=== PATIENT | female | born 1940 | race Two or more races ===

== ENCOUNTER 2017-12-21 12:18 | Inpatient (IN) | payer OTHER, MEDICAID ==
[2017-12-21] MEDS ORDERED: NS 1,000 ML IV ONE (12:25)
[2017-12-21 12:54] LABS: PLATELET COUNT 220 10^3/uL (150-400)
--- NOTE | 2017-12-21 13:49 | CPEKG ---
Heart Rate: 71 RR Interval: 845 P-R Interval: 188 QRSD Interval: 90 QT Interval: 416 QTC Interval: 453 P Mcfarland: 81 QRS Mcfarland: -30 T Wave Mcfarland: 75 EKG Severity - OTHERWISE NORMAL ECG - EKG Impression: SINUS RHYTHM EKG Impression: LEFT AXIS DEVIATION Electronically Signed By: Kirk Rosenberg 21-Dec-2017 14:45:57
--- NOTE | 2017-12-21 13:52 | EDPHY ---
H & P Time Seen by Provider: 12/21/17 12:51 HPI/ROS: CHIEF COMPLAINT: Weakness HISTORY OF PRESENT ILLNESS: The patient is brought in by paramedics with a reported history of weakness. The patient understands very little in question is unable to provide much history. I contacted her son-in-law who reports that his mother has been unable to get up several times today. She reportedly has had 3 falls at home. She did strike her head on one occasion. There has been no history of fever, vomiting, recent illness or medication changes. REVIEW OF SYSTEMS: A comprehensive 10 point review of systems is otherwise negative aside from elements mentioned in the history of present illness. Source: Patient Exam Limitations: No limitations - Physical Exam Exam: General Appearance: Elderly female, tremulous, no acute distress Eyes: Pupils equal and round no pallor or injection ENT, Mouth: Mucous membranes moist Respiratory: There are no retractions, lungs are clear to auscultation Cardiovascular: Regular rate and rhythm Gastrointestinal: Abdomen is soft and nontender, no masses, bowel sounds normal Neurological: Withdrawals to pain all 4 extremities, unable to participate in cranial nerve exam Skin: Warm and dry, no rashes Musculoskeletal: Neck is supple nontender Extremities: symmetrical, full range of motion Constitutional: Initial Vital Signs Temperature (C) 36.4 C 12/21/17 12:14 Heart Rate 62 12/21/17 12:14 Respiratory Rate 16 12/21/17 12:14 Blood Pressure 148/92 H 12/21/17 12:14 O2 Sat (%) 97 12/21/17 12:14 O2 Delivery Mode Room Air Allergies/Adverse Reactions: Sulfa (Sulfonamide Antibiotics) Allergy (Unknown, Verified 10/11/11 15:54) Unknown Home Medications: Medication Instructions Recorded Acetaminophen [Tylenol Tablet] 500 mg PO TID PRN 05/21/13 Cholecalciferol Vit D3 [Vitamin D3 5,000 units PO DAILY 05/21/13 2000 units (OTC)] Citalopram [celeXA 20 MG (RX)] 10 mg PO DAILY 05/21/13 Gabapentin [Neurontin 300 MG (RX)] 300 mg PO HS 05/21/13 Irbesartan [Avapro 150 mg (RX)] 150 mg PO DAILY 05/21/13 Meclizine HCl [Meclizine HCl 25 mg 12.5 mg PO DAILY 05/21/13 (RX,OTC)] Vitamin B Complex [Vitamin B 1 each PO HS 05/21/13 Complex (OTC)] amLODIPine BESYLATE [Norvasc 5 mg 5 mg PO DAILY 05/21/13 (RX)] oxyCODONE/APAP 5/325 [Percocet 1 tab PO DAILY 05/21/13 5/325 (RX)] Medical Decision Making - Diagnostics EKG Interpretation: EKG: Complete interpretation has been separately recorded in the [facility] archive. Summary impression: Sinus rhythm, no ischemic changes Imaging Results: Imaging Impressions Head CT 12/21/17 12:23 Impression: No evidence for acute intracranial abnormality. Moderate periventricular and deep hemispheric white matter change that can be seen with small vessel ischemic disease. Results called and discussed with Kirk Rosenberg MD on December 21, 2017 at 1302 hours. Head CTA 12/21/17 12:31 Impression: 1. No evidence for significant stenosis or dissection in either carotid artery or vertebral artery. 2. Evidence of prior cervical spine surgery and degenerative disk and degenerative joint disease. Measurement of carotid stenosis is based on the residual internal carotid diameter with [place] Symptomatic Carotid Endarterectomy Trial (NASCET) based stenosis levels. CT Angiogram of the Brain Clinical Indications: Possible CVA. Altered mental status. Technique: CT angiogram of the brain was performed with the uneventful intravenous administration of 85 mL Isovue-370 contrast. Multiplanar reconstructions including 3D reconstructions performed and evaluated on [employer] workstation in order to better evaluate the [place] vessels. Images were manipulated by the radiologist at the computer workstation. Dose reduction techniques were utilized. Findings: Major vessels of the [place] are adequately displayed, demonstrating no evidence of aneurysm, vascular malformation, flow-limiting stenosis, or occlusion. Bilateral cavernous internal carotid arteries and vertebrobasilar system demonstrates no evidence of flow limiting stenosis, aneurysm, occlusion, or dissection. Superior sagittal sinus, transverse sinuses , and major veins demonstrate no evidence of intraluminal thrombi. Impression: Negative CT angiogram of the brain. Results called and discussed with Kirk Rosenberg MD on December 21, 2017 at 1300 hours. Neck CTA 12/21/17 12:31 Impression: 1. No evidence for significant stenosis or dissection in either carotid artery or vertebral artery. 2. Evidence of prior cervical spine surgery and degenerative disk and degenerative joint disease. Measurement of carotid stenosis is based on the residual internal carotid diameter with [place] Symptomatic Carotid Endarterectomy Trial (NASCET) based stenosis levels. CT Angiogram of the Brain Clinical Indications: Possible CVA. Altered mental status. Technique: CT angiogram of the brain was performed with the uneventful intravenous administration of 85 mL Isovue-370 contrast. Multiplanar reconstructions including 3D reconstructions performed and evaluated on [employer] workstation in order to better evaluate the [place] vessels. Images were manipulated by the radiologist at the computer workstation. Dose reduction techniques were utilized. Findings: Major vessels of the [place] are adequately displayed, demonstrating no evidence of aneurysm, vascular malformation, flow-limiting stenosis, or occlusion. Bilateral cavernous internal carotid arteries and vertebrobasilar system demonstrates no evidence of flow limiting stenosis, aneurysm, occlusion, or dissection. Superior sagittal sinus, transverse sinuses , and major veins demonstrate no evidence of intraluminal thrombi. Impression: Negative CT angiogram of the brain. Results called and discussed with Kirk Rosenberg MD on December 21, 2017 at 1300 hours. ED Course/Re-evaluation: The patient presents to the ED with weakness and inability to stand. The patient is difficult to examine. She reportedly fell multiple times. She was taken for a stat CT scan of her head which demonstrates no evidence of intracranial hemorrhage or skull fracture. CT angiogram of the head neck demonstrate no evidence of stenosis or dissection. The patient had an IV established he received a L of normal saline. I contacted the patient's son-in-law who reports her daughter is in route to the hospital. Additional workup included a CBC which is normal in serum chemistries which are unremarkable. I re-evaluated the patient at 2:00 p.m. and she is more oriented. She complains of global weakness. She denies any chest pain, neck pain, numbness or weakness. Collateral information is obtained from the patient's daughter. She had been well yesterday. I am able to reexamined the patient clinically and she has no focal deficits noted on exam. She continues to have weakness with attempted ambulation without evidence of significant hypotension. At this point time I do feel the patient should be admitted to the hospital she is certainly a fall risk. High suspect the presentation today is multifactorial secondary to her age, chronic pain condition and diarrhea. Consultation was made with the hospitalist service. She will be admitted by Dr. Hill for observation. Differential Diagnosis: Differential diagnosis considered includes intracranial hemorrhage, ischemic stroke, carotid artery dissection, dehydration, metabolic abnormality, urinary tract infection - Data Points Laboratory Results: Laboratory Results 12/21/17 12:35 12/21/17 12:35 12/21/17 12/21/17 12/21/17 13:19 12:35 12:35 WBC RBC Hgb POC Hgb Hct POC Hct MCV MCH MCHC RDW Plt Count MPV Neut % (Auto) Lymph % (Auto) [place] % (Auto) Eos % (Auto) Baso % (Auto) Nucleat RBC Rel Count Absolute Neuts (auto) Absolute Lymphs (auto) Absolute Monos (auto) Absolute Eos (auto) Absolute Basos (auto) Absolute Nucleated RBC Immature Gran % Immature Gran # POC Sodium Sodium 136 mEq/L mEq/L (135-145) POC Potassium Potassium 4.4 mEq/L mEq/L (3.3-5.0) POC Chloride Chloride 103 mEq/L mEq/L (97-110) Carbon Dioxide 20 mEq/l L mEq/l (22-31) Anion Gap 13 mEq/L mEq/L (8-16) POC BUN BUN 15 mg/dL mg/dL (7-23) Creatinine 0.7 mg/dL mg/dL (0.6-1.0) POC Creatinine Estimated GFR > 60 Glucose 95 mg/dL mg/dL (70-100) POC Glucose Calcium 9.5 mg/dL mg/dL (8.5-10.4) Total Bilirubin 0.6 mg/dL mg/dL (0.1-1.4) Conjugated Bilirubin 0.5 mg/dL mg/dL (0.0-0.5) Unconjugated Bilirubin 0.1 mg/dL mg/dL (0.0-1.1) AST 33 IU/L IU/L (14-46) ALT 31 IU/L IU/L (9-52) Alkaline Phosphatase 126 IU/L IU/L (38-126) Troponin I < 0.012 ng/mL ng/mL (0.000-0.034) Total Protein 7.0 g/dL g/dL (6.3-8.2) Albumin 3.9 g/dL g/dL (3.5-5.0) Lipase 45 IU/L IU/L (23-300) Urine Color PALE YELLOW Urine Appearance CLEAR Urine pH 7.0 (5.0-7.5) Ur Specific [place] 1.005 (1.002-1.030) Urine Protein NEGATIVE (NEGATIVE) Urine Ketones NEGATIVE (NEGATIVE) Urine Blood NEGATIVE (NEGATIVE) Urine Nitrate NEGATIVE (NEGATIVE) Urine Bilirubin NEGATIVE (NEGATIVE) Urine Urobilinogen NEGATIVE EU EU (0.2-1.0) Ur Leukocyte Esterase NEGATIVE (NEGATIVE) Urine RBC NONE SEEN /hpf /hpf (0-3) Urine WBC 1-3 /hpf /hpf (0-3) Ur Epithelial Cells NONE SEEN /lpf /lpf (NONE-1+) Urine Bacteria TRACE /hpf H /hpf (NONE SEEN) Urine Glucose NEGATIVE (NEGATIVE) 12/21/17 12/21/17 12:35 12:30 WBC 7.81 10^3/uL 10^3/uL (3.80-9.50) RBC 4.17 10^6/uL L 10^6/uL (4.18-5.33) Hgb 11.6 g/dL L g/dL (12.6-16.3) POC Hgb 13.6 gm/dL gm/dL (12.6-16.3) Hct 35.4 % L % (38.0-47.0) POC Hct 40 % % (38-47) MCV 84.9 fL fL (81.5-99.8) MCH 27.8 pg L pg (27.9-34.1) MCHC 32.8 g/dL g/dL (32.4-36.7) RDW 15.8 % H % (11.5-15.2) Plt Count 220 10^3/uL 10^3/uL (150-400) MPV 9.5 fL fL (8.7-11.7) Neut % (Auto) 67.3 % % (39.3-74.2) Lymph % (Auto) 21.4 % % (15.0-45.0) [place] % (Auto) 9.7 % % (4.5-13.0) Eos % (Auto) 1.0 % % (0.6-7.6) Baso % (Auto) 0.3 % % (0.3-1.7) Nucleat RBC Rel Count 0.0 % % (0.0-0.2) Absolute Neuts (auto) 5.26 10^3/uL 10^3/uL (1.70-6.50) Absolute Lymphs (auto) 1.67 10^3/uL 10^3/uL (1.00-3.00) Absolute Monos (auto) 0.76 10^3/uL 10^3/uL (0.30-0.80) Absolute Eos (auto) 0.08 10^3/uL 10^3/uL (0.03-0.40) Absolute Basos (auto) 0.02 10^3/uL 10^3/uL (0.02-0.10) Absolute Nucleated RBC 0.00 10^3/uL 10^3/uL (0-0.01) Immature Gran % 0.3 % % (0.0-1.1) Immature Gran # 0.02 10^3/uL 10^3/uL (0.00-0.10) POC Sodium 136 mEq/L mEq/L (135-145) Sodium POC Potassium 4.2 mEq/L mEq/L (3.3-5.0) Potassium POC Chloride 102 mEq/L mEq/L (97-110) Chloride Carbon Dioxide Anion Gap POC BUN 17 mg/dL mg/dL (7-23) BUN Creatinine POC Creatinine 0.8 mg/dL mg/dL (0.6-1.0) Estimated GFR Glucose POC Glucose 96 mg/dL mg/dL (70-100) Calcium Total Bilirubin Conjugated Bilirubin Unconjugated Bilirubin AST ALT Alkaline Phosphatase Troponin I Total Protein Albumin Lipase Urine Color Urine Appearance Urine pH Ur Specific [place] Urine Protein Urine Ketones Urine Blood Urine Nitrate Urine Bilirubin Urine Urobilinogen Ur Leukocyte Esterase Urine RBC Urine WBC Ur Epithelial Cells Urine Bacteria Urine Glucose Medications Given: Discontinued Medications Sodium Chloride (Ns) 1,000 mls @ 0 mls/hr IV EDNOW ONE; Wide Open PRN Reason: Protocol Stop: 12/21/17 12:26 Last Admin: 12/21/17 12:53 Dose: 1,000 mls Point of Care Test Results: 12/21/17 12:30 POC Sodium 136 POC Potassium 4.2 POC Chloride 102 POC BUN 17 POC Creatinine 0.8 POC Glucose 96 Departure - Departure Disposition: [facility] Clinical Impression: Diarrhea, Pre-syncope Condition: Good Referrals: Patient,NotPresent [Primary Care Provider] - As per Instructions
[2017-12-21] MEDS ORDERED: ONDANSETRON 4 MG/2 ML VIAL IVP PRN (14:13)
[2017-12-21] MEDS ORDERED: ONDANSETRON DISINTEGRATING 4 MG TAB PO PRN (14:13)
[2017-12-21] MEDS: NS 1,000 ML IV SCH (15:33)
[2017-12-21] MEDS: ACETAMINOPHEN 325 MG TAB PO PRN ×2 (15:33→19:42)
--- NOTE | 2017-12-21 15:34 | ASMTCMCOM ---
CM Note CM Note Notes: Pt presented to the ED via EMS for AMS and a Stroke Alert was called. After pt's daughter, Giovanny ([phone]) arrived to the ED, pt's AMS had somewhat improved but pt was still very weak and requiring pretty much 2-person/max assist. At one point, Giovanny states that this presentation is the pt's baseline but then she also said that pt can normally get to the bathroom without assistance. Pt had several falls this morning. Pt recently had [facility] from 08/20-09/09/17 (ordered by her PCP Dr Morris) for PT. Pt admitted for AMS, diarrhea and pre-syncope. Pt lives w/her and Giovanny and her , Franny Chavez ([phone], ) in a house in [place]. Giovanny and Franny are the pt and her 's full-time caregivers and they don't report having any additional assistance. Anticipate PT/OT/[employer] eval and consideration for SNF vs Home w/HC and/or family. Depending on pt's presentation at discharge, if pt and family want pt to return home, discuss options for non-skilled and skilled HC assistance. Exact DC needs unknown, CM to follow. Date Signed: 12/21/2017 03:33 PM Electronically Signed By:Paola Gamez RN
--- NOTE | 2017-12-21 16:02 | ASMTCASEMG ---
Living Arrangements What is your living Answers: With Other Relative(s) arrangement? Who do you live with? Type Of Residence What kind of residence do Answers: House you live in? Type of Residence Facility Name Notes: Private home w/ 88-yr-old and her daughter and son-in-law Services Used Prior to Admission Home Services Used Prior Answers: Homemaking to Admission Other Services Used Prior to Admission Notes: pt's daughter says they have someone come by 2x/week to help with cleaning the house. Home/Community Service Agency Name(s) Notes: [facility] Case Management Evaluation Functional: ADL / IADL Answers: Cognitive Deficiency Performance Deficits Due to: Deconditioning Mobility Issues Date Signed: 12/21/2017 04:01 PM Electronically Signed By:Paola Gamez RN
--- NOTE | 2017-12-21 16:42 | GHP ---
[f rep st] HISTORY AND PHYSICAL DATE OF ADMISSION: 12/21/2017 CHIEF COMPLAINT: Weakness, falls. HISTORY OF PRESENT ILLNESS: This is a 77-year-old female who has a history of low back pain on chron ic tramadol, which she has been known to affect her gait as well as hypertension and some other medic al problems. She does not speak any [place]iqu[place], and history is obtained from chart and from talking to the patient's son-in-law. This morning, according to her son, she fell multiple times. She also has had diarrhea for a day. She does admit to chills and some vague abdominal pain. No dysuria. Furth er history is limited by language barrier. REVIEW OF SYSTEMS: Limited review of systems obtained secondary to patient's language barrier. PAST MEDICAL HISTORY: 1. Chronic back pain. 2. Depression. 3. Hypertension. 4. History of aortic regurgitation on echo in 2010. MEDICATIONS: Reviewed. SOCIAL HISTORY: No smoking. Lives with her family. FAMILY HISTORY: Both parents are . PHYSICAL EXAM: VITAL SIGNS: Afebrile. Blood pressure is 158/85, heart rate 79, oxygen saturation 9 8% on room air. GENERAL: Patient is well developed and is shivering a little bit and does admit to being cold. HEENT: Nonicteric sclerae. Dry mucous membranes. NECK: Supple. No thyromegaly. LOPEZ GS effort. Clear to auscultation bilaterally. CARDIOVASCULAR: Regular rate and rhythm. 2/6 systol ic murmur. ABDOMEN: Positive bowel sounds. Soft, nontender, nondistended. No hepatosplenomegaly. EXTREMITIES: No clubbing, cyanosis, or edema. SKIN: Without rash, dry, intact. NEUROLOGIC: Aler t, moving all 4 extremities equally. PSYCH: Normal affect. LABS: CBC is essentially normal, though has a mild anemia. Chemistries normal. LFTs are normal. U A is negative. Head CT did not show any acute abnormalities. EKG personally reviewed and interprete d. This is a normal sinus rhythm. No ischemic changes. ASSESSMENT: This is a 77-year-old female presenting with weakness and falls. PLAN: 1. Weakness and falls could be due to underlying infection, possibly a gastroenteritis. This is pro bably in combination with her chronic pain medicine use which is probably lowering her resiliency. W e will get a GI panel. We will give her a little bit of IV fluid. We will have PT and OT see the mariann danielle as well. 2. Hypertension. We will continue her medications. 3. Back pain. Will try to hold tramadol if possible. /[id number]/MODL
[2017-12-21] MEDS ORDERED: IOPAMIDOL (ISOVUE 370) 100 ML BTL IV ONE (19:13)
[2017-12-22] MEDS ORDERED: traMADol 50 MG TAB PO PRN (07:44)
[2017-12-22] MEDS: IRBESARTAN 150 MG TAB PO SCH (08:38)
[2017-12-22] MEDS ORDERED: amLODIPine BESYLATE 5 MG TAB PO SCH (09:00)
[2017-12-22] MEDS: hydrALAZINE 10 MG TAB PO PRN (13:06)
--- NOTE | 2017-12-22 13:22 | HOSPPROG ---
Hospitalist Progress Note Assessment/Plan: Melany is a 77 y/o non speaking female who presented to the ER with weakness and falls. Today is my first encounter with the patient, chart reviewed. *gait instability with multiple falls -when I evaluated her, she was extremely weak, had diff standing with the RN and tech w use of the walker -CT of the head is negative -other imaging is negative -urinalysis shows no infectious etiology, GI pathogen negative -OT is recommending home care x 24 hours or SNF *chronic back pain on chronic continuous pain meds -on tramadol and oxy -will do a trial of scheduled Tylenol *HTN -bp is quite elevated -resumed home med -added prn med *DVT prophylaxis: LMWH to be initiated *Plan :Melany is much too weak to return home today, concerned she needs more care and more support in her home setting, Reviewed her care with CM who will talk with her children. She will require another midnight stay to evaluate ongoing needs. Subjective: Melany says 'no' when I asked her if she is in pain. Objective: Vital Signs Temp Pulse Resp BP Pulse Ox 37.2 C 66 16 207/109 H 95 12/22/17 08:00 12/22/17 11:40 12/22/17 11:40 12/22/17 13:06 12/22/17 11:40 Microbiology 12/21/17 16:02 Gastrointestinal Tract Panel (PCR) - Final Stool No Organism Detected 12/21/17 12/22/17 12/23/17 05:59 05:59 05:59 Intake Total 100 Output Total 2 Balance 98 - Physical Exam Constitutional: chronically ill appearing Eyes: PERRL Ears, Nose, Mouth, Throat: hearing normal Cardiovascular: regular rate and rhythym Respiratory: no respiratory distress Genitourinary: other (incontinent of urine) Skin: warm Musculoskeletal: generalized weakness Neurologic: other (alert) Psychiatric: interacting appropriately ICD10 Worksheet Patient Problems: Problems Problem Status Onset Diarrhea Acute Pre-syncope Acute Primary osteoarthritis of left knee Acute Primary osteoarthritis of one knee Acute
[2017-12-22] MEDS: NS 1,000 ML IV SCH (14:33)
--- NOTE | 2017-12-22 15:05 | ASMTCMCOM ---
CM Note CM Note Notes: Spoke with WILFRIDO Sung who is concerned about patient's deconditioning and her living circumstances. Patient's son in law reported patient had multiple falls prior to being admitted to the hospital on this admission. Still awaiting PT/OT eval recommendations. Possibly SNF rehab to get patient stronger before going home. Will talk to patient and her family at next opportunity. CM will follow. Date Signed: 12/22/2017 03:05 PM Electronically Signed By:Sarah Daly LCSW
--- NOTE | 2017-12-22 20:07 | PDMN ---
Medical Necessity Medical necessity: change to IP; los>2mn for gait instability and multiple falls , extreme weakness, difficulty standing with 2 person assist and walker, and elevated BP; requires continued PT/OT/ST, and safe dispo at discharge; comorbid chronic back pain on continuous pain meds; per order and progress note 12/22/17
[2017-12-23] MEDS: IRBESARTAN 150 MG TAB PO SCH (08:49)
[2017-12-23] MEDS: ENOXAPARIN 40 MG/0.4 ML SYR SC SCH (08:50)
--- NOTE | 2017-12-23 11:35 | HOSPPROG ---
Hospitalist Progress Note Assessment/Plan: Melany is a 77 y/o non speaking female who presented to the ER with weakness and falls. *gait instability with multiple falls -patient shared she needs help at home but her family is 'old' too and have trouble -CT of the head is negative -other imaging is negative -urinalysis shows no infectious etiology, GI pathogen negative -OT is recommending home care x 24 hours or SNF *FTT -not wanting to eat or drink -trial of protein shakes *+ murmur -get an echo to evaluate her ef and valves *chronic back pain on chronic continuous pain meds -on tramadol and oxy -will do a trial of scheduled Tylenol -she denies pain when I evaluated her *HTN -bp is elevated -resumed home med, and increased the dose -prn med *DVT prophylaxis: LMWH *Plan : get an echo to r/o any cardiac involvement in causing her weakness, add protein shakes, will ask a pediatric psychologist to see Subjective: Melany has no c/o pain, doesn't want to eat the food. Says she's not hungry or thirsty. Objective: Vital Signs Temp Pulse Resp BP Pulse Ox 36.8 C 64 18 160/80 H 98 12/23/17 11:06 12/23/17 11:06 12/23/17 11:06 12/23/17 11:06 12/23/17 11:06 12/22/17 12/23/17 12/24/17 05:59 05:59 05:59 Intake Total 100 1383 Output Total 2 Balance 98 1383 - Physical Exam Constitutional: no apparent distress, not in pain, chronically ill appearing Eyes: PERRL Ears, Nose, Mouth, Throat: hearing normal Cardiovascular: regular rate and rhythym, systolic murmur Respiratory: no respiratory distress Gastrointestinal: normoactive bowel sounds Skin: warm Musculoskeletal: generalized weakness Neurologic: AAOx3 Psychiatric: interacting appropriately ICD10 Worksheet Patient Problems: Problems Problem Status Onset Diarrhea Acute Pre-syncope Acute Primary osteoarthritis of left knee Acute Primary osteoarthritis of one knee Acute
--- NOTE | 2017-12-23 15:13 | ASMTCMCOM ---
CM Note CM Note Notes: Met with patient, patient's daughter, Giovanny, and son-in-law, Franny, Physical therapist, [place] and myself, case hardener.We reviewed what symptoms had led to patient being brought to the hospital including several falls. Patient has total neglect of the right side. She has been chewing food on the left side of her mouth for long periods of time and then spitting it out. We discusses patient's need for a soft foods diet which will be discussed with the speech therapist at 2:45 this afternoon. Patient is weak and debilitated from her baseline. Patient and her family agree to SNF rehab as d/c plan to get her back to baseline before returning home. We do not have a clear diagnosis at this time and patient will be going for an MRI, so plan may need to change depending on patient's progress. Referrals have been sent to several SNF rehab programs that are close to patient's family home. We will stay in touch with family members who will make the final decision based on which facilities have beds. Franny provided the MDPOA papers which were placed in the front of patient's chart. The family is very supportive and available to participate in patient's care. CM will follow. Date Signed: 12/23/2017 03:13 PM Electronically Signed By:Sarah Daly LCSW
--- NOTE | 2017-12-23 15:58 | ECHO ---
[email or web address] [address] [address] Main: [phone] Fax: Transthoracic Echocardiogram Name: WERO RODRIGUEZ MR#: [id number] Study Date: 12/23/2017 Study Time: 02:42 PM Date of : 1940 Age: 77 year(s) Height: 152.4 cm (60 in.) Weight: 49.9 kg (110 lb.) BSA: 1.45 m2 Gender: Female Examination: Echo Indication: Murmur, Weakness Image Quality: Contrast: Requested by: Angelica Willson BP: 180 mmHg/89 mmHg Heart Rate: Rhythm: Normal sinus rhythm Indication: Murmur, Weakness Procedure Staff Bridge Design Engineer: Irvin Chiang RDCS Reading Physician: Emmanuel Canela MD Requesting Provider: Conclusions: No pericardial effusion. Ejection fraction 74% without regional wall motion abnormalities. Mitral annular calcification with mild mitral regurgitation. Mild to moderate aortic regurgitation with aortic valve calcification and normal left ventricular end-diastolic dimension. Measurements: Chambers Valvular Assessment AV/MV Valvular Assessment TV/PV Normal Normal Normal Name Value Range Name Value Range Name Value Range Ao Sakshi (MM): 2.9 cm (2.2 cm-3.7 AV Vmax: 2.16 m/s (1 m/s-1.7 PV Vmax: 1.14 m/s (0.6 m/s-0.9 cm) m/s) m/s) IVSd (2D): 0.7 cm (0.6 cm-1.1 AV maxP mmHg ( - ) PV PGmax: 5 mmHg ( - ) cm) AV meanP mmHg ( - ) LVDd (2D): 3.8 cm (3.9 cm-5.3 GREGG (VTI): 2.1 cm ( - ) cm) AR (PHT): 763 ms ( - ) LVDs (2D): 2.2 cm (2.1 cm-4 MV E Vmax: 0.57 m/s ( - ) cm) MV A Vmax: 1.18 m/s ( - ) LVPWd (2D): 0.9 cm ( - ) MV E/A: 0.48 ( - ) LVOTd 1.9 cm 1.9 cm mm MV meanP mmHg ( - ) LVEF (2D): 74 (>=54 %) MVA (Vmax): 2.5 m/s ( - ) Continued Measurements: Chambers Valvular Assessment AV/MV Name Value Name Value LADs Lon.1 cm MV Annulus: 2.9 cm LA Area: 12.9 cm2 MV E' Septal: 0.04 m/s LA Volume: 35 ml MV E/E' Septal: 13.70 LA Volume Index: 24.1 ml/m2 MV VTI: 37.80 cm AR Vmax: 4.12 cm/s Patient: WERO RODRIGUEZ Study Date: 12/23/2017 Page 1 of 2 02:42 PM AR ERO: 0.350 cm2 AR PISA radius: 0.5 cm AR Reg. Volume: 91.0 ml AR Reg. Fraction: 95 % AR VTI: 261.0 cm Findings: Left Ventricle: Normal size left ventricle. No LV hypertrophy. Normal global systolic LV function. EF is 74 %. No regional wall motion abnormality. Normal diastolic LV function. Right Ventricle: Normal size right ventricle. Normal RV function. Left Atrium: The left atrium is normal in size. Right Atrium: The right atrium is normal in size. Mitral Valve: Mild mitral valve leaflet calcification is present. Mild mitral valve regurgitation is present. Aortic Valve: Mild aortic cusp calcification is noted. Mild to moderate aortic valve regurgitation. Tricuspid Valve: The tricuspid valve appears normal. Pulmonic Valve: The pulmonic valve is normal in appearance and function. Aorta: The aorta is normal. Pericardium: No pericardial effusion. (No Signature Object) Patient: WERO RODRIGUEZ Study Date: 12/23/2017 Page 2 of 2 02:42 PM [id number]
[2017-12-23] MEDS: hydrALAZINE 10 MG TAB PO PRN (16:05)
[2017-12-23] MEDS: ASPIRIN 81 MG CHEWABLE TAB PO SCH (19:18)
--- NOTE | 2017-12-23 22:00 | HOSPPROG ---
Hospitalist Progress Note Assessment/Plan: x-cover note Notified by Radiology of acute cva Case discussed with Dr. Zambrano No indication for tpa given time course Findings discussed with patient plan stroke protocol order set completed tele monitoring aspirin PT/OT Neuro to see in AM Objective: Vital Signs Temp Pulse Resp BP Pulse Ox 37.1 C 83 17 162/78 H 97 12/23/17 19:51 12/23/17 19:51 12/23/17 19:51 12/23/17 19:51 12/23/17 19:51 12/22/17 12/23/17 12/24/17 05:59 05:59 05:59 Intake Total 100 1383 300 Output Total 2 Balance 98 1383 300 ICD10 Worksheet Patient Problems: Problems Problem Status Onset Primary osteoarthritis of one knee Acute Primary osteoarthritis of left knee Acute Diarrhea Acute Pre-syncope Acute
[2017-12-24] MEDS: ASPIRIN 81 MG CHEWABLE TAB PO SCH (09:10)
[2017-12-24] MEDS: ENOXAPARIN 40 MG/0.4 ML SYR SC SCH (09:10)
--- NOTE | 2017-12-24 09:56 | NEUROPROG ---
Assessment: [id number] - Neurology Consult: - CC: Dr. Chris Soto consulted neurology for stroke. Results placed in EMR or his review. - HPI: Pt admitted to [facility] on 12/21/17 for recurrent falls, listing to the left and weakness. On 12/21/17 she had a CTA head/neck which was unremarkable for vessel abnormality. On 12/23/17 a brain MRI w/o con showed an left occipital stroke in the G[employer]ERNMENT EMPLOYEE distribution. A TTE showed no cardiac thrombus. LDL on 12/24/17 was 88. Telemetry had no shone an afib. On admission patient was on aspirin 81 mg qd but not on a statin. I initially saw the patient on 12/24/17. Her neurologic exam was difficult as she was a non-spanish speaker so communication was provided by a rn supplemental over the phone. It appeared she was not oriented to date, age, or location and also had ataxia of left arm as well as problems counting fingers to the left. I recommended changing aspirin 81 mg qd to plavix 75 mg qd (stroke occurred on aspirin) and beginning a statin (LDL was 88 but goal < 70). I also recommended a conveyor monitor skilled nursing for evaluation for paroxysmal afib. Pt was being assessed by PT/OT/Speech for any rehab needs. - PMHx: chronic back pain, depression, HTN, AR - SHx: no tobacco FHx: parents - ROS: Pt denied acute fever, total vision loss, active severe chest pain, respiratory failure, total body severe rash, total bowel/bladder incontinence, psychosis, active seizures, or active bleeding - O: VS reviewed General: Alert Eyes: Fundoscopic exam not able to visualize optic disks CV: Heart RRR, no murmur, no carotid bruit Lungs: Clear to auscultation bilaterally, no rhonchi or rales Neuro: - Mental: mental status was very difficult to assess via phone rn supplemental . Oriented x person but not age, place, or date . concentration appears normal . speech fluency/comprehension normal . memory appears normal . fund of knowledge appear intact - Cranial Nerves: . II: PERRL, VF appeared possibly reduced on left . III/IV/: EOMI, no nystagmus, normal smooth pursuits, no Ptosis . V: facial sensation intact to LT . VII: face symmetric to eye closure and smile . VIII: hearing intact to conversation . IX/X: uvula raises symmetrically . XI: SCM 5/5 B/L strength . XII: tongue protrudes midline w/nl strength - Motor: . Tone: normal tone in all 4 extremity . Strength: no pronator drift, strength 5/5 throughout (B/L delt, bic, tri, hand converter skimmer, hf/he, df/pf) - Reflexes: B/L bic 2/4 - Sensory: all 4 extremity intact to light touch - Coord: left hand discoordination - Gait: deferred - NIH SS 4 (did not know age or date, left hand discoordination, problems counting fingers on left) - Labs: 12/24/17- LDL 88 - Rads: 12/21/17- CTA head/neck: unremarkable for significant vessel abnormality 12/23/17- TTE: no cardiac thrombus reported 12/23/17- Brain MRI w/o con: acute large left occipital lobe infarct in G[employer]ERNMENT EMPLOYEE distribution, mild atrophy, mod CMVD (I personally visualized the images on 12/24) - Assessment: 1. Left GOVERNMENT EMPLOYEE distribution stroke on 12/21/17: Neurologic exam on 12/24/17 showed NIH SS 4 (did not know age or date, left hand discoordination, problems counting fingers on left) but was very difficult due to a language barrier and use of a phone supervisor pipeline. She appears to have stroke from a large emboli to the left GOVERNMENT EMPLOYEE. CTA head/neck, TTE, telemetry have been unrevealing for cause. I will recommend changing aspirin to plavix 75 mg qd (stroke occurred on aspirin ), beginning a statin with LDL goal < 70 (88 on 12/24/17), and having cardiology place a halfway conveyor monitor for paroxysmal afib detection. - Plan: - Recommend cardiology place halfway conveyor monitor to assess for paroxysmal afib - Work closely with outpatient PCM to ensure terminal operations supervisor blood pressure < 140/90, H1AC < 7.0, and LDL < 70 - Recommend statin for LDL goal < 70 (currently 88) - PT/OT/Speech consults to determine rehab need - Change aspirin 81 mg qd to Plavix 75 mg qd for stroke prevention (stroke on occurred on aspirin) - I will check in on her later today to see if her son is at bedside so I can discuss her stroke with him, if he is not at bedside I will try to give him a call - F/U in neurology clinic 1-4 weeks after discharge - No further neurologic w/u needed at this time, neurology will sign off Objective: Vital Signs Temp Pulse Resp BP Pulse Ox 36.9 C 61 16 156/82 H 96 12/24/17 08:32 12/24/17 08:32 12/24/17 08:32 12/24/17 08:32 12/24/17 08:32 12/23/17 12/24/17 12/25/17 05:59 05:59 05:59 Output Total 500 Balance -500 Allergies/Adverse Reactions: Sulfa (Sulfonamide Antibiotics) Allergy (Unknown, Verified 10/11/11 15:54) Unknown
--- NOTE | 2017-12-24 11:45 | HOSPPROG ---
Hospitalist Progress Note Assessment/Plan: Melany is a 77 y/o non speaking female who presented to the ER with weakness and falls. 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 -appreciate Dr Zambrano -Plavix, statin, permissive hypertension in the setting of a stroke -spoke with Cardiology about placement of monitoring coordinator -echo shows no thrombus -previous CT imaging did not show evidence of a large vessel stroke -therapies to see her -JEFRY in the morning -appreciate Radha Bunch seeing Melany *gait instability with multiple falls -patient shared she needs help at home but her family is 'old' too and have trouble *FTT -eating well today -trial of protein shakes *chronic back pain on chronic continuous pain meds -on tramadol and oxy -will do a trial of scheduled Tylenol -she denies pain when I evaluated her *HTN, allow for permissive -in the setting *DVT prophylaxis: LMWH *Plan : JEFRY in the morning Subjective: Melany is feeling well, happy, talkative today. Objective: Vital Signs Temp Pulse Resp BP Pulse Ox 36.9 C 61 16 156/82 H 96 12/24/17 08:32 12/24/17 08:32 12/24/17 08:32 12/24/17 08:32 12/24/17 08:32 12/23/17 12/24/17 12/25/17 05:59 05:59 05:59 Output Total 500 100 Balance -500 -100 - Physical Exam Constitutional: no apparent distress, appears nourished Eyes: PERRL Ears, Nose, Mouth, Throat: hearing normal Cardiovascular: regular rate and rhythym Respiratory: no respiratory distress Skin: warm Musculoskeletal: generalized weakness Neurologic: weakness, other (alert), No pronator drift, No facial droop Psychiatric: interacting appropriately ICD10 Worksheet Patient Problems: Problems Problem Status Onset Diarrhea Acute Pre-syncope Acute Primary osteoarthritis of left knee Acute Primary osteoarthritis of one knee Acute
--- NOTE | 2017-12-24 14:14 | GCON ---
[f rep st] CONSULTATION CARDIOLOGY CONSULTATION DATE OF CONSULTATION: 12/24/2017 We were asked by Angelica Willson of [facility] to evaluate the patient for her stroke. HPI: The patient is a 77-year-old female with a history of hypertension and chronic back pain, who was admitted for recurrent falls. Apparently, the day of her admission, she had multiple falls and a bout of diarrhea within that day. She was admitted for further evaluation mostly for failure to thrive. Head, neck CT showed no evidence of significant stenosis in carotid or vertebral arteries. CTA of the brain showed a negative exam. On brain MRI, she was found to have acute infarct of the left occipital lobe, left thalamus, and left posterior cerebral artery. This was suggestive of acute embolic event. We are thus consulted to further evaluate etiology of her stroke. The patient denies any recent palpitations, chest pains, or dyspnea. She is conversant and is oriented to place and time. PAST MEDICAL HISTORY: 1. Chronic back pain. 2. Depression. 3. Hypertension. 4. History of previous aortic regurgitation on echo. SOCIAL HISTORY: The patient reports that she lives alone. She is a nonsmoker. FAMILY HISTORY: Parents are . REVIEW OF SYSTEMS: As per HPI. A complete 10-point review of systems was obtained and was negative except for what was dictated. OUTPATIENT MEDICATIONS: Include amlodipine, vitamin D3, aspirin, tramadol, Percocet, vitamin B complex, diclofenac, mirtazapine, meclizine, Avapro. ALLERGIES: To sulfonamides. PHYSICAL EXAMINATION: VITAL SIGNS: BP of 133/49, heart rate 65, respirations 13, O2 saturation 97% on room air, temp of 98.2 degrees Fahrenheit. GENERAL: She is a very pleasant female in no apparent distress. HEENT: Eyes are DESIRE. NECK: Supple with no JVD. HEART: Regular rate and rhythm with a 2/6 systolic ejection murmur. LUNGS: Mildly diminished without rales or rhonchi. ABDOMEN: Soft. SKIN: Warm and dry. PSYCH: Normal mood and affect for given situation. LABORATORY DATA: CBC with WBC 7.1, hemoglobin 11.6, hematocrit 35.4, platelet count of 220. BMP was sodium 136, potassium 4.4, chloride 103, CO2 20, BUN 15, creatinine 0.7, glucose of 95, triglycerides 54, total cholesterol 162, LDL of 88, HDL of 63. TEST DATA: A 12-lead ECG personally interpreted demonstrates sinus rhythm. echo shows EF of 74. Mitral annular calcification. Mild MR, mild to moderate AR, and aortic valve calcifications. IMPRESSION AND PLAN: The patient is a 77-year-old female admitted with frequent falls, who is now found to have an acute left occipital stroke in the WATER [employer] distribution. Acute stroke, suggestive of an embolic event. We recommend JEFRY to rule out thrombus. Furthermore, she should have an implantable loop recorder to rule out atrial fibrillation. At present, we agree with Plavix and aspirin therapy. Should there be evidence of thrombus, then she would likely be a better candidate for full anticoagulation. However, if she is deemed too risky for full anticoagulation, Plavix and aspirin may be adequate for the time being. Should her monitoring reveal atrial fibrillation, then she potentially is a candidate for a Watchman or other left atrial appendage closure device. More recommendations to follow after speaking with family. /[id number]/MODL MTDD
--- NOTE | 2017-12-24 15:09 | ASMTCMCOM ---
CM Note CM Note Notes: Several SNFs confirm pt has Medicare B only, no Medicare A SNF benefit. This means pt needs to go to SNF under Medicaid, pt is already open with Medicaid LTC her [facility] shoe parts caser is Estefania Beth. [id number] faxed to [facility] today and voicemail left for Estefania. Pt will require [facility] functional assessment. [facility] can accept pt for 30 day Medicaid stay. Pt family updated. CM to follow. Date Signed: 12/24/2017 03:09 PM Electronically Signed By:AMADOU Burton
--- NOTE | 2017-12-24 15:18 | ASMTCMCOM ---
CM Note CM Note Notes: Pt dghtr calls to report she does not want pt to go to a Medicaid SNF, wants to take pt home with HHC. CM to follow. Date Signed: 12/24/2017 03:17 PM Electronically Signed By:AMADOU Burton
[2017-12-24] MEDS: ATORVASTATIN CALCIUM 40 MG TAB PO SCH (15:22)
[2017-12-25] MEDS ORDERED: ATROPINE SULFATE 1 MG/10 ML SYR IVP ONE (06:00)
[2017-12-25] MEDS ORDERED: NS 1,000 ML IV ONE (06:00)
[2017-12-25 06:01] LABS: INR 1.02 (0.83-1.16); PROTIME(PATIENT) 13.6 SEC (12.0-15.0)
[2017-12-25] MEDS ORDERED: LIDOCAINE 1% 300 MG/30 ML SDV SC ONE ×2 (08:00→10:25)
--- NOTE | 2017-12-25 08:57 | HOSPPROG ---
Hospitalist Progress Note Assessment/Plan: Melany is a 77 y/o non speaking female who presented to the ER with weakness and falls. 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 -appreciate Dr Zambrano -Plavix, statin, permissive hypertension in the setting of a stroke -echo shows no thrombus -previous CT imaging did not show evidence of a large vessel stroke -therapies to see her -JEFRY this morning to r/o thrombus, to get placement of forest law and policy professor *gait instability with multiple falls -due to the above *FTT -eating well today *chronic back pain on chronic continuous pain meds -on tramadol and oxy -will do a trial of scheduled Tylenol -she denies pain when I evaluated her *HTN, allow for permissive -in the setting *DVT prophylaxis: LMWH *Plan : JEFRY today, likely dc tomorrow Subjective: Melany is saying she is hungry and wants to eat today. Objective: Vital Signs Temp Pulse Resp BP Pulse Ox 36.7 C 61 16 167/70 H 96 12/25/17 07:26 12/25/17 07:26 12/25/17 07:26 12/25/17 07:26 12/25/17 07:26 Laboratory Results 12/25/17 05:18 12/24/17 12/25/17 12/26/17 05:59 05:59 05:59 Intake Total 1200 Output Total 500 200 100 Balance -500 1000 -100 PT 13.6 SEC (12.0-15.0) 12/25/17 05:18 INR 1.02 (0.83-1.16) 12/25/17 05:18 - Physical Exam Constitutional: no apparent distress, appears nourished, not in pain Eyes: PERRL Ears, Nose, Mouth, Throat: hearing normal Cardiovascular: regular rate and rhythym Respiratory: no respiratory distress Gastrointestinal: normoactive bowel sounds Skin: warm Musculoskeletal: generalized weakness Neurologic: other (alert and oriented to herself, more conversant) Psychiatric: interacting appropriately ICD10 Worksheet Patient Problems: Problems Problem Status Onset Diarrhea Acute Pre-syncope Acute Primary osteoarthritis of left knee Acute Primary osteoarthritis of one knee Acute
--- NOTE | 2017-12-25 09:16 | CPEKG ---
Heart Rate: 54 RR Interval: 1111 P-R Interval: 144 QRSD Interval: 86 QT Interval: 528 QTC Interval: 501 P Gifford: 53 QRS Gifford: -20 T Wave Gifford: -76 EKG Severity - ABNORMAL ECG - EKG Impression: SINUS RHYTHM EKG Impression: BORDERLINE LEFT AXIS DEVIATION EKG Impression: NONSPECIFIC T ABNORMALITIES, DIFFUSE LEADS EKG Impression: BORDERLINE PROLONGED QT INTERVAL Electronically Signed By: Emery Billingsley 25-Dec-2017 10:46:09
[2017-12-25] MEDS ORDERED: NS 1,000 ML IV SCH (09:30)
--- NOTE | 2017-12-25 10:18 | PDHPUP ---
History & Physical Update H&P update statement: This history and physical update is based on an assessment of the patient which was completed after admission or registration (within 24 hours), but prior to the surgery/procedure. H&P update: H&P reviewed & patient examined, no change in patient's condition since H&P completed
[2017-12-25] MEDS ORDERED: PROPOFOL 200 MG/20 ML VIAL ONE (10:24)
[2017-12-25] MEDS ORDERED: LIDOCAINE 1% 300 MG/30 ML SDV ONE (10:28)
--- NOTE | 2017-12-25 10:48 | PDCTREPORT ---
Cardiothoracic Procedure Rpt Cardiothoracic Procedure Report: Implantation of a Medtronic loop recorder. After obtaining informed consent with a [employer] special[employer] operator, the left tran pectoral region was sterilely prepped and draped. A small area was infiltrated with 2% xylocaine. Using blunt dissection a loop recorder was inserted under the skin. Conclusions successful implantation of a Medtronic LINQ loop recorder. Patient Problems: Problems Problem Status Onset Primary osteoarthritis of one knee Acute Primary osteoarthritis of left knee Acute Diarrhea Acute Pre-syncope Acute
--- NOTE | 2017-12-25 10:56 | PDANEPAE ---
ANE Past Medical History - Pulmonary History Hx Oxygen in Use at Home: No Hx Sleep Apnea: No - Endocrine History Hx Diabetes: No ANE Review of Systems Review of Systems: ANE Patient History - Allergies Allergies/Adverse Reactions: Sulfa (Sulfonamide Antibiotics) Allergy (Unknown, Verified 10/11/11 15:54) Unknown - Home Medications Home Medications: Cholecalciferol Vit D3 [Vitamin D3 2000 units (OTC)] 5,000 units PO DAILY [Last Taken 05/24/13] Irbesartan [Avapro 150 mg (RX)] 300 mg PO DAILY 05/21/13 [Last Taken 05/24/13 09 :00] Meclizine HCl [Meclizine HCl 25 mg (RX,OTC)] 25 mg PO DAILY 05/21/13 [Last Taken 05/25/13 07:00] Vitamin B Complex [Vitamin B Complex (OTC)] 1 each PO HS 05/21/13 [Last Taken ] amLODIPine BESYLATE [Norvasc 5 mg (RX)] 2.5 mg PO DAILY 05/21/13 [Last Taken 07:00] oxyCODONE/APAP 5/325 [Percocet 5/325 (RX)] 1 tab PO BID 05/21/13 [Last Taken 07:00] Aspirin [Aspirin 81mg (*)] 81 mg PO DAILY 12/21/17 [Last Taken Unknown] Diclofenac Sodium [Diclofenac Sodium] 25 mg PO BID PRN 12/21/17 [Last Taken Unknown] Mirtazapine [Mirtazapine] 15 mg PO HS 12/21/17 [Last Taken Unknown] traMADol [Ultram 50 mg (*)] 50 mg PO BID PRN 12/21/17 [Last Taken Unknown] - NPO status NPO Status: no food or drink >8 hours - Anes Hx Anes Hx: no prior problems - Smoking Hx Smoking Status: Never smoked ANE Labs/Vital Signs - Labs Result Diagrams: 12/21/17 12:35 12/25/17 05:18 - Vital Signs Blood Pressure: 167/70 Heart Rate: 61 Respiratory Rate: 16 O2 Sat (%): 96 Height: 152.4 cm Weight: 49.895 kg ANE Physical Exam - Airway Neck exam: FROM Mallampati Score: Class 2 Mouth exam: dentures - Pulmonary Pulmonary: no respiratory distress, no rales or rhonchi, clear to auscultation - Cardiovascular Cardiovascular: regular rate and rhythym, no murmur, rub, or gallop - ASA Status ASA Status: III ANE Anesthesia Plan Anesthesia Plan: GA with mask
[2017-12-25] MEDS ORDERED: NALOXONE HCL 0.4 MG/ML INJ IVP PRN (10:57)
[2017-12-25] MEDS ORDERED: ONDANSETRON 4 MG/2 ML VIAL IVP PRN (10:57)
[2017-12-25] MEDS ORDERED: DEXAMETHASONE 4 MG/ML VIAL IVP PRN (10:57)
[2017-12-25] MEDS ORDERED: fentaNYL 100 MCG/2 ML INJ IVP PRN (10:57)
--- NOTE | 2017-12-25 10:57 | POSTANESTH ---
Post Anesthetic Evaluation Cardiovascular Status: Normal, Stable Respiratory Status: Normal, Stable, Similar to Pre-op Cond. Level of Consciousness/Mental Status: Can Participate in Eval, Moderately Sleepy Pain Control: Adequate, Prn Tx Ordered Nausea/Vomiting Control: Adequate, Prn Tx Ordered Complications Possibly Related to Anesthesia: None Noted
--- NOTE | 2017-12-25 11:56 | ECHO ---
[email or web address] [address] [address] Main: [phone] Fax: Transesophageal Echocardiography Name: WERO RODRIGUEZ MR#: [id number] Study Date: 12/25/2017 Study Time: 10:25 AM Date of : 1940 Age: 77 year(s) Height: ( ) Weight: ( ) BSA: Gender: Female Examination: JEFRY Indication: Eval for source of emboli Image Quality: Contrast: Requested by: Radha Bunch Heart Rate: Rhythm: BP: / Procedure Staff [facility] Representative: Cristina Thomas RDCS Reading Physician: Emmanuel Canela MD Requesting Provider: JEFRY Exam Details Conclusions: No pericardial effusion. No source of embolus identified with no left atrial appendage thrombus. No atheroma within the aorta. No evidence of [id number]-tuuw shunt by saline injection. Measurements: Chambers Valvular Assessment AV/MV Valvular Assessment TV/PV Normal Normal Normal Name Value Range Name Value Range Name Value Range Additional Measurements: Findings: Left Ventricle: Normal global systolic LV function. Left Atrium: An agitated saline study was performed and was negative for intracardiac shunting. Left Atrial Appendage: No thrombus in left appendage. Mitral Valve: Mild mitral valve regurgitation is present. Aortic Valve: The aortic valve is tri-leaflet. Moderate aortic valve regurgitation is present. Patient: WERO RODRIGUEZ Study Date: 12/25/2017 Page 1 of 2 10:25 AM l1n (No Signature Object) Patient: WERO RODRIGUEZ Study Date: 12/25/2017 Page 2 of 2 10:25 AM [id number]
--- NOTE | 2017-12-25 12:41 | ASMTCMCOM ---
CM Note CM Note Notes: [facility] inpatient rehab eval in progress; TBD is pt qualifies and if there is bed availability. Date Signed: 12/25/2017 12:40 PM Electronically Signed By:AMADOU Burton
[2017-12-25] MEDS: ATORVASTATIN CALCIUM 40 MG TAB PO SCH (13:29)
[2017-12-25] MEDS: CLOPIDOGREL BISULFATE 75 MG TAB PO SCH (13:29)
[2017-12-25] MEDS: ENOXAPARIN 40 MG/0.4 ML SYR SC SCH (13:29)
[2017-12-26] MEDS: CLOPIDOGREL BISULFATE 75 MG TAB PO SCH (08:38)
[2017-12-26] MEDS: ATORVASTATIN CALCIUM 40 MG TAB PO SCH (08:39)
[2017-12-26] MEDS: ENOXAPARIN 40 MG/0.4 ML SYR SC SCH (08:39)
--- NOTE | 2017-12-26 13:00 | HOSPPROG ---
Hospitalist Progress Note Assessment/Plan: Melany is a 77 y/o non speaking female who presented to the ER with weakness and falls. 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 -appreciate Dr Zambrano -Plavix, statin, permissive hypertension in the setting of a stroke -echo shows no thrombus -previous CT imaging did not show evidence of a large vessel stroke -therapies to see her -JEFRY shows no thrombus, loop recorder in place *gait instability with multiple falls -due to the above *FTT -eating well today *urinary frequency -will check ua & cx if indicated *chronic back pain on chronic continuous pain meds -on tramadol and oxy -will do a trial of scheduled Tylenol -she denies pain when I evaluated her *HTN, allow for permissive -in the setting *DVT prophylaxis: LMWH *Plan : needs f/u with Dr Zambrano and with Dr Canela Subjective: Melany is asking to go to the bathroom frequently. NO other complaints. Objective: Vital Signs Temp Pulse Resp BP Pulse Ox 37.1 C 62 22 H 182/75 H 96 12/26/17 11:41 12/26/17 11:41 12/26/17 11:41 12/26/17 11:41 12/26/17 11:41 Laboratory Results 12/25/17 05:18 12/25/17 12/26/17 12/27/17 05:59 05:59 05:59 Intake Total 1200 Output Total 200 300 Balance 1000 -300 PT 13.6 SEC (12.0-15.0) 12/25/17 05:18 INR 1.02 (0.83-1.16) 12/25/17 05:18 - Physical Exam Constitutional: no apparent distress Eyes: PERRL Ears, Nose, Mouth, Throat: hearing normal Cardiovascular: regular rate and rhythym Respiratory: no respiratory distress Gastrointestinal: normoactive bowel sounds Skin: warm Musculoskeletal: generalized weakness Neurologic: other (alert) Psychiatric: interacting appropriately ICD10 Worksheet Patient Problems: Problems Problem Status Onset Diarrhea Acute Pre-syncope Acute Primary osteoarthritis of left knee Acute Primary osteoarthritis of one knee Acute
--- NOTE | 2017-12-26 13:55 | PDIAF ---
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 - Medication Management Discharge Medications: Medications to Continue on Transfer Cholecalciferol Vit D3 [Vitamin D3 2000 units] 5,000 units PO DAILY 05/21/13 [ Last Taken 05/24/13] Irbesartan [Avapro 150 mg (*)] 300 mg PO DAILY 05/21/13 [Last Taken 05/24/13 09: 00] Vitamin B Complex [Vitamin B Complex (OTC)] 1 each PO HS 05/21/13 [Last Taken ] amLODIPine BESYLATE [Norvasc 5 mg (*)] 2.5 mg PO DAILY 05/21/13 [Last Taken 07:00] Mirtazapine 15 mg PO HS 12/21/17 [Last Taken Unknown] traMADol [Ultram 50 mg (*)] 50 mg PO BID PRN 12/21/17 [Last Taken Unknown] Acetaminophen [Tylenol 325mg (*)] 650 mg PO Q4HRS PRN tab 12/26/17 [Last Taken Unknown] Atorvastatin Calcium [Lipitor 40 mg (*)] 40 mg PO DAILY tab 12/26/17 [Last Taken Unknown] Clopidogrel Bisulfate [Plavix (*)] 75 mg PO DAILY tab 12/26/17 [Last Taken Unknown] Discharge Medications: Refer to the Discharge Home Medication list for PRN reason. - Orders Services needed: Physical Therapy, Occupational Therapy, Speech Language Pathologist Diet Recommendation: no restrictions on diet Diet Texture: Dysphagia 1 - Pureed, Thin Liquids, Meds Whole in Puree Additional Instructions: iman from JEFRY out in one week follow up w Dr Canela in regards to information on Linq monitor -to r/o any atrial fibrillation new medication is Plavix and Lipitor follow up with Dr Alex Zambrano allow for permissive hypertension with goal of 140/90, ok to start after discharge today follow up with urinalysis done at hospital today, had increased frequency w urination meclizine, Percocet and diclofenac all discontinued during this hospital stay - Follow Up Care Current Providers and Referrals: Alex Zambrano DO [Medical Doctor] - Patient,NotPresent [Unknown] - As per Instructions Emmanuel Canela MD [Medical Doctor] - Haven Nolan NP [Certified Nurse Practioner] - (1 week post linq implant check/ staple removal. [facility] in [facility] on 01/01/18 at 11:30)
--- NOTE | 2017-12-26 14:28 | ASMTCMCOM ---
CM Note CM Note Notes: Pt medically stable for d/c to [facility] inpatient rehabilitation. Orders to be obtained via [email or web address]. [facility] Medicaid wc transport scheduled for 16:30, pt son in law Franny notified. JAROD Jurado to call report. Date Signed: 12/26/2017 02:27 PM Electronically Signed By:AMADOU Burton
--- NOTE | 2017-12-26 14:29 | GDS ---
[f rep st] DISCHARGE SUMMARY DISCHARGE DIAGNOSES: 1. 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 2. Gait instability, multiple falls. 3. Failure to thrive. 4. Urinary frequency and urgency. 5. Chronic pain, on chronic continuous pain medications. 6. Hypertension. CONSULTATIONS: 1. Dr. Alex Zambrano. 2. WILFRIDO Benson. HISTORY: Briefly, the patient is a 77-year-old female with a history of hypertension and chronic back pain. She was admitted for recurrent falls. On her day of admission, she had multiple falls and a bout of diarrhea. She was admitted for basically failure to thrive. She had a head/neck CT performed, which was negative. After further evaluation by Physical Therapy, they were concerned she was listing to the left with ambulation. She had a brain MRI and was noted to have an acute infarct in the left occipital lobe, left thalamus, and left posterior cerebral artery. She was seen and evaluated by Dr. Zambrano. Since she failed aspirin therapy, she was started on Plavix. An echocardiogram did not show any embolic source, so she had a JEFRY performed by Dr. Canela. This also did not note an embolic source. A LINQ monitor was placed yesterday to further evaluate for atrial fibrillation. She will be discharged to inpatient rehab on statin therapy and Plavix and further followup with both Dr. Zambrano and Dr. Canela. HOSPITAL COURSE: 1. Acute left occipital infarct, likely embolic. Her previous CT imaging did not show evidence of a large vessel stroke. Have allowed for permissive hypertension in the setting of a stroke. Will continue Plavix, statin therapy, and continue therapies in the inpatient setting. 2. Gait instability with multiple falls. I suspect this is secondary from the stroke. 3. Failure to thrive. She is eating very well at the hospital. 4. Urinary frequency. Will check a urinalysis and culture, and ask for inpatient rehab to follow up with these labs. 5. Chronic back pain, on continuous opioid pain medications. I have continued tramadol and have stopped the Percocet because it likely clouds her neurologic exam. She has done well without it. 6. Hypertension. Have allowed permissive in the setting of a stroke. Reviewed her care with Neurology. Okay to resume her blood pressure medications at discharge. DISCHARGE CONDITION: Stable. Blood pressure is 172/74, heart rate of 59, respiratory rate 15, O2 sats on room air 95%. Temperature is 37.2 Celsius. DISCHARGE MEDICATIONS: Please see the EMR. DISCHARGE INSTRUCTIONS: 1. She needs to get her iman from her procedure out in 1 week. 2. Follow up with Dr. Canela in regard to information from LINQ monitor to rule out any atrial fibrillation. 3. Continue Plavix and Lipitor. 4. Follow up with Dr. Zambrano. 5. Have allowed for permissive hypertension during her stay now with a goal of 140/90. 6. Follow up with urinalysis done here at the hospital. 7. Meclizine and Percocet have been discontinued because of recent stroke, and she has done well without them. Greater than 30 minutes discharging her and coordinating her care. Copy requested to: Dr. Hilton Zambrano /[id number]/MODL MTDD
[2017-12-26] MEDS ORDERED: amLODIPine BESYLATE 5 MG TAB PO SCH (16:45)
[2017-12-26 16:46] VITALS: BP 170/80
== END 2017-12-26 17:03 | DRG 42 ==
LOC: EDUNIT# → OBSVTOIN 14:11 → INTOOBSV 14:11 → UNDOADMOB 14:11 → F3E 15:06 → F3N 12-23 22:30 → F3E 12-23 22:30 → OBSVTOIN 12-23 22:30 → F3E 12-23 22:50 → F3N 12-23 22:50
PROVIDERS: ADMIT Internal Medicine; ATTEND Internal Medicine
PROC: B246ZZ4 Ultrasonography of Right and Left Heart, Transesophageal (ICD-10-PCS; principal; 2017-12-25)
PROC: 0JH60PZ Insertion of Cardiac Rhythm Related Device into Chest Subcutaneous Tissue and Fascia, Open Approach (ICD-10-PCS; principal; 2017-12-25)
DX: I63.40 Cerebral infarction due to embolism of unspecified cerebral artery (principal); R62.7 Adult failure to thrive; R26.89 Other abnormalities of gait and mobility; R35.0 Frequency of micturition; G89.29 Other chronic pain; I10 Essential (primary) hypertension; Z91.81 History of falling
CPT/HCPCS: 82947-QW; 92523-GN; 92526-GN; 92610-GN; 97116-GP; 97162-GP; 97166-GO; 97168-GO; 97530-GO; 97530-GP; 97535-GO; C1764; G0378; G8978-GP-CL; G8979-GP-CJ; G8987-GO-CK; G8987-GO-CL; G8988-GO-CJ; G8996-GN-CI; G8996-GN-CJ; G8997-GN-CI; G8997-GN-CJ; G8998-GN-CI; G8998-GN-CJ; G9168-GN-CL; G9169-GN-CL; G9170-GN-CL; J1650; J2704; Q9967

== ENCOUNTER 2017-12-26 11:23 | Inpatient (IN) | payer OTHER, MEDICAID ==
[2017-12-26] MEDS ORDERED: traMADol 50 MG TAB PO PRN (18:09)
[2017-12-26] MEDS ORDERED: ACETAMINOPHEN 325 MG TAB PO PRN (18:09)
[2017-12-26] MEDS ORDERED: NON-FORMULARY NEW DRUG (Mirtazapine [Mirtazapine] 15 MG) PO SCH (21:00)
[2017-12-26] MEDS: MIRTAZAPINE 15 MG TAB PO SCH (21:27)
[2017-12-26] MEDS: VITAMIN B COMPLEX 1 EA CAP/TAB PO SCH (21:28)
[2017-12-27 08:25] LABS: PLATELET COUNT 244 10^3/uL (150-400)
[2017-12-27] MEDS ORDERED: amLODIPine BESYLATE 5 MG TAB PO SCH (09:00)
[2017-12-27] MEDS: ENOXAPARIN 40 MG/0.4 ML SYR SC SCH (09:16)
[2017-12-27] MEDS: CLOPIDOGREL BISULFATE 75 MG TAB PO SCH (09:16)
[2017-12-27] MEDS: CHOLECALCIFEROL VIT D3 1,000 UNITS TAB PO SCH (09:17)
[2017-12-27] MEDS: ATORVASTATIN CALCIUM 40 MG TAB PO SCH (09:17)
[2017-12-27] MEDS ORDERED: PROTOCOL POTASSIUM 1 DOSE MISC PRN (11:04)
[2017-12-27] MEDS: IRBESARTAN 150 MG TAB PO SCH (12:13)
--- NOTE | 2017-12-27 13:22 | GHP ---
[f rep st] HISTORY AND PHYSICAL POST ADMISSION PHYSICIAN EVALUATION AND REHABILITATION TREATMENT PLAN DATE OF ADMISSION: 12/26/2017 DATE OF EVALUATION: 12/27/2017. TIME OF EVALUATION: 0900. IMPAIRMENT GROUP: 1.2-right body involvement (left brain). DATE OF ONSET: 12/21/2017. DATE OF ADMISSION: 12/26/2017-the patient was admitted by Dr. Domingo, but no history and physical was performed at that time. REFERRING PHYSICIAN: [facility]. REFERRING PHYSICIAN: Dr. Hill. CONSULTING PHYSICIANS: Neurology. REHAB DIAGNOSES: Cerebrovascular accident, left occipital lobe. ETIOLOGIC DIAGNOSIS: Left brain, right body involvement. HISTORY OF PRESENT ILLNESS: A 77-year-old female who was admitted to [facility] on 12/21/2017 following multiple falls and diarrhea. The patient also had reportedly sustained some weakness and altered gait along with pocketing of her food. MRI of the brain was performed and obtained and showed left occipital cerebrovascular accident. It is unclear at this time whether these were acute or chronic changes. JEFRY was performed and did not show an embolic source. The patient is now admitted to the inpatient rehabilitation unit with deficits to ADLs, mobility and cognitive deficits. No family members were available during this evaluation to supplement the patient's history. Apparently, the patient was functioning on a somewhat independent level prior to hospital admission, however, there is a possible history of dementia. LABORATORY STUDIES: WBC 7.0, hemoglobin 11.5. Hematocrit 33.9. Sodium 141, potassium 3.1, BUN 11, creatinine 0.7, glucose 86. An MRI of brain without contrast from 12/23, showed acute infarct left occipital lobe and left thalamus , left posterior cerebral artery territory without hemorrhage or mass effect. Mild cerebral atrophy. Multiple nonspecific hyperintense T2/FLAIR signal abnormalities in white matter of bilateral cerebral hemispheres. Neck CTA from 12/21/2017 showed that the major vessels of the [place] were adequately displayed, no evidence of aneurysm, vascular malformation, flow- limiting stenosis, or occlusion. Bilateral cavernous internal carotid arteries and vertebrobasilar system demonstrates no evidence of flow-limiting stenosis, aneurysm, occlusion or dissection. PRECAUTIONS: Safety/fall precautions. Recent history of falls. Decreased balance. Cognitive impairment. Swallowing precautions until further assessed by Speech Therapy. ACTIVE COMORBID CONDITIONS: Hypertension. PAST MEDICAL HISTORY: Hypertension. Hypercholesterolemia. Vitamin B12 deficiency. Possible dementia. PAST SURGICAL HISTORY: Unknown at this time. ADMISSION MEDICATIONS: Tylenol 650 q.4 hours. Amlodipine 2.5 mg p.o. daily. Lipitor 40 mg p.o. daily. Cholecalciferol 500 units p.o. daily. Plavix 75 mg p.o. daily. Lovenox 40 mg subcu daily. Avapro 300 mg p.o. daily. Remeron 15 mg p.o. HS. Tramadol 50 mg p.o. twice daily p.r.n. pain. ALLERGIES: She is allergic to sulfa. PSYCHOSOCIAL HISTORY: Deferred until family members available. FAMILY HISTORY: Unknown. REVIEW OF SYSTEMS: HEENT: She denies dizziness or diplopia. NEUROLOGICAL: Denies headache or visual disturbance. CARDIAC: Denies chest pain. RESPIRATORY : Denies shortness of breath. GENITOURINARY: Denies dysuria. The remainder of multi-system review of systems were negative. PHYSICAL EXAM: VITALS: Blood pressure 189/81, pulse 71, respiratory rate 18 and nonlabored. Temperature 36.6 degrees. She is on room air. Current weight : Pending. GENERAL: Lean, elderly, pleasant female in no acute distress. Cooperative during physical exam. Appears to follow verbal commands. Difficult to assess for aphasia secondary to language barrier and possibly some degree of baseline dementia. HEENT: EOMI, PERRLA. Appears to track across all visual de leon, there may be some right-sided neglect as patient had difficulty scanning to right visual de leon PA. DENTITION: Dentures are in place and appear to be fitting well. NECK: Supple. HEART: Regular rate and rhythm, no murmurs, rubs, or gallops. LUNGS: Clear to auscultation. ABDOMEN: Soft, nontender. Normoactive bowel sounds all 4 quadrants. : No catheter in place. No suprapubic tenderness. EXTREMITIES: No upper or lower extremity edema. No right or left calf tenderness, erythema or swelling. Normal upper extremity and vascular exam. NEUROLOGICAL: She has active functional range of motion right and left glenohumeral joints, elbows, wrists, hips, knees, and ankles. She may have a little bit of weakness on the left with possible left pronator drift. Motor testing revealed functional strength of proximal, intermediate, and distal muscle groups of both upper and lower extremities. Did not appreciate a facial droop. Cranial nerves 2-12 appear to be grossly intact. Sensation intact all dermatomes both upper and lower extremities, although this was somewhat difficult to completely assess due to patient's language barrier. I did not assess whether she could go from sit to stand at this time. CURRENT LEVEL OF FUNCTION: She is on a dysphagia 1 diet. She needs contact guard with verbal cuing for grooming. Moderate assistance for bathing. Current toileting-she is currently incontinent and needs contact guard for toileting. Bed mobility, min assist. Transfers, contact guard to minimal assist. Current equipment FWW. Balance, standing: Contact guard to minimal assist with verbal cuing. Endurance is fair. Gait, minimal assist x30 feet with FWW. The patient noted to drift to left. Communication: Patient speaks Kinyarwanda. Family has been declining discharge coordinator services. No family members were available during this evaluation. Social interaction: Cognition, moderate to severe in judgment, memory, orientation, and problem-solving. IMPRESSION/PLAN: 1. Debility-secondary to recent left occipital and thalamic cerebrovascular accident, ischemic. Physical and Occupational Therapy to address lower and upper extremity strength deficits, coordinate efforts to address core weakness/ postural dysfunction. Gait training with FWW. Assess for balance and proprioceptive deficits. 2. Aphasia-discussed her case with Speech Therapy. Unsure as to the exact extent of expressive and receptive aphasia due to language barrier and possible underlying dementia. It is this examiner's opinion that the patient may very likely have an expressive aphasia. 3. Hypertension-she is currently on Norvasc 2.5 q.day and Avapro 300 daily. Because of her recently elevated blood pressures at 191/78 and 189/81. Will have pharmacy give an extra dose of 2.5 mg Norvasc this afternoon and increasing to 5 mg daily beginning tomorrow. Continue Avapro. 4. Dyslipidemia-continue Lipitor 40 mg p.o. daily. Dietitian consult- appreciate input regarding dietary intake needs, possible low fat diet. 5. DVT prophylaxis. Lovenox 40 mg subcu daily. 6. Stroke prevention-continue Plavix 75 mg daily. 7. Pain management. Tylenol 650 p.o. q.4 hours p.r.n. pain. Tramadol 50 mg p.o. twice daily p.r.n. pain. Nursing-please assess patient's pain level q.shift. 8. Hypokalemia. Current potassium level is low at 3.1. Therefore, will implement hypokalemia protocol. Patient to receive hypokalemia protocol 40 mEq today and repeat potassium level in the morning. /[id number]/MODL MTDD
[2017-12-27] MEDS ORDERED: POTASSIUM CL 10 MEQ TAB PO ONE (21:30)
[2017-12-27] MEDS: VITAMIN B COMPLEX 1 EA CAP/TAB PO SCH (21:37)
[2017-12-27] MEDS: MIRTAZAPINE 15 MG TAB PO SCH (21:37)
[2017-12-28] MEDS: amLODIPine BESYLATE 5 MG TAB PO SCH (08:31)
[2017-12-28] MEDS: CHOLECALCIFEROL VIT D3 1,000 UNITS TAB PO SCH (08:35)
[2017-12-28] MEDS: ATORVASTATIN CALCIUM 40 MG TAB PO SCH (08:35)
[2017-12-28] MEDS: CLOPIDOGREL BISULFATE 75 MG TAB PO SCH (08:36)
[2017-12-28] MEDS: IRBESARTAN 150 MG TAB PO SCH (08:38)
--- NOTE | 2017-12-28 08:46 | SOAPPROG ---
SOAP Progress Note Assessment/Plan: Assessment: 1. Debility-secondary to recent left occipital and thalamic cerebrovascular accident, ischemic. Physical and Occupational Therapy to address lower and upper extremity strength deficits, coordinate efforts to address core weakness/ postural dysfunction. Gait training with FWW. Assess for balance and proprioceptive deficits. 2. Aphasia-discussed her case with Speech Therapy. Unsure as to the exact extent of expressive and receptive aphasia due to language barrier and possible underlying dementia. It is this examiner's opinion that the patient may very likely have an expressive aphasia. 3. Hypertension-BP THIS AM W143/78. she is currently on Norvasc 2.5 q.day and Avapro 300 daily. YESTERDAY SHE RECEIVED AN EXTRA 2.5 MG OF NORVASC FOR BLOOD PRESSURE IS ELEVATED AT 191/78 and 189/81. BEGINNING TODAY, WILL RECEIVE NORVASC 5 POINT MG DAILY. Continue Avapro. 4. Dyslipidemia-continue Lipitor 40 mg p.o. daily. Dietitian consult- appreciate input regarding dietary intake needs, possible low fat diet. 5. DVT prophylaxis. Lovenox 40 mg subcu daily. 6. Stroke prevention-continue Plavix 75 mg daily. 7. Pain management. NO COMPLAINTS OF PAIN PER PATIENT OR REHAB STAFF Tylenol 650 p.o. q.4 hours p.r.n. pain. Tramadol 50 mg p.o. twice daily p.r.n. pain. Nursing-please assess patient's pain level q.shift. 8. Hypokalemia. YESTERDAY SHE WAS STARTED ON POTASSIUM REPLACEMENT PROTOCOL FOR POTASSIUM LEVEL OF 3.1. REPEAT POTASSIUM LEVEL YESTERDAY WAS 3.7 AND SHE RECEIVED 10 MEQ. WILL CHECK POTASSIUM TODAY AND IF NORMAL TREND CONTINUES THEN WILL DISCONTINUE POTASSIUM PROTOCOL. 9. CONSTIPATION-WILL ORDERS FOR MIRALAX DAILY AND SENOKOT 1-2 P.R.N.. 12/28/17 08:36 Subjective: NO COMPLAINTS PER PATIENT. NURSING INDICATES PATIENT IS PERSEVERATING ON CONSTIPATION. Objective: Vital Signs Temp Pulse Resp BP Pulse Ox 37.0 C 68 17 143/78 H 95 12/28/17 07:42 12/28/17 07:42 12/28/17 07:42 12/28/17 07:42 12/28/17 07:42 Laboratory Results 12/27/17 06:00 12/27/17 18:00 12/27/17 12/28/17 12/29/17 05:59 05:59 05:59 Intake Total 240 700 Output Total 500 300 Balance -260 400 Physical Exam - Physical Exam General Appearance: WD/WN, no apparent distress Neck: supple Respiratory: lungs clear, normal breath sounds Cardiac/Chest: No edema Abdomen: normal bowel sounds, non-tender, soft Skin: normal color, warm/dry Neuro/Psych: motor weakness, cognition abnormalities, speech abnormalities ICD10 Worksheet Patient Problems: Problems Problem Status Onset Diarrhea Acute Pre-syncope Acute Primary osteoarthritis of left knee Acute Primary osteoarthritis of one knee Acute
[2017-12-28] MEDS: SENNOSIDES 1 TAB PO SCH ×2 (08:58→20:38)
[2017-12-28] MEDS: POLYETHYLENE GLYCOL 3350 17 GM PKT PO SCH (08:58)
[2017-12-28] MEDS: ENOXAPARIN 40 MG/0.4 ML SYR SC SCH (08:58)
[2017-12-28] MEDS ORDERED: POTASSIUM CL 10 MEQ TAB PO ONE (13:54)
[2017-12-28] MEDS: VITAMIN B COMPLEX 1 EA CAP/TAB PO SCH (20:38)
[2017-12-28] MEDS: MIRTAZAPINE 15 MG TAB PO SCH (20:38)
[2017-12-29] MEDS: POLYETHYLENE GLYCOL 3350 17 GM PKT PO SCH (08:32)
[2017-12-29] MEDS: amLODIPine BESYLATE 5 MG TAB PO SCH (08:33)
[2017-12-29] MEDS: ATORVASTATIN CALCIUM 40 MG TAB PO SCH (08:33)
[2017-12-29] MEDS: SENNOSIDES 1 TAB PO SCH ×2 (08:34→20:01)
[2017-12-29] MEDS: CLOPIDOGREL BISULFATE 75 MG TAB PO SCH (08:34)
[2017-12-29] MEDS: CHOLECALCIFEROL VIT D3 1,000 UNITS TAB PO SCH (08:34)
[2017-12-29] MEDS: IRBESARTAN 150 MG TAB PO SCH (08:35)
[2017-12-29] MEDS: ENOXAPARIN 40 MG/0.4 ML SYR SC SCH (08:49)
--- NOTE | 2017-12-29 13:55 | SOAPPROG ---
SOAP Progress Note Assessment/Plan: Assessment: Debility-secondary to recent left occipital and thalamic cerebrovascular accident, ischemic. * Has walked 50 ft, standby assist to minimal assist, with front wheeled walker. * Continue Physical and Occupational Therapy to address lower and upper extremity strength deficits, coordinate efforts to address core weakness/ postural dysfunction. Gait training with FWW. Assess for balance and proprioceptive deficits. Aphasia. * Unsure as to the exact extent of expressive and receptive aphasia due to language barrier and possible underlying dementia. 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 Hypertension. Blood pressure is improved but still not at target. Appears to be higher in the morning then later in the day but none of days to establish a pattern. * Continue amlodipine 5 mg q.day and irbesartan 300 mg per day. Dyslipidemia-continue atorvastatin 40 mg p.o. daily. Dietitian consult- appreciate input regarding dietary intake needs, possible low fat diet. Stroke prevention-continue Plavix 75 mg daily. Pain management. Continue Tylenol 650 p.o. q.4 hours p.r.n. pain. Tramadol 50 mg p.o. twice daily p.r.n. pain. * Has not been using pain medication. Hypokalemia. Resolved. Magnesium normal. Discontinue potassium protocol 2017. Constipation. Continue polyethylene glycol and senna/docusate. DVT prophylaxis. Lovenox 40 mg subcu daily. FOLLOW-UP: Neurology, Dr. Zambrano; cardiology, Dr. Canela or nurse practitioner Angelica Nolan. Cardiology scheduled for 01/01/2018 for staple removal; this can likely be done while on inpatient rehabilitation without a trip to the ruling machine set up operator's office. 12/29/17 13:32 Objective: Vital Signs Temp Pulse Resp BP Pulse Ox 36.7 C 68 17 159/76 H 99 12/29/17 05:45 12/29/17 08:30 12/29/17 05:45 12/29/17 08:30 12/29/17 08:30 Laboratory Results 12/27/17 06:00 12/28/17 10:19 12/28/17 12/29/17 12/30/17 05:59 05:59 05:59 Intake Total 700 2995 643 Output Total 300 7385 450 Balance 400 70 193 Physical Exam - Physical Exam General Appearance: WD/WN, alert, no apparent distress, other (Sleepy) Respiratory: normal breath sounds, No crackles, No rhonchi, No wheezing Cardiac/Chest: regular rate, rhythm, other (Distant heart sounds), No edema, No diastolic murmur, No systolic murmur Skin: normal color, warm/dry, other (Left chest pacemaker pocket incision clean dry and intact, 1 staple present. Minimal serous drainage on bandage.) Neuro/Psych: alert, normal mood/affect ICD10 Worksheet Patient Problems: Problems Problem Status Onset Diarrhea Acute Pre-syncope Acute Primary osteoarthritis of left knee Acute Primary osteoarthritis of one knee Acute
--- NOTE | 2017-12-29 13:57 | PDOREHIP ---
Admission [facility] - Admission - 3 Day Assessment Period Admission Date/Day 1: 12/26/17 Day 2: 12/27/17 Day 3: 12/28/17 - Active Diagnoses Comorbidities and Co-existing Conditions at Admission: 45891. None of the Above - Skin Conditions Unhealed Pressure Ulcer (1 or more/Stage 1 or >)-Admission: 0. No
[2017-12-29] MEDS: VITAMIN B COMPLEX 1 EA CAP/TAB PO SCH (20:01)
[2017-12-29] MEDS: MIRTAZAPINE 15 MG TAB PO SCH (20:01)
[2017-12-30] MEDS: ATORVASTATIN CALCIUM 40 MG TAB PO SCH (08:02)
[2017-12-30] MEDS: CLOPIDOGREL BISULFATE 75 MG TAB PO SCH (08:03)
[2017-12-30] MEDS: amLODIPine BESYLATE 5 MG TAB PO SCH (08:04)
[2017-12-30] MEDS: SENNOSIDES 1 TAB PO SCH ×2 (08:05→20:59)
[2017-12-30] MEDS: CHOLECALCIFEROL VIT D3 1,000 UNITS TAB PO SCH (08:11)
[2017-12-30] MEDS: POLYETHYLENE GLYCOL 3350 17 GM PKT PO SCH (08:15)
[2017-12-30] MEDS: IRBESARTAN 150 MG TAB PO SCH (08:16)
[2017-12-30] MEDS: ENOXAPARIN 40 MG/0.4 ML SYR SC SCH (09:10)
--- NOTE | 2017-12-30 14:29 | SOAPPROG ---
SOAP Progress Note Assessment/Plan: Assessment: Debility-secondary to recent left occipital and thalamic cerebrovascular accident, ischemic. * Initial functional independence measure 67 on 12/30/2017. Was doing better on 12/29/2017; increased somnolence 12/30/2017. * Minimal assist for bed mobility. Has right hemineglect. Transfers using front wheeled walker with minimal assist, cuing and structure. Ambulated 50 ft with minimal assist and cuing. Collided with objects on the right. Upper body dressing setup/supervision, lower body setup/minimal assist. Grooming and hygiene with supervision. Toileting with minimal assist. * With somnolence today, 12/30/2017, requires moderate to maximal assist for ADLs. * Continue Physical and Occupational Therapy to address lower and upper extremity strength deficits, coordinate efforts to address core weakness/ postural dysfunction. Gait training with FWW. Assess for balance and proprioceptive deficits. Aphasia/cognitive impairment. * Verified with son that [place] language is Tajik. * Unsure as to the exact extent of expressive and receptive aphasia due to language barrier and possible underlying dementia. * CHANCERY CLERK notes moderate to severe decreased memory, attention, safety awareness, and orientation. * Continue CHANCERY CLERK. Dysphagia. DD 1 texture, thin liquids. Requires one-to-one supervision. Hypertension. Blood pressure is improved but still not at target. Appears to be higher in the morning then later in the day but none of days to establish a pattern. * Continue amlodipine 5 mg q.day and irbesartan 300 mg per day. Dyslipidemia-continue atorvastatin 40 mg p.o. daily. Dietitian consult- appreciate input regarding dietary intake needs, possible low fat diet. Stroke prevention/recovery. * Continue Plavix 75 mg daily, atorvastatin and blood pressure control. * Initiate fluoxetine for neuro-recovery 10 mg q.day starting 12/31/2017. Titrate to 20 mg if she tolerates lower dose. History of depression? * Mirtazapine discussed with pharmacy. Prescribed prior to acute hospital admission and picked up from outside pharmacy on 12/10/2017. Was not receiving mirtazapine during her acute hospitalization 12/23 to 12/26/2017. Mirtazapine was resumed with discharge orders from hospital to inpatient rehab on 12/26/2017. * Discontinue mirtazapine 12/30/2017 due to sedation. Initiate fluoxetine 2017. Question of UTI. Had positive urinalysis on 12/26/2017 but no culture was performed and she has not received treatment. * Difficult to ascertain regarding symptoms due to her sedation and language barrier as well as possible aphasia, but she has urinary incontinence and frequency. * Recheck urinalysis. If positive will get culture. Consider treatment if culture positive but will try to get more history first. Has not had fevers or elevated white blood cell count. * Scheduled toileting and bladder scanning per rehabilitation bladder program due to urinary frequency and urinary incontinence. Pain management. Continue Tylenol 650 p.o. q.4 hours p.r.n. pain. Tramadol 50 mg p.o. twice daily p.r.n. pain. * Has not been using pain medication. Hypokalemia. Resolved. Magnesium normal. Discontinue potassium protocol 2017. Constipation. Continue polyethylene glycol and senna/docusate. DVT prophylaxis. Lovenox 40 mg subcu daily. FOLLOW-UP: Neurology, Dr. Zambrano; cardiology, Dr. Canela or nurse practitioner Angelica Nolan. Cardiology scheduled for 01/01/2018 for staple removal; this can likely be done while on inpatient rehabilitation without a trip to the production broaching machine operator's office. DISPOSITION: Attended staffing, 15 min. Discussed with case management, dietitian, nursing, PT, OT, CHANCERY CLERK. She can return home with family, but family will be unable to provide physical assistance so she will have to be independent with mobility and ADLs. Unclear at present whether this is a reasonable goal or whether she would need discharge to SNF. Set discharge date for 01/13/2018. 12/30/17 14:31 Subjective: Very sleepy today. Overall without complaints. Has had urinary incontinence. Objective: Vital Signs Temp Pulse Resp BP Pulse Ox 37.4 C 69 18 141/72 H 94 12/30/17 05:22 12/30/17 05:22 12/30/17 05:22 12/30/17 08:16 12/30/17 05:22 Laboratory Results 12/27/17 06:00 12/28/17 10:19 12/29/17 12/30/17 12/31/17 05:59 05:59 05:59 Intake Total 4219 962 240 Output Total 7042 2148 010 Balance 70 -187 -710 - Time Spent With Patient Time Spent With Patient: Greater than 35 min floor time today, including more than 50% of time in coordination of care during staffing meeting, and counseling patient's son. Physical Exam - Physical Exam General Appearance: WD/WN, no apparent distress, other (Sleepy. Awakens to verbal and tactile stimulation and then returns to sleep.) Respiratory: normal breath sounds, No crackles, No rhonchi, No wheezing Cardiac/Chest: regular rate, rhythm, systolic murmur, No edema, No extra beats Skin: normal color, warm/dry Neuro/Psych: normal mood/affect, other (Once awakened, able to arise from supine to seated with contact guard to minimal assist. Has leftward lean.), No abnormal hide grader II-XII ICD10 Worksheet Patient Problems: Problems Problem Status Onset Diarrhea Acute Pre-syncope Acute Primary osteoarthritis of left knee Acute Primary osteoarthritis of one knee Acute
[2017-12-30] MEDS: VITAMIN B COMPLEX 1 EA CAP/TAB PO SCH (20:59)
[2017-12-31] MEDS: CHOLECALCIFEROL VIT D3 1,000 UNITS TAB PO SCH (08:30)
[2017-12-31] MEDS: CLOPIDOGREL BISULFATE 75 MG TAB PO SCH (08:30)
[2017-12-31] MEDS: IRBESARTAN 150 MG TAB PO SCH (08:30)
[2017-12-31] MEDS: ATORVASTATIN CALCIUM 40 MG TAB PO SCH (08:31)
[2017-12-31] MEDS: FLUoxetine 10 MG CAP PO SCH (08:31)
[2017-12-31] MEDS: SENNOSIDES 1 TAB PO SCH ×2 (08:31→20:14)
[2017-12-31] MEDS: POLYETHYLENE GLYCOL 3350 17 GM PKT PO SCH (08:31)
[2017-12-31] MEDS: amLODIPine BESYLATE 5 MG TAB PO SCH (08:31)
[2017-12-31] MEDS: ENOXAPARIN 40 MG/0.4 ML SYR SC SCH (08:32)
[2017-12-31] MEDS ORDERED: amLODIPine BESYLATE 5 MG TAB PO ONE (09:30)
--- NOTE | 2017-12-31 09:53 | SOAPPROG ---
SOAP Progress Note Assessment/Plan: Assessment: Debility-secondary to recent left occipital and thalamic cerebrovascular accident, ischemic. * Initial functional independence measure 67 on 12/30/2017. Was doing better on 12/29/2017; increased somnolence 12/30/2017. * Minimal assist for bed mobility. Has right hemineglect. Transfers using front wheeled walker with minimal assist, cuing and structure. Ambulated 50 ft with minimal assist and cuing. Collided with objects on the right. Upper body dressing setup/supervision, lower body setup/minimal assist. Grooming and hygiene with supervision. Toileting with minimal assist. * With somnolence, 12/30/2017, requires moderate to maximal assist for ADLs. Improved alertness 12/31/2017 after discontinuation of mirtazapine. * Continue Physical and Occupational Therapy to address lower and upper extremity strength deficits, coordinate efforts to address core weakness/ postural dysfunction. Gait training with FWW. Assess for balance and proprioceptive deficits. Aphasia/cognitive impairment. * Verified with son that [place] language is [place]ian. * Unsure as to the exact extent of expressive and receptive aphasia due to language barrier and possible underlying dementia. * TUBER MACHINE OPERATOR notes moderate to severe decreased memory, attention, safety awareness, and orientation. * Continue TUBER MACHINE OPERATOR. Dysphagia. DD 1 texture, thin liquids. Requires one-to-one supervision. Hypertension. Blood pressure is improved but still not at target. Appears to be higher in the morning then later in the day but none of days to establish a pattern. * Increase amlodipine from 5 mg q.day to 10 mg q.day starting 01/01/2018. Continue irbesartan 300 mg per day. Dyslipidemia-continue atorvastatin 40 mg p.o. daily. Dietitian consult- appreciate input regarding dietary intake needs, possible low fat diet. Stroke prevention/recovery. * Continue Plavix 75 mg daily, atorvastatin and blood pressure control. * Initiate fluoxetine for neuro-recovery 10 mg q.day starting 12/31/2017. Titrate to 20 mg if she tolerates lower dose. History of depression? * Mirtazapine discussed with pharmacy. Prescribed prior to acute hospital admission and picked up from outside pharmacy on 12/10/2017. Was not receiving mirtazapine during her acute hospitalization 12/23 to 12/26/2017. Mirtazapine was resumed with discharge orders from hospital to inpatient rehab on 12/26/2017. * Discontinue mirtazapine 12/30/2017 due to sedation. Initiate fluoxetine 2017. Question of UTI. Had positive urinalysis on 12/26/2017 but no culture was performed and she has not received treatment. * UA positive for possible UTI. Await culture. She denies symptoms so not clear that any antibiotic treatment would be indicated. * Scheduled toileting and bladder scanning per rehabilitation bladder program due to urinary frequency and urinary incontinence. Pain management. Continue Tylenol 650 p.o. q.4 hours p.r.n. pain. Tramadol 50 mg p.o. twice daily p.r.n. pain. * Has not been using pain medication. Hypokalemia. Resolved. Magnesium normal. Discontinue potassium protocol 2017. Constipation. Continue polyethylene glycol and senna/docusate. DVT prophylaxis. Lovenox 40 mg subcu daily. FOLLOW-UP: Neurology, Dr. Zambrano; cardiology, Dr. Canela or nurse practitioner Angelica Nolan. Cardiology scheduled for 01/01/2018 for staple removal; this can likely be done while on inpatient rehabilitation without a trip to the post anesthesia care unit nurse's office. DISPOSITION: She can return home with family, but family will be unable to provide physical assistance so she will have to be independent with mobility and ADLs. Unclear at present whether this is a reasonable goal or whether she would need discharge to SNF. Set discharge date for 01/13/2018. 12/31/17 09:49 Subjective: Initially reports poor sleep last night but on further questioning reports that she attained sleep at night and not wake up until the morning. Not in pain. No cough or dyspnea, no fevers or chills. Denies urinary symptoms including no dysuria and no urinary frequency. Objective: Vital Signs Temp Pulse Resp BP Pulse Ox 36.7 C 60 20 156/98 H 96 12/31/17 06:09 12/31/17 06:09 12/31/17 06:09 12/31/17 08:31 12/31/17 06:09 Laboratory Results 12/27/17 06:00 12/28/17 10:19 12/30/17 12/31/17 01/01/18 05:59 05:59 05:59 Intake Total 863 680 270 Output Total 1050 1950 100 Balance -187 -1270 170 Physical Exam - Physical Exam General Appearance: WD/WN, alert, no apparent distress Respiratory: normal breath sounds, No crackles, No rhonchi, No wheezing Cardiac/Chest: regular rate, rhythm, systolic murmur Skin: normal color, warm/dry Neuro/Psych: alert, normal mood/affect (Seated in wheelchair leaning to the left. OT reports symmetrical use of upper extremities.), other (Left hemineglect noted in card sorting task with OT.) ICD10 Worksheet Patient Problems: Problems Problem Status Onset Diarrhea Acute Pre-syncope Acute Primary osteoarthritis of left knee Acute Primary osteoarthritis of one knee Acute
[2017-12-31] MEDS: VITAMIN B COMPLEX 1 EA CAP/TAB PO SCH (20:14)
[2018-01-01] MEDS: CLOPIDOGREL BISULFATE 75 MG TAB PO SCH (09:27)
[2018-01-01] MEDS: ATORVASTATIN CALCIUM 40 MG TAB PO SCH (09:27)
[2018-01-01] MEDS: CHOLECALCIFEROL VIT D3 1,000 UNITS TAB PO SCH (09:27)
[2018-01-01] MEDS: FLUoxetine 10 MG CAP PO SCH (09:27)
[2018-01-01] MEDS: POLYETHYLENE GLYCOL 3350 17 GM PKT PO SCH (09:27)
[2018-01-01] MEDS: ENOXAPARIN 40 MG/0.4 ML SYR SC SCH (09:28)
[2018-01-01] MEDS: IRBESARTAN 150 MG TAB PO SCH (09:32)
[2018-01-01] MEDS: amLODIPine BESYLATE 5 MG TAB PO SCH (09:32)
[2018-01-01] MEDS: SENNOSIDES 1 TAB PO SCH ×2 (09:38→22:19)
--- NOTE | 2018-01-01 11:52 | SOAPPROG ---
SOAP Progress Note Assessment/Plan: Assessment: Tachypnea, chills, fatigue, 01/01/2018. Evaluate with stat CBC, procalcitonin, chest x-ray. Possibly due to UTI with Escherichia coli growing in urine culture. Debility-secondary to recent left occipital and thalamic cerebrovascular accident, ischemic. * Initial functional independence measure 67 on 12/30/2017. Was doing better on 12/29/2017; increased somnolence 12/30/2017. * Minimal assist for bed mobility. Has right hemineglect. Transfers using front wheeled walker with minimal assist, cuing and structure. Ambulated 50 ft with minimal assist and cuing. Collided with objects on the right. Upper body dressing setup/supervision, lower body setup/minimal assist. Grooming and hygiene with supervision. Toileting with minimal assist. * With somnolence, 12/30/2017, requires moderate to maximal assist for ADLs. Improved alertness 12/31/2017 after discontinuation of mirtazapine. * Continue Physical and Occupational Therapy to address lower and upper extremity strength deficits, coordinate efforts to address core weakness/ postural dysfunction. Gait training with FWW. Assess for balance and proprioceptive deficits. Aphasia/cognitive impairment. * Verified with son that [place] language is Pashto. * Unsure as to the exact extent of expressive and receptive aphasia due to language barrier and possible underlying dementia. * SANITATION WORKER HOSING MACHINERY notes moderate to severe decreased memory, attention, safety awareness, and orientation. * Continue SANITATION WORKER HOSING MACHINERY. Somnolence/apathy. * Seemed improved on 12/31/2017 after discontinuation of mirtazapine * Infectious workup today 01/01/2018. * Consider initiation of stimulant. Question of UTI. Had positive urinalysis on 12/26/2017 but no culture was performed and she has not received treatment. * UA positive for possible UTI. Await culture. She denies symptoms so not clear that any antibiotic treatment would be indicated. Low procalcitonin consistent with low probability of bacterial infection. However nurses note urinary frequency. * Scheduled toileting and bladder scanning per rehabilitation bladder program due to urinary frequency and urinary incontinence. Dysphagia. DD 1 texture, thin liquids. Requires one-to-one supervision. Hypertension. Blood pressure is improved but still not at target. Appears to be higher in the morning then later in the day but to few days to establish a pattern. * Increase amlodipine from 5 mg q.day to 10 mg q.day starting 01/01/2018. Continue irbesartan 300 mg per day. Dyslipidemia-continue atorvastatin 40 mg p.o. daily. Dietitian consult- appreciate input regarding dietary intake needs, possible low fat diet. Stroke prevention/recovery. * Continue Plavix 75 mg daily, atorvastatin and blood pressure control. * Initiate fluoxetine for neuro-recovery 10 mg q.day starting 12/31/2017. Titrate to 20 mg if she tolerates lower dose. History of depression? * Mirtazapine discussed with pharmacy. Prescribed prior to acute hospital admission and picked up from outside pharmacy on 12/10/2017. Was not receiving mirtazapine during her acute hospitalization 12/23 to 12/26/2017. Mirtazapine was resumed with discharge orders from hospital to inpatient rehab on 12/26/2017. * Discontinue mirtazapine 12/30/2017 due to sedation. Initiate fluoxetine 2017. Pain management. Continue Tylenol 650 p.o. q.4 hours p.r.n. pain. Tramadol 50 mg p.o. twice daily p.r.n. pain. * Has not been using pain medication. Hypokalemia. Resolved. Magnesium normal. Discontinue potassium protocol 2017. Constipation. Continue polyethylene glycol and senna/docusate. DVT prophylaxis. Lovenox 40 mg subcu daily. FOLLOW-UP: Neurology, Dr. Zambrano; cardiology, Dr. Canela or nurse practitioner Angelica Nolan. Cardiology scheduled for 01/01/2018 for staple removal; this can likely be done while on inpatient rehabilitation without a trip to the helminthologist's office. DISPOSITION: She can return home with family, but family will be unable to provide physical assistance so she will have to be independent with mobility and ADLs. Unclear at present whether this is a reasonable goal or whether she would need discharge to SNF. Set discharge date for 01/13/2018. 01/01/18 15:11 Subjective: Sleepy after breakfast and went back to bed. Feels cold. Says she slept well overnight. Objective: Vital Signs Temp Pulse Resp BP Pulse Ox 36.3 C 64 18 152/83 H 93 01/01/18 06:25 01/01/18 09:28 01/01/18 06:25 01/01/18 09:32 01/01/18 06:25 Laboratory Results 12/27/17 06:00 12/28/17 10:19 12/31/17 01/01/18 01/02/18 05:59 05:59 05:59 Intake Total 680 1335 120 Output Total 1950 7193 650 Balance -5499 -165 -203 Physical Exam - Physical Exam General Appearance: WD/WN, alert, no apparent distress Respiratory: crackles (Left lower lobe), other (Tachypneic), No rhonchi, No wheezing Cardiac/Chest: regular rate, rhythm, systolic murmur, No edema Skin: normal color, other (Abrasion right naqvi, inverted Y shape, approximately 5 cm vertical by 3 cm horizontal, granulation tissue at base, no erythema or purulence.) Neuro/Psych: alert, normal mood/affect, other (Able to arise to seated from supine independently. Has leftward lean.) ICD10 Worksheet Patient Problems: Problems Problem Status Onset Diarrhea Acute Pre-syncope Acute Primary osteoarthritis of left knee Acute Primary osteoarthritis of one knee Acute
[2018-01-01 13:31] LABS: PLATELET COUNT 294 10^3/uL (150-400)
[2018-01-01] MEDS: VITAMIN B COMPLEX 1 EA CAP/TAB PO SCH (22:19)
[2018-01-02] MEDS: ATORVASTATIN CALCIUM 40 MG TAB PO SCH (07:59)
[2018-01-02] MEDS: IRBESARTAN 150 MG TAB PO SCH (07:59)
[2018-01-02] MEDS: CLOPIDOGREL BISULFATE 75 MG TAB PO SCH (08:01)
[2018-01-02] MEDS: amLODIPine BESYLATE 5 MG TAB PO SCH (08:02)
[2018-01-02] MEDS: SENNOSIDES 1 TAB PO SCH ×2 (08:03→21:57)
[2018-01-02] MEDS: FLUoxetine 10 MG CAP PO SCH (08:04)
[2018-01-02] MEDS: CHOLECALCIFEROL VIT D3 1,000 UNITS TAB PO SCH (08:05)
[2018-01-02] MEDS: ENOXAPARIN 40 MG/0.4 ML SYR SC SCH (08:07)
[2018-01-02] MEDS: POLYETHYLENE GLYCOL 3350 17 GM PKT PO SCH (08:07)
[2018-01-02] MEDS ORDERED: HYDROCHLOROTHIAZIDE 12.5 MG CAP PO SCH (09:15)
[2018-01-02] MEDS: HYDROCHLOROTHIAZIDE 25 MG TAB PO SCH (10:21)
[2018-01-02] MEDS: CIPROFLOXACIN 250 MG TAB PO SCH ×2 (10:22→19:35)
--- NOTE | 2018-01-02 12:00 | SOAPPROG ---
SOAP Progress Note Assessment/Plan: Assessment: Debility-secondary to recent left occipital and thalamic cerebrovascular accident, ischemic. * Initial functional independence measure 67 on 12/30/2017. Was doing better on 12/29/2017; increased somnolence 12/30/2017. * Minimal assist for bed mobility. Has right hemineglect. Transfers using front wheeled walker with minimal assist, cuing and structure. Ambulated 50 ft with minimal assist and cuing. Collided with objects on the right. Upper body dressing setup/supervision, lower body setup/minimal assist. Grooming and hygiene with supervision. Toileting with minimal assist. * With somnolence, 12/30/2017, requires moderate to maximal assist for ADLs. Improved alertness 12/31/2017 after discontinuation of mirtazapine. * Continue Physical and Occupational Therapy to address lower and upper extremity strength deficits, coordinate efforts to address core weakness/ postural dysfunction. Gait training with FWW. Assess for balance and proprioceptive deficits. Aphasia/cognitive impairment. * Verified with son that [place] language is [place]. * Unsure as to the exact extent of expressive and receptive aphasia due to language barrier and possible underlying dementia. * PLANT ETIOLOGIST notes moderate to severe decreased memory, attention, safety awareness, and orientation. * Continue PLANT ETIOLOGIST. Somnolence/apathy. * Seemed improved on 12/31/2017 after discontinuation of mirtazapine * Infectious workup today 01/01/2018. * Consider initiation of stimulant. Question of UTI. Had positive urinalysis on 12/26/2017 but no culture was performed and she has not received treatment. * UA positive for possible UTI. Await culture. She denies symptoms so not clear that any antibiotic treatment would be indicated. Low procalcitonin consistent with low probability of bacterial infection. However nurses note urinary frequency. * Scheduled toileting and bladder scanning per rehabilitation bladder program due to urinary frequency and urinary incontinence. Dysphagia. DD 1 texture, thin liquids. Requires one-to-one supervision. Hypertension. Blood pressure is improved but still not at target. Appears to be higher in the morning then later in the day but to few days to establish a pattern. * Increase amlodipine from 5 mg q.day to 10 mg q.day starting 01/01/2018. Continue irbesartan 300 mg per day. Dyslipidemia-continue atorvastatin 40 mg p.o. daily. Dietitian consult- appreciate input regarding dietary intake needs, possible low fat diet. Stroke prevention/recovery. * Continue Plavix 75 mg daily, atorvastatin and blood pressure control. * Initiate fluoxetine for neuro-recovery 10 mg q.day starting 12/31/2017. Titrate to 20 mg if she tolerates lower dose. History of depression? * Mirtazapine discussed with pharmacy. Prescribed prior to acute hospital admission and picked up from outside pharmacy on 12/10/2017. Was not receiving mirtazapine during her acute hospitalization 12/23 to 12/26/2017. Mirtazapine was resumed with discharge orders from hospital to inpatient rehab on 12/26/2017. * Discontinue mirtazapine 12/30/2017 due to sedation. Initiate fluoxetine 2017. Pain management. Continue Tylenol 650 p.o. q.4 hours p.r.n. pain. Tramadol 50 mg p.o. twice daily p.r.n. pain. * Has not been using pain medication. Hypokalemia. Resolved. Magnesium normal. Discontinue potassium protocol 2017. Constipation. Continue polyethylene glycol and senna/docusate. DVT prophylaxis. Lovenox 40 mg subcu daily. FOLLOW-UP: Neurology, Dr. Zambrano; cardiology, Dr. Canela or nurse practitioner Angelica Nolan. Cardiology scheduled for 01/01/2018 for staple removal; this can likely be done while on inpatient rehabilitation without a trip to the fuel injection servicer's office. DISPOSITION: She can return home with family, but family will be unable to provide physical assistance so she will have to be independent with mobility and ADLs. Unclear at present whether this is a reasonable goal or whether she would need discharge to SNF. Set discharge date for 01/13/2018. 01/02/18 11:57 Subjective: Complains of dizziness. Says she feels like her head is spinning. She reports that this is a chronic condition but it is more intense right now. She does not feel that it is affecting her balance and says that she is ready to do physical therapy. Sleeping well, but also sleepy during the day. Objective: Vital Signs Temp Pulse Resp BP Pulse Ox 37.1 C 59 L 18 151/73 H 93 01/02/18 06:07 01/02/18 06:07 01/02/18 06:07 01/02/18 08:02 01/02/18 06:07 Microbiology 12/30/17 22:15 Urine Culture - Final Urine,Clean Catch Escherichia Coli Laboratory Results 01/01/18 12:38 12/28/17 10:19 01/01/18 01/02/18 01/03/18 05:59 05:59 05:59 Intake Total 1335 530 240 Output Total 1500 1650 550 Balance -364 -7797 -961 Physical Exam - Physical Exam General Appearance: WD/WN, alert, no apparent distress Respiratory: normal breath sounds, No crackles, No rhonchi, No wheezing Cardiac/Chest: regular rate, rhythm, edema (Trace bilateral ankles), systolic murmur Skin: normal color, warm/dry Neuro/Psych: alert, normal mood/affect, abnormal gait (Able to arise from seated with no assistance. Ambulates with front wheeled walker and contact guard assist per PT, short steps, slightly wide based, step-through on the left leg and step-to pattern on the right leg.) ICD10 Worksheet Patient Problems: Problems Problem Status Onset Diarrhea Acute Pre-syncope Acute Primary osteoarthritis of left knee Acute Primary osteoarthritis of one knee Acute
[2018-01-02] MEDS ORDERED: PHENAZOPYRIDINE HCL 100 MG TAB PO SCH (19:00)
[2018-01-02] MEDS: PHENAZOPYRIDINE HCL 200 MG TAB PO SCH (19:34)
[2018-01-02] MEDS: VITAMIN B COMPLEX 1 EA CAP/TAB PO SCH (21:57)
[2018-01-03] MEDS: amLODIPine BESYLATE 5 MG TAB PO SCH (08:45)
[2018-01-03] MEDS: CHOLECALCIFEROL VIT D3 1,000 UNITS TAB PO SCH (08:46)
[2018-01-03] MEDS: ATORVASTATIN CALCIUM 40 MG TAB PO SCH (08:46)
[2018-01-03] MEDS: CLOPIDOGREL BISULFATE 75 MG TAB PO SCH (08:48)
[2018-01-03] MEDS: CIPROFLOXACIN 250 MG TAB PO SCH ×2 (08:48→21:13)
[2018-01-03] MEDS: ENOXAPARIN 40 MG/0.4 ML SYR SC SCH (08:49)
[2018-01-03] MEDS: FLUoxetine 10 MG CAP PO SCH (08:50)
[2018-01-03] MEDS: HYDROCHLOROTHIAZIDE 25 MG TAB PO SCH (08:50)
[2018-01-03] MEDS: PHENAZOPYRIDINE HCL 200 MG TAB PO SCH ×3 (08:51→18:25)
[2018-01-03] MEDS: IRBESARTAN 150 MG TAB PO SCH (08:51)
[2018-01-03] MEDS: POLYETHYLENE GLYCOL 3350 17 GM PKT PO SCH (08:54)
[2018-01-03] MEDS: SENNOSIDES 1 TAB PO SCH ×2 (08:54→21:14)
--- NOTE | 2018-01-03 15:48 | SOAPPROG ---
SOAP Progress Note Assessment/Plan: 77-year-old woman status post left occipital and thalamic stroke, ischemic, found on 12/21/2017 following multiple falls. Today's update: Patient has a very flat affect and seem somewhat disengaged. Doing setup to contact guard assist for most of her ADL activities. No concerns from staff today. Ordering electrolytes for tomorrow morning given the recent addition of hydrochlorothiazide and setting of recent hypokalemia. Continue to monitor closely. This is a new patient to me, all medical issues are new was well. Patient's blood pressure is well controlled today. Additional issues that were reviewed and unchanged include somnolence and apathy , question of urinary tract infection, dysphagia, dyslipidemia, secondary stroke prevention, history of depression, pain management, constipation, DVT prophylaxis. Discharge expected 01/13/2018 01/03/18 15:44 Subjective: Chief complaint: Rehab progress No acute events overnight. Patient had a somewhat flat affect and answered questions mostly with single word answers. Feels that therapy is going well, seems to be making progress with no concerns from staff. Patient denies any new shortness of breath or chest pain, no new numbness, tingling, or weakness. Objective: Vital Signs Temp Pulse Resp BP Pulse Ox 36.7 C 61 16 118/58 L 97 01/03/18 08:00 01/03/18 08:00 01/03/18 08:00 01/03/18 08:51 01/03/18 08:00 Laboratory Results 01/01/18 12:38 12/28/17 10:19 01/02/18 01/03/18 01/04/18 05:59 05:59 05:59 Intake Total 530 1310 540 Output Total 1650 1300 575 Balance -1120 10 -35 Physical Exam - Physical Exam General Appearance: WD/WN, alert, no apparent distress EENT: No scleral icterus (R), No scleral icterus (L) Respiratory: normal breath sounds, No respiratory distress, No accessory muscle use Cardiac/Chest: normal peripheral pulses, regular rate, rhythm, No edema Skin: normal color, warm/dry, No cyanosis, No diaphoresis Extremities: No pedal edema, No calf tenderness, No swelling, No Rios's sign Neuro/Psych: alert, oriented x 3, No normal mood/affect (Flat affect) ICD10 Worksheet Patient Problems: Problems Problem Status Onset Diarrhea Acute Pre-syncope Acute Primary osteoarthritis of left knee Acute Primary osteoarthritis of one knee Acute
[2018-01-03] MEDS: VITAMIN B COMPLEX 1 EA CAP/TAB PO SCH (21:13)
[2018-01-04] MEDS: CHOLECALCIFEROL VIT D3 1,000 UNITS TAB PO SCH (08:23)
[2018-01-04] MEDS: CLOPIDOGREL BISULFATE 75 MG TAB PO SCH (08:23)
[2018-01-04] MEDS: POLYETHYLENE GLYCOL 3350 17 GM PKT PO SCH (08:25)
[2018-01-04] MEDS: ATORVASTATIN CALCIUM 40 MG TAB PO SCH (08:25)
[2018-01-04] MEDS: HYDROCHLOROTHIAZIDE 25 MG TAB PO SCH (08:26)
[2018-01-04] MEDS: amLODIPine BESYLATE 5 MG TAB PO SCH (08:27)
[2018-01-04] MEDS: FLUoxetine 10 MG CAP PO SCH (08:27)
[2018-01-04] MEDS: PHENAZOPYRIDINE HCL 200 MG TAB PO SCH ×3 (08:27→18:09)
[2018-01-04] MEDS: IRBESARTAN 150 MG TAB PO SCH (08:28)
[2018-01-04] MEDS: SENNOSIDES 1 TAB PO SCH ×2 (08:29→18:56)
[2018-01-04] MEDS: ENOXAPARIN 40 MG/0.4 ML SYR SC SCH (08:29)
[2018-01-04] MEDS: CIPROFLOXACIN 250 MG TAB PO SCH ×3 (09:53→20:25)
--- NOTE | 2018-01-04 11:40 | SOAPPROG ---
SOAP Progress Note Assessment/Plan: 77-year-old woman status post left occipital and thalamic stroke, ischemic, found on 12/21/2017 following multiple falls. Today's update: Potassium in the low normal range, rechecking tomorrow. Continue ciprofloxacin that she is almost continued her 3 day course, E coli susceptible to fluoroquinolones. Urinary retention is a bit more confounding problem for her, trying alpha noe to see if it might help with bladder outlet obstruction. Urinary retention in females is a different differential diagnosis than men, watch closely for response and continue frequent voiding and bladder scans. May need urology follow-up as an outpatient. Otherwise reportedly participating in therapies, no other issues interfering with therapy besides frequent urination. Additional issues that were reviewed and unchanged include somnolence and apathy , dysphagia, dyslipidemia, secondary stroke prevention, history of depression, pain management, constipation, DVT prophylaxis. Discharge expected 01/13/2018 01/03/18 15:44 01/04/18 11:34 Subjective: Chief complaint urinary frequency No acute events overnight. Patient denies any new shortness of breath or chest pain, no new numbness, tingling, or weakness. She has had urinary frequency, elevated postvoid residual based on bladder scans and a clean intermittent catheterization. She feels that this is a relatively new problem. She endorses that her mood is good though her affect is extremely flat. Reports that she feels that therapy is going well. Objective: Vital Signs Temp Pulse Resp BP Pulse Ox 36.7 C 67 16 122/86 H 92 01/04/18 05:19 01/04/18 10:06 01/04/18 05:19 01/04/18 10:06 01/04/18 05:19 Laboratory Results 01/01/18 12:38 01/04/18 05:30 01/03/18 01/04/18 01/05/18 05:59 05:59 05:59 Intake Total 1310 690 120 Output Total 1300 2576 200 Balance Physical Exam - Physical Exam General Appearance: WD/WN, alert, no apparent distress EENT: No scleral icterus (R), No scleral icterus (L) Respiratory: No respiratory distress, No accessory muscle use Cardiac/Chest: normal peripheral pulses, regular rate, rhythm, No edema Skin: normal color, warm/dry, No cyanosis, No diaphoresis Extremities: No pedal edema, No calf tenderness, No swelling, No Rios's sign Neuro/Psych: alert, No normal mood/affect (Normal mood but very flat affect) ICD10 Worksheet Patient Problems: Problems Problem Status Onset Diarrhea Acute Pre-syncope Acute Primary osteoarthritis of left knee Acute Primary osteoarthritis of one knee Acute
[2018-01-04] MEDS: TAMSULOSIN HCL 0.4 MG CAP PO SCH (12:01)
[2018-01-04] MEDS: VITAMIN B COMPLEX 1 EA CAP/TAB PO SCH (20:25)
[2018-01-05] MEDS: CHOLECALCIFEROL VIT D3 1,000 UNITS TAB PO SCH (08:45)
[2018-01-05] MEDS: POLYETHYLENE GLYCOL 3350 17 GM PKT PO SCH (08:45)
[2018-01-05] MEDS: CLOPIDOGREL BISULFATE 75 MG TAB PO SCH (08:45)
[2018-01-05] MEDS: PHENAZOPYRIDINE HCL 200 MG TAB PO SCH (08:45)
[2018-01-05] MEDS: amLODIPine BESYLATE 5 MG TAB PO SCH (08:45)
[2018-01-05] MEDS: HYDROCHLOROTHIAZIDE 25 MG TAB PO SCH (08:45)
[2018-01-05] MEDS: SENNOSIDES 1 TAB PO SCH ×2 (08:46→21:39)
[2018-01-05] MEDS: TAMSULOSIN HCL 0.4 MG CAP PO SCH (08:46)
[2018-01-05] MEDS: FLUoxetine 10 MG CAP PO SCH (08:46)
[2018-01-05] MEDS: ATORVASTATIN CALCIUM 40 MG TAB PO SCH (08:46)
[2018-01-05] MEDS: IRBESARTAN 150 MG TAB PO SCH (08:47)
[2018-01-05] MEDS: ENOXAPARIN 40 MG/0.4 ML SYR SC SCH (08:47)
--- NOTE | 2018-01-05 11:23 | SOAPPROG ---
SOAP Progress Note Assessment/Plan: Assessment: Debility-secondary to recent left occipital and thalamic cerebrovascular accident, ischemic. * Initial functional independence measure 57 on 12/30/2017; declined to 50 as of 01/04/2018. Standby assist and cues for bed mobility. Difficulties with spatial orientation. Transfer requires minimal assist with front wheeled walker and cues. She can trip over her walker. She has difficulty finding the toilet and the door. Bathing and bath transfer requires minimal assist and cues. Toileting requires minimal assist and cues. Lower body dressing requires minimal to moderate assist and upper body requires standby assist to minimal assist. She needs cues for persistence, orientation and sequencing. * Continue Physical and Occupational Therapy to address lower and upper extremity strength deficits, coordinate efforts to address core weakness/ postural dysfunction. Gait training with FWW. Assess for balance and proprioceptive deficits. Aphasia/cognitive impairment. * Verified with son that [place] language is [place]. * Unsure as to the exact extent of expressive and receptive aphasia due to language barrier and possible underlying dementia. * GLASS CUTTER HAND notes moderate to severe decreased memory, attention, safety awareness, and orientation. * Continue GLASS CUTTER HAND. Somnolence/apathy. * Seemed improved on 12/31/2017 after discontinuation of mirtazapine * Infectious workup 01/01/2018 with normal CBC, BMP and chest x-ray. * Consider initiation of stimulant. Question of UTI. Had positive urinalysis on 12/26/2017 but no culture was performed and she has not received treatment. * UA 12/30/2017 positive for possible UTI. Culture with betts sensitive E coli. Now status post 3 days treatment with ciprofloxacin. Continues to have urinary frequency. * Scheduled toileting and bladder scanning per rehabilitation bladder program due to urinary frequency and urinary incontinence. Urinary retention. Postvoid residual of 394 cc today, 01/05/2018, after voiding 100 cc. Initiate bethanechol. Tamsulosin was begun yesterday, 01/04/2018. Dysphagia. DD 1 texture, thin liquids, advanced to DD 3 on 01/04/2018. Hypertension. Adequate control. * Continue amlodipine 10 mg q.day starting 01/01/2018, irbesartan 300 mg per day , and hydrochlorothiazide 12.5 mg q.day started 01/03/2018. Dyslipidemia-continue atorvastatin 40 mg p.o. daily. Dietitian consult- appreciate input regarding dietary intake needs, possible low fat diet. Stroke prevention/recovery. * Continue Plavix 75 mg daily, atorvastatin and blood pressure control. * Initiate fluoxetine for neuro-recovery 10 mg q.day starting 12/31/2017. Titrate to 20 mg if she tolerates lower dose. History of depression? * Mirtazapine discussed with pharmacy. Prescribed prior to acute hospital admission and picked up from outside pharmacy on 12/10/2017. Was not receiving mirtazapine during her acute hospitalization 12/23 to 12/26/2017. Mirtazapine was resumed with discharge orders from hospital to inpatient rehab on 12/26/2017. * Discontinue mirtazapine 12/30/2017 due to sedation. Initiate fluoxetine 2017. Pain management. Continue Tylenol 650 p.o. q.4 hours p.r.n. pain. Tramadol 50 mg p.o. twice daily p.r.n. pain. * Has not been using pain medication. Hypokalemia. Resolved. Magnesium normal. Discontinue potassium protocol 2017. Stable BMP on 01/04/2018 and 01/05/2018 while on hydrochlorothiazide. Constipation. Continue polyethylene glycol and senna/docusate. DVT prophylaxis. Lovenox 40 mg subcu daily. FOLLOW-UP: Neurology, Dr. Zambrano; cardiology, Dr. Canela or nurse practitioner Angelica Nolan. Cardiology scheduled for 01/01/2018 for staple removal; this can likely be done while on inpatient rehabilitation without a trip to the kiln labourer's office. DISPOSITION: Attended staffing, 15 min. Discussed with case management, dietitian, nursing, PT, OT, GLASS CUTTER HAND. She is not safe for independent mobility and ADLs, and has significant cognitive impairment. She has had a decline in function over the past week. Will likely discharge to [facility] facility , pending case management meeting with family. Continue goal of discharge 2017 if she is to go home, or possibly sooner if to SNF. 01/05/18 11:34 Subjective: No complaints. Sleeps well. Was napping this morning but awakened by OT. Denies cough or dyspnea. Reports that her urination is better after treatment of UTI. Nursing notes urinary retention. Objective: Vital Signs Temp Pulse Resp BP Pulse Ox 36.6 C 61 18 130/83 H 93 01/05/18 06:10 01/05/18 06:10 01/05/18 06:10 01/05/18 08:47 01/05/18 06:10 Laboratory Results 01/01/18 12:38 01/05/18 06:00 01/04/18 01/05/18 01/06/18 05:59 05:59 05:59 Intake Total 690 1120 240 Output Total 2776 1400 300 Balance -2086 -280 -60 - Time Spent With Patient Time Spent With Patient: Greater than 35 min floor time today, including more than 50% of time in coordination of care during staffing meeting, and counseling patient. Physical Exam - Physical Exam General Appearance: WD/WN, alert, no apparent distress Respiratory: normal breath sounds, No crackles, No rhonchi, No wheezing Cardiac/Chest: regular rate, rhythm, systolic murmur Skin: normal color, warm/dry Neuro/Psych: alert, normal mood/affect, motor weakness (Observed transfer from bed to wheelchair needing considerable cuing for hand placement and positioning , and assistance to make the transfer. Also impulsively began to stand before OT was ready.), other (Observed transferring with OT. Needed considerable cues for positioning and hand placement. Began to stand impulsively and needed cues to stop before she was ready.) ICD10 Worksheet Patient Problems: Problems Problem Status Onset Diarrhea Acute Pre-syncope Acute Primary osteoarthritis of left knee Acute Primary osteoarthritis of one knee Acute
[2018-01-05] MEDS: BETHANECHOL 10 MG TAB PO SCH ×3 (11:57→21:39)
[2018-01-05] MEDS: VITAMIN B COMPLEX 1 EA CAP/TAB PO SCH (21:39)
[2018-01-06] MEDS: BETHANECHOL 10 MG TAB PO SCH ×4 (06:16→20:15)
[2018-01-06] MEDS: ATORVASTATIN CALCIUM 40 MG TAB PO SCH (09:01)
[2018-01-06] MEDS: amLODIPine BESYLATE 5 MG TAB PO SCH (09:01)
[2018-01-06] MEDS: CHOLECALCIFEROL VIT D3 1,000 UNITS TAB PO SCH (09:02)
[2018-01-06] MEDS: ENOXAPARIN 40 MG/0.4 ML SYR SC SCH (09:05)
[2018-01-06] MEDS: CLOPIDOGREL BISULFATE 75 MG TAB PO SCH (09:05)
[2018-01-06] MEDS: FLUoxetine 10 MG CAP PO SCH (09:05)
[2018-01-06] MEDS: HYDROCHLOROTHIAZIDE 25 MG TAB PO SCH (09:07)
[2018-01-06] MEDS: IRBESARTAN 150 MG TAB PO SCH (09:07)
[2018-01-06] MEDS: SENNOSIDES 1 TAB PO SCH ×2 (09:08→20:17)
[2018-01-06] MEDS: TAMSULOSIN HCL 0.4 MG CAP PO SCH (09:08)
[2018-01-06] MEDS: POLYETHYLENE GLYCOL 3350 17 GM PKT PO SCH (09:11)
--- NOTE | 2018-01-06 14:40 | SOAPPROG ---
SOAP Progress Note Assessment/Plan: Assessment: Debility-secondary to recent left occipital and thalamic cerebrovascular accident, ischemic. * Initial functional independence measure 57 on 12/30/2017; declined to 50 as of 01/05/2018. Standby assist and cues for bed mobility. Difficulties with spatial orientation. Transfer requires minimal assist with front wheeled walker and cues. She can trip over her walker. She has difficulty finding the toilet and the door. Bathing and bath transfer requires minimal assist and cues. Toileting requires minimal assist and cues. Lower body dressing requires minimal to moderate assist and upper body requires standby assist to minimal assist. She needs cues for persistence, orientation and sequencing. * Continue Physical and Occupational Therapy to address lower and upper extremity strength deficits, coordinate efforts to address core weakness/ postural dysfunction. Gait training with FWW. Assess for balance and proprioceptive deficits. Aphasia/cognitive impairment. * Verified with son that [place] language is Lithuanian. * Unsure as to the exact extent of expressive and receptive aphasia due to language barrier and possible underlying dementia. * OPERATIONS AND MAINTENANCE SPECIALIST notes moderate to severe decreased memory, attention, safety awareness, and orientation. * Continue OPERATIONS AND MAINTENANCE SPECIALIST. Somnolence/apathy. Somnolence improved, participating in therapies. * Seemed improved on 12/31/2017 after discontinuation of mirtazapine * Infectious workup 01/01/2018 with normal CBC, BMP and chest x-ray. Question of UTI. Had positive urinalysis on 12/26/2017 but no culture was performed and she has not received treatment. * UA 12/30/2017 positive for possible UTI. Culture with betts sensitive E coli. Now status post 3 days treatment with ciprofloxacin. Continues to have urinary frequency. * Scheduled toileting and bladder scanning per rehabilitation bladder program due to urinary frequency and urinary incontinence. Urinary retention. Postvoid residual of 394 cc 01/05/2018, after voiding 100 cc. * Initiated bethanechol 10 mg four times daily on 01/05/2018.. Tamsulosin 0.4 mg q.day was 01/04/2018. * Increased bethanechol to 20 mg four times daily starting 01/06/2018. * Discontinued hydrochlorothiazide to start 01/07/2018. Dysphagia. DD 1 texture, thin liquids, advanced to DD 3 on 01/04/2018. Hypertension. Adequate control. * Continue amlodipine 10 mg q.day starting 01/01/2018, and irbesartan 300 mg per day. * Discontinued hydrochlorothiazide due to urinary issues. Initiate metoprolol 12.5 mg twice daily on 01/07/2018. Dyslipidemia-continue atorvastatin 40 mg p.o. daily. Dietitian consult- appreciate input regarding dietary intake needs, possible low fat diet. Stroke prevention/recovery. * Continue Plavix 75 mg daily, atorvastatin and blood pressure control. * Initiate fluoxetine for neuro-recovery 10 mg q.day starting 12/31/2017. Titrate to 20 mg starting 01/07/2018. History of depression? * Mirtazapine discussed with pharmacy. Prescribed prior to acute hospital admission and picked up from outside pharmacy on 12/10/2017. Was not receiving mirtazapine during her acute hospitalization 12/23 to 12/26/2017. Mirtazapine was resumed with discharge orders from hospital to inpatient rehab on 12/26/2017. * Discontinue mirtazapine 12/30/2017 due to sedation. Initiate fluoxetine 2017. Pain management. Continue Tylenol 650 p.o. q.4 hours p.r.n. pain. Tramadol 50 mg p.o. twice daily p.r.n. pain. * Has not been using pain medication. Hypokalemia. Resolved. Magnesium normal. Discontinue potassium protocol 2017. Stable BMP on 01/04/2018 and 01/05/2018 while on hydrochlorothiazide. Constipation. Continue polyethylene glycol and senna/docusate. DVT prophylaxis. Lovenox 40 mg subcu daily. FOLLOW-UP: Neurology, Dr. Zambrano; cardiology, Dr. Canela or nurse practitioner Angelica Nolan. Cardiology scheduled for 01/01/2018 for staple removal; this can likely be done while on inpatient rehabilitation without a trip to the wellness rn's office. DISPOSITION: She is not safe for independent mobility and ADLs, and has significant cognitive impairment. She has had a decline in function over the past week. Will likely [facility] to [facility] facility, pending case management meeting with family. Continue goal of discharge 01/13/2018 if she is to go home, or possibly sooner if to SNF. 01/06/18 14:36 Subjective: Continues to have frequent urination. Otherwise without complaints. Sleeping well. Not in pain. No cough or dyspnea, no fevers or chills. Objective: Vital Signs Temp Pulse Resp BP Pulse Ox 36.8 C 60 14 119/61 94 01/06/18 06:26 01/06/18 06:26 01/06/18 06:26 01/06/18 09:07 01/06/18 06:26 Laboratory Results 01/01/18 12:38 01/05/18 06:00 01/05/18 01/06/18 01/07/18 05:59 05:59 05:59 Intake Total 1120 880 150 Output Total 1400 1715 150 Balance -280 -835 0 Physical Exam - Physical Exam General Appearance: WD/WN, alert, no apparent distress Respiratory: normal breath sounds, No crackles, No rhonchi, No wheezing Cardiac/Chest: regular rate, rhythm, systolic murmur Skin: normal color, warm/dry Neuro/Psych: alert, normal mood/affect ICD10 Worksheet Patient Problems: Problems Problem Status Onset Diarrhea Acute Pre-syncope Acute Primary osteoarthritis of left knee Acute Primary osteoarthritis of one knee Acute
[2018-01-06] MEDS ORDERED: FLUoxetine 10 MG CAP PO ONE (14:45)
[2018-01-06] MEDS: VITAMIN B COMPLEX 1 EA CAP/TAB PO SCH (20:16)
[2018-01-06] MEDS ORDERED: METOPROLOL TARTRATE 25 MG TAB PO SCH (21:00)
[2018-01-07] MEDS: BETHANECHOL 10 MG TAB PO SCH ×4 (05:25→20:59)
[2018-01-07] MEDS: amLODIPine BESYLATE 5 MG TAB PO SCH (07:45)
[2018-01-07] MEDS: CHOLECALCIFEROL VIT D3 1,000 UNITS TAB PO SCH (07:46)
[2018-01-07] MEDS: ATORVASTATIN CALCIUM 40 MG TAB PO SCH (07:46)
[2018-01-07] MEDS: CLOPIDOGREL BISULFATE 75 MG TAB PO SCH (07:47)
[2018-01-07] MEDS: FLUoxetine 20 MG CAP PO SCH (07:47)
[2018-01-07] MEDS: ENOXAPARIN 40 MG/0.4 ML SYR SC SCH (07:47)
[2018-01-07] MEDS: IRBESARTAN 150 MG TAB PO SCH (07:47)
[2018-01-07] MEDS: TAMSULOSIN HCL 0.4 MG CAP PO SCH (07:48)
[2018-01-07] MEDS: SENNOSIDES 1 TAB PO SCH ×2 (07:48→19:14)
[2018-01-07] MEDS: METOPROLOL TARTRATE 25 MG TAB PO SCH ×2 (07:48→20:59)
[2018-01-07] MEDS: POLYETHYLENE GLYCOL 3350 17 GM PKT PO SCH (07:48)
[2018-01-07] MEDS ORDERED: FLUoxetine 10 MG CAP PO SCH (09:00)
--- NOTE | 2018-01-07 12:34 | SOAPPROG ---
SOAP Progress Note Assessment/Plan: Assessment: Debility-secondary to recent left occipital and thalamic cerebrovascular accident, ischemic. * Initial functional independence measure 57 on 12/30/2017; declined to 50 as of 01/05/2018. Standby assist and cues for bed mobility. Difficulties with spatial orientation. Transfer requires minimal assist with front wheeled walker and cues. She can trip over her walker. She has difficulty finding the toilet and the door. Bathing and bath transfer require minimal assist and cues. Toileting requires minimal assist and cues. Lower body dressing requires minimal to moderate assist and upper body requires standby assist to minimal assist. She needs cues for persistence, orientation and sequencing. * Advancing towards SBA a to CGA for mobility and ADLs as of 01/07/2018. * Continue Physical and Occupational Therapy to address lower and upper extremity strength deficits, coordinate efforts to address core weakness/ postural dysfunction. Gait training with FWW. Assess for balance and proprioceptive deficits. Aphasia/cognitive impairment. * Verified with son that [place] language is English. * Unsure as to the exact extent of expressive and receptive aphasia due to language barrier and possible underlying dementia. * FORKLIFT DRIVER notes moderate to severe decreased memory, attention, safety awareness, and orientation. * Continue FORKLIFT DRIVER. Somnolence/apathy. Somnolence improved, participating in therapies. * Seemed improved on 12/31/2017 after discontinuation of mirtazapine * Infectious workup 01/01/2018 with normal CBC, BMP and chest x-ray. Question of UTI. Had positive urinalysis on 12/26/2017 but no culture was performed and she has not received treatment. * UA 12/30/2017 positive for possible UTI. Culture with betts sensitive E coli. Now status post 3 days treatment with ciprofloxacin. Continues to have urinary frequency. * Scheduled toileting and bladder scanning per rehabilitation bladder program due to urinary frequency and urinary incontinence. Urinary retention. Postvoid residual of 394 cc 01/05/2018, after voiding 100 cc. * Initiated bethanechol 10 mg four times daily on 01/05/2018.. Tamsulosin 0.4 mg q.day was 01/04/2018. * Increased bethanechol to 20 mg four times daily starting 01/06/2018. * Discontinued hydrochlorothiazide to start 01/07/2018. Dysphagia. DD 1 texture, thin liquids, advanced to DD 3 on 01/04/2018. Hypertension. Adequate control. * Continue amlodipine 10 mg q.day starting 01/01/2018, and irbesartan 300 mg per day. * Discontinued hydrochlorothiazide due to urinary issues. Initiate metoprolol 12.5 mg twice daily on 01/07/2018. Dyslipidemia-continue atorvastatin 40 mg p.o. daily. Dietitian consult- appreciate input regarding dietary intake needs, possible low fat diet. Stroke prevention/recovery. * Continue Plavix 75 mg daily, atorvastatin and blood pressure control. * Initiate fluoxetine for neuro-recovery 10 mg q.day starting 12/31/2017. Titrate to 20 mg starting 01/07/2018. History of depression? * Mirtazapine discussed with pharmacy. Prescribed prior to acute hospital admission and picked up from outside pharmacy on 12/10/2017. Was not receiving mirtazapine during her acute hospitalization 12/23 to 12/26/2017. Mirtazapine was resumed with discharge orders from hospital to inpatient rehab on 12/26/2017. * Discontinue mirtazapine 12/30/2017 due to sedation. Initiate fluoxetine 2017. Pain management. Continue Tylenol 650 p.o. q.4 hours p.r.n. pain. Tramadol 50 mg p.o. twice daily p.r.n. pain. * Has not been using pain medication. Hypokalemia. Resolved. Magnesium normal. Discontinue potassium protocol 2017. Stable BMP on 01/04/2018 and 01/05/2018 while on hydrochlorothiazide. Constipation. Continue polyethylene glycol and senna/docusate. DVT prophylaxis. Lovenox 40 mg subcu daily. FOLLOW-UP: Neurology, Dr. Zambrano; cardiology, Dr. Canela or nurse practitioner Angelica Nolan. Cardiology scheduled for 01/01/2018 for staple removal; iman were removed on Inpatient Rehabilitation unit. DISPOSITION: She is not safe for independent mobility and ADLs, and has significant cognitive impairment. She has had a decline in function over the past week. Will likely discharge to senior living facility, pending case management meeting with family. Continue goal of discharge 01/13/2018 if she is to go home, or possibly sooner if to SNF. 01/07/18 12:29 Subjective: No complaints. Slept well. Not in pain. Reports that she did exercise this morning with PT and OT, including sitting and walking. Objective: Vital Signs Temp Pulse Resp BP Pulse Ox 36.8 C 62 18 119/60 93 01/07/18 06:24 01/07/18 07:48 01/07/18 06:24 01/07/18 07:48 01/07/18 06:24 Laboratory Results 01/01/18 12:38 01/05/18 06:00 01/06/18 01/07/18 01/08/18 05:59 05:59 05:59 Intake Total 880 800 320 Output Total 1715 1525 100 Balance -835 -725 220 Physical Exam - Physical Exam General Appearance: WD/WN, alert, no apparent distress Respiratory: normal breath sounds, No crackles, No rhonchi, No wheezing Skin: normal color, warm/dry Neuro/Psych: alert, normal mood/affect ICD10 Worksheet Patient Problems: Problems Problem Status Onset Diarrhea Acute Pre-syncope Acute Primary osteoarthritis of left knee Acute Primary osteoarthritis of one knee Acute
[2018-01-07] MEDS: VITAMIN B COMPLEX 1 EA CAP/TAB PO SCH (20:59)
[2018-01-08] MEDS: BETHANECHOL 10 MG TAB PO SCH ×4 (05:57→20:58)
[2018-01-08] MEDS: CHOLECALCIFEROL VIT D3 1,000 UNITS TAB PO SCH (09:47)
[2018-01-08] MEDS: POLYETHYLENE GLYCOL 3350 17 GM PKT PO SCH (09:47)
[2018-01-08] MEDS: ATORVASTATIN CALCIUM 40 MG TAB PO SCH (09:47)
[2018-01-08] MEDS: TAMSULOSIN HCL 0.4 MG CAP PO SCH (09:48)
[2018-01-08] MEDS: ENOXAPARIN 40 MG/0.4 ML SYR SC SCH (09:48)
[2018-01-08] MEDS: FLUoxetine 20 MG CAP PO SCH (09:48)
[2018-01-08] MEDS: CLOPIDOGREL BISULFATE 75 MG TAB PO SCH (09:48)
[2018-01-08] MEDS: SENNOSIDES 1 TAB PO SCH ×2 (09:48→20:59)
[2018-01-08] MEDS: amLODIPine BESYLATE 5 MG TAB PO SCH (09:52)
[2018-01-08] MEDS: METOPROLOL TARTRATE 25 MG TAB PO SCH ×2 (09:57→20:58)
[2018-01-08] MEDS ORDERED: TAMSULOSIN HCL 0.4 MG CAP PO ONE (09:58)
[2018-01-08] MEDS: IRBESARTAN 150 MG TAB PO SCH (10:00)
--- NOTE | 2018-01-08 10:39 | SOAPPROG ---
SOAP Progress Note Assessment/Plan: 77-year-old woman status post left occipital and thalamic stroke, ischemic, found on 12/21/2017 following multiple falls. Today's update: Having some constipation, also some urinary retention. Increasing tamsulosin to 0.8 mg daily. She will get straight catheter this morning for 400 mL in the bladder. Sending a urinalysis as well, low probability. Also adding docusate for encouragement of bowel movement as this helps her in the past. Blood pressure is well controlled. A total of 35 min was spent on the floor in the care of the patient, the majority of which was spent in counseling coordination of care regarding coordination of catheterization and counseling the patient on options for treatment. Additional issues that were reviewed and unchanged include aphasia, somnolence and apathy, dysphagia, dyslipidemia, secondary stroke prevention, history of depression, pain management, DVT prophylaxis. Discharge expected 01/13/2018 01/03/18 15:44 01/04/18 11:34 01/08/18 10:36 01/08/18 10:39 Subjective: Chief complaint: Constipation and urinary retention No acute events overnight. Patient denies any new shortness of breath or chest pain, no new numbness, tingling, or weakness. She denies any dysuria, knows that she has to pee but is unable to. Also notes that she has some constipation that is usually helped with docusate. She is okay with straight catheter if necessary. Also okay with increasing the tamsulosin. Objective: Vital Signs Temp Pulse Resp BP Pulse Ox 37.0 C 65 14 120/61 94 01/08/18 06:24 01/08/18 09:57 01/08/18 06:24 01/08/18 10:00 01/08/18 06:24 Laboratory Results 01/01/18 12:38 01/05/18 06:00 01/07/18 01/08/18 01/09/18 05:59 05:59 05:59 Intake Total 800 760 150 Output Total 1525 775 100 Balance -725 -15 50 ICD10 Worksheet Patient Problems: Problems Problem Status Onset Diarrhea Acute Pre-syncope Acute Primary osteoarthritis of left knee Acute Primary osteoarthritis of one knee Acute
[2018-01-08] MEDS: DOCUSATE SODIUM 100 MG CAP PO SCH ×2 (12:12→20:59)
[2018-01-08] MEDS: VITAMIN B COMPLEX 1 EA CAP/TAB PO SCH (20:58)
[2018-01-09] MEDS: BETHANECHOL 10 MG TAB PO SCH ×4 (05:56→20:52)
[2018-01-09] MEDS: CHOLECALCIFEROL VIT D3 1,000 UNITS TAB PO SCH (09:19)
[2018-01-09] MEDS: SENNOSIDES 1 TAB PO SCH ×2 (09:19→21:44)
[2018-01-09] MEDS: DOCUSATE SODIUM 100 MG CAP PO SCH ×2 (09:19→19:11)
[2018-01-09] MEDS: ATORVASTATIN CALCIUM 40 MG TAB PO SCH (09:20)
[2018-01-09] MEDS: TAMSULOSIN HCL 0.4 MG CAP PO SCH (09:20)
[2018-01-09] MEDS: FLUoxetine 20 MG CAP PO SCH (09:20)
[2018-01-09] MEDS: CLOPIDOGREL BISULFATE 75 MG TAB PO SCH (09:20)
[2018-01-09] MEDS: IRBESARTAN 150 MG TAB PO SCH (09:20)
[2018-01-09] MEDS: ENOXAPARIN 40 MG/0.4 ML SYR SC SCH (09:30)
[2018-01-09] MEDS: POLYETHYLENE GLYCOL 3350 17 GM PKT PO SCH (09:30)
[2018-01-09] MEDS: amLODIPine BESYLATE 5 MG TAB PO SCH ×2 (09:41→09:54)
[2018-01-09] MEDS: METOPROLOL TARTRATE 25 MG TAB PO SCH ×2 (11:35→21:44)
--- NOTE | 2018-01-09 15:03 | SOAPPROG ---
SOAP Progress Note Assessment/Plan: Assessment: Debility-secondary to recent left occipital and thalamic cerebrovascular accident, ischemic. * Initial functional independence measure 57 on 12/30/2017; declined to 50 as of 01/05/2018. Standby assist and cues for bed mobility. Difficulties with spatial orientation. Transfer requires minimal assist with front wheeled walker and cues. She can trip over her walker. She has difficulty finding the toilet and the door. Bathing and bath transfer require minimal assist and cues. Toileting requires minimal assist and cues. Lower body dressing requires minimal to moderate assist and upper body requires standby assist to minimal assist. She needs cues for persistence, orientation and sequencing. * Advancing towards SBA a to CGA for mobility and ADLs as of 01/07/2018. * Continue Physical and Occupational Therapy to address lower and upper extremity strength deficits, coordinate efforts to address core weakness/ postural dysfunction. Gait training with FWW. Assess for balance and proprioceptive deficits. Aphasia/cognitive impairment. * Verified with son that [place] language is [place]. * Unsure as to the exact extent of expressive and receptive aphasia due to language barrier and possible underlying dementia. * QUALITY CONTROL REPRESENTATIVE notes moderate to severe decreased memory, attention, safety awareness, and orientation. * Continue QUALITY CONTROL REPRESENTATIVE. Somnolence/apathy. Somnolence improved, participating in therapies. * Seemed improved on 12/31/2017 after discontinuation of mirtazapine * Infectious workup 01/01/2018 with normal CBC, BMP and chest x-ray. Question of UTI. Had positive urinalysis on 12/26/2017 but no culture was performed and she has not received treatment. * UA 12/30/2017 positive for possible UTI. Culture with betts sensitive E coli. Now status post 3 days treatment with ciprofloxacin. Continues to have urinary frequency. * Scheduled toileting and bladder scanning per rehabilitation bladder program due to urinary frequency and urinary incontinence. * Repeat urinalysis 01/08/2018 normal. Urinary retention. Postvoid residual of 394 cc 01/05/2018, after voiding 100 cc. * Initiated bethanechol 10 mg four times daily on 01/05/2018.. Tamsulosin 0.4 mg q.day was 01/04/2018. * Increased bethanechol to 20 mg four times daily starting 01/06/2018. * Tamsulosin begun 01/08/2018. * Discontinued hydrochlorothiazide to start 01/07/2018. Dysphagia. DD 1 texture, thin liquids, advanced to DD 3 on 01/04/2018, subsequently downgraded to DD 1. . Hypertension. Adequate control. * Continue amlodipine 10 mg q.day starting 01/01/2018, and irbesartan 300 mg per day. * Discontinued hydrochlorothiazide due to urinary issues. Initiated metoprolol 12.5 mg twice daily on 01/07/2018. Dyslipidemia-continue atorvastatin 40 mg p.o. daily. Stroke prevention/recovery. * Continue Plavix 75 mg daily, atorvastatin and blood pressure control. * Initiate fluoxetine for neuro-recovery 10 mg q.day starting 12/31/2017. Titrated to 20 mg starting 01/07/2018. History of depression? * Mirtazapine discussed with pharmacy. Prescribed prior to acute hospital admission and picked up from outside pharmacy on 12/10/2017. Was not receiving mirtazapine during her acute hospitalization 12/23 to 12/26/2017. Mirtazapine was resumed with discharge orders from hospital to inpatient rehab on 12/26/2017. * Discontinue mirtazapine 12/30/2017 due to sedation. Initiated fluoxetine 2017. Pain management. Continue Tylenol 650 p.o. q.4 hours p.r.n. pain. Tramadol 50 mg p.o. twice daily p.r.n. pain. * Has not been using pain medication. Hypokalemia. Resolved. Magnesium normal. Discontinue potassium protocol 2017. Stable BMP on 01/04/2018 and 01/05/2018 while on hydrochlorothiazide. Constipation. Continue polyethylene glycol and senna/docusate. DVT prophylaxis. Lovenox 40 mg subcu daily. FOLLOW-UP: Neurology, Dr. Zambrano; cardiology, Dr. Canela or nurse practitioner Angelica Nolan. Cardiology scheduled for 01/01/2018 for staple removal; iman were removed on Inpatient Rehabilitation unit. DISPOSITION: She is not safe for independent mobility and ADLs, and has significant cognitive impairment. She has had a decline in function over the past week. Will likely discharge to longterm facility, pending case management meeting with family. Continue goal of discharge 01/13/2018 if she is to go home, or possibly sooner if to SNF. 01/09/18 15:00 Subjective: No complaints. Not in pain. Denies fevers or chills, cough or dyspnea. Objective: Vital Signs Temp Pulse Resp BP Pulse Ox 36.6 C 53 L 14 117/59 L 96 01/09/18 05:40 01/09/18 05:40 01/09/18 05:40 01/09/18 09:41 01/09/18 05:40 Laboratory Results 01/01/18 12:38 01/05/18 06:00 01/08/18 01/09/18 01/10/18 05:59 05:59 05:59 Intake Total 760 910 240 Output Total 775 875 450 Balance -15 35 -210 Physical Exam - Physical Exam General Appearance: WD/WN, alert, no apparent distress Respiratory: No respiratory distress, No accessory muscle use Skin: normal color, warm/dry Neuro/Psych: alert, normal mood/affect ICD10 Worksheet Patient Problems: Problems Problem Status Onset Diarrhea Acute Pre-syncope Acute Primary osteoarthritis of left knee Acute Primary osteoarthritis of one knee Acute
[2018-01-09] MEDS: VITAMIN B COMPLEX 1 EA CAP/TAB PO SCH (20:52)
[2018-01-10] MEDS: BETHANECHOL 10 MG TAB PO SCH ×4 (06:06→20:35)
[2018-01-10] MEDS: IRBESARTAN 150 MG TAB PO SCH (08:58)
[2018-01-10] MEDS: TAMSULOSIN HCL 0.4 MG CAP PO SCH (08:58)
[2018-01-10] MEDS: FLUoxetine 20 MG CAP PO SCH (08:58)
[2018-01-10] MEDS: CHOLECALCIFEROL VIT D3 1,000 UNITS TAB PO SCH (08:59)
[2018-01-10] MEDS: DOCUSATE SODIUM 100 MG CAP PO SCH ×2 (08:59→20:35)
[2018-01-10] MEDS: amLODIPine BESYLATE 5 MG TAB PO SCH (08:59)
[2018-01-10] MEDS: CLOPIDOGREL BISULFATE 75 MG TAB PO SCH (08:59)
[2018-01-10] MEDS: ATORVASTATIN CALCIUM 40 MG TAB PO SCH (08:59)
[2018-01-10] MEDS: SENNOSIDES 1 TAB PO SCH ×2 (09:00→20:40)
[2018-01-10] MEDS: POLYETHYLENE GLYCOL 3350 17 GM PKT PO SCH (09:00)
[2018-01-10] MEDS: ENOXAPARIN 40 MG/0.4 ML SYR SC SCH (09:00)
[2018-01-10] MEDS: METOPROLOL TARTRATE 25 MG TAB PO SCH ×2 (10:24→20:40)
[2018-01-10] MEDS ORDERED: traMADol 50 MG TAB PO PRN (13:21)
--- NOTE | 2018-01-10 13:31 | HOSPPROG ---
Hospitalist Progress Note Assessment/Plan: Assessment: 77 yo F p/w occipital/thalamic CVA Plan: # Left occipital and thalamic cerebrovascular accident, ischemic. Residual deficits include aphasia/cog impairment/apathy/spatial ambulatory -cont plavix, statin/ARB # HTN. Chronic, cont on ARB/amlodipine/bblocker -if HR < 60, hold bblocker (consider DC'ing, as cassie likely to put her at risk for falls and can manage BP w/ amlodipine instead) # Somnolence/apathy. Intermittent somnolence this AM, unclear whether related to sleep, Rx, language barrier, or recent CVA -repeat CBC/CMP in AM -patient engaging w/ lunch and ambulating, no indication to repeat HCT at this time # Possible UTI. S/p 3 days of Cipro w/ repeat UA wnl -monitor for worsening urinary symptoms, fever # Urinary retention. Possibly 2/2 immobility, Tamsulosin 0.4 mg and Increased bethanechol to 20 mg four times daily starting 01/06/2018. -off HCTZ # Dysphagia. DD 1 texture, thin liquids, advanced to DD 3 on 01/04/2018, subsequently downgraded to DD 1. . # Possible depression. Chronically on mirtaz, stopped due to sedation, uptitrated prozac for neuro recovery -if somnolence persists, consider reducing prozac to 10 and gauge effect # Chronic pain management. Continue Tylenol 650 p.o. q.4 hours p.r.n. pain. Tramadol reduced to a range (25-50 mg p.o. twice daily p.r.n. pain) # Hypokalemia. Resolved. Magnesium normal. Discontinue potassium protocol . Stable BMP on 01/04/2018 and 01/05/2018 while on hydrochlorothiazide. # Constipation. Continue polyethylene glycol and senna/docusate. DVT prophylaxis. Lovenox 40 mg subcu daily. Diet. Per COMMUNITY SERVICE ORGANIZATION DIRECTOR recs Code. Full Dispo. ADD 01/13 to possible SNF. Subjective: lethargic but c/o no pain, was lethargic w/ therapy this AM, ambulating to lunch Objective: Vital Signs Temp Pulse Resp BP Pulse Ox 36.6 C 61 14 129/63 H 95 01/10/18 06:05 01/10/18 10:24 01/10/18 06:05 01/10/18 10:24 01/10/18 06:05 Laboratory Results 01/01/18 12:38 01/05/18 06:00 01/09/18 01/10/18 01/11/18 05:59 05:59 05:59 Intake Total 910 850 Output Total 875 1150 0 Balance 35 -300 0 - Physical Exam Constitutional: no apparent distress, appears nourished, not in pain, No uncomfortable Cardiovascular: regular rate and rhythym, systolic murmur (II/ at sternum), No irregularly irregular, No tachycardia, No edema Respiratory: no respiratory distress, no rales or rhonchi, clear to auscultation Gastrointestinal: normoactive bowel sounds, soft, non-tender abdomen, no palpable masses, No distension Neurologic: AAOx3 Psychiatric: not anxious, flat affect, other (lethargic but arousable), No agitated ICD10 Worksheet Patient Problems: Problems Problem Status Onset Diarrhea Acute Pre-syncope Acute Primary osteoarthritis of left knee Acute Primary osteoarthritis of one knee Acute
[2018-01-10] MEDS: VITAMIN B COMPLEX 1 EA CAP/TAB PO SCH (20:34)
[2018-01-11] MEDS: BETHANECHOL 10 MG TAB PO SCH ×4 (05:39→21:41)
[2018-01-11] MEDS: FLUoxetine 20 MG CAP PO SCH (08:00)
[2018-01-11] MEDS: amLODIPine BESYLATE 5 MG TAB PO SCH (08:02)
[2018-01-11] MEDS: METOPROLOL TARTRATE 25 MG TAB PO SCH (08:02)
[2018-01-11] MEDS: ATORVASTATIN CALCIUM 40 MG TAB PO SCH (08:09)
[2018-01-11] MEDS: CLOPIDOGREL BISULFATE 75 MG TAB PO SCH (08:09)
[2018-01-11] MEDS: IRBESARTAN 150 MG TAB PO SCH (08:10)
[2018-01-11] MEDS: DOCUSATE SODIUM 100 MG CAP PO SCH (08:12)
[2018-01-11] MEDS: CHOLECALCIFEROL VIT D3 1,000 UNITS TAB PO SCH (08:12)
[2018-01-11] MEDS: SENNOSIDES 1 TAB PO SCH (08:13)
[2018-01-11] MEDS: TAMSULOSIN HCL 0.4 MG CAP PO SCH (08:13)
[2018-01-11] MEDS: ENOXAPARIN 40 MG/0.4 ML SYR SC SCH (08:17)
[2018-01-11] MEDS: POLYETHYLENE GLYCOL 3350 17 GM PKT PO SCH (08:19)
[2018-01-11 09:06] LABS: PLATELET COUNT 228 10^3/uL (150-400)
--- NOTE | 2018-01-11 12:42 | HOSPPROG ---
Hospitalist Progress Note Assessment/Plan: Assessment: 77 yo F p/w occipital/thalamic CVA Plan: # Left occipital and thalamic cerebrovascular accident, ischemic. Residual deficits include aphasia/cog impairment/apathy/spatial ambulatory -cont plavix, statin/ARB # HTN. Chronic, cont on ARB, consider increasing dose of amlodipine to 10mg tomorrow AM if SBP consistently > 130 (today's range 110-150) -stopped bblocker as HR consistently sinus 50-60, and no absolute indication for bblocker # Somnolence/apathy. Intermittent somnolence, unclear whether related to sleep, Rx, language barrier, or recent CVA -no e/o infxn or metabolic cause on CMP/CBC -patient more engaging and oriented today, no indication for HCT # Possible UTI. S/p 3 days of Cipro w/ repeat UA wnl -monitor for worsening urinary symptoms, fever # Urinary retention. Possibly 2/2 immobility, Tamsulosin 0.4 mg and Increased bethanechol to 20 mg four times daily starting 01/06/2018. -off HCTZ # Dysphagia. DD 1 texture, thin liquids, advanced to DD 3 on 01/04/2018, subsequently downgraded to DD 1. . # Possible depression. Chronically on mirtaz, stopped due to sedation, uptitrated prozac for neuro recovery # Chronic pain management. Continue Tylenol 650 p.o. q.4 hours p.r.n. pain. Tramadol reduced to a range (25-50 mg p.o. twice daily p.r.n. pain) # Hypokalemia. Resolved # Constipation. Reduce senokot-s to 1 bid, adjust miralax to PRN DVT prophylaxis. Lovenox 40 mg subcu daily. Diet. Per HOSPICE AIDE recs Code. Full Dispo. ADD 01/13 to possible SNF. Subjective: patient more awake today, feels like she needs to move bowels/ urinate regularly Objective: Vital Signs Temp Pulse Resp BP Pulse Ox 36.3 C 53 L 16 156/69 H 91 L 01/11/18 05:46 01/11/18 08:02 01/11/18 05:46 01/11/18 08:10 01/11/18 05:46 Laboratory Results 01/11/18 06:00 01/11/18 06:00 01/10/18 01/11/18 01/12/18 05:59 05:59 05:59 Intake Total 850 780 80 Output Total 1150 280 400 Balance -300 500 -320 - Physical Exam Constitutional: no apparent distress, not in pain, other (thin appearing ), No uncomfortable Cardiovascular: systolic murmur (I/ at sternum), bradycardia, No irregularly irregular, No tachycardia, No edema Respiratory: no respiratory distress, no rales or rhonchi, clear to auscultation Gastrointestinal: normoactive bowel sounds, soft, non-tender abdomen, no palpable masses, No distension Neurologic: AAOx3, facial droop (R mouth palsy), No weakness (motor 5/5 prox bilat LE) Psychiatric: not anxious, flat affect, poor memory, No agitated ICD10 Worksheet Patient Problems: Problems Problem Status Onset Primary osteoarthritis of one knee Acute Primary osteoarthritis of left knee Acute Diarrhea Acute Pre-syncope Acute
[2018-01-11] MEDS ORDERED: POLYETHYLENE GLYCOL 3350 17 GM PKT PO PRN (12:47)
[2018-01-11] MEDS: VITAMIN B COMPLEX 1 EA CAP/TAB PO SCH (21:41)
[2018-01-11] MEDS: SENNOSIDES/DOCUSATE SODIUM TAB PO SCH (21:41)
[2018-01-12] MEDS: BETHANECHOL 10 MG TAB PO SCH ×4 (05:46→20:05)
[2018-01-12] MEDS: CLOPIDOGREL BISULFATE 75 MG TAB PO SCH (09:42)
[2018-01-12] MEDS: TAMSULOSIN HCL 0.4 MG CAP PO SCH (09:42)
[2018-01-12] MEDS: ENOXAPARIN 40 MG/0.4 ML SYR SC SCH (09:43)
[2018-01-12] MEDS: amLODIPine BESYLATE 5 MG TAB PO SCH (09:43)
[2018-01-12] MEDS: FLUoxetine 20 MG CAP PO SCH (09:43)
[2018-01-12] MEDS: ATORVASTATIN CALCIUM 40 MG TAB PO SCH (09:43)
[2018-01-12] MEDS: IRBESARTAN 150 MG TAB PO SCH (09:43)
[2018-01-12] MEDS: CHOLECALCIFEROL VIT D3 1,000 UNITS TAB PO SCH (09:43)
[2018-01-12] MEDS: SENNOSIDES/DOCUSATE SODIUM TAB PO SCH ×2 (10:44→19:40)
--- NOTE | 2018-01-12 14:39 | SOAPPROG ---
SOAP Progress Note Assessment/Plan: Assessment: Debility-secondary to recent left occipital and thalamic cerebrovascular accident, ischemic. * Initial functional independence measure 57 on 12/30/2017; declined to 50 as of 01/05/2018, and to 48 as of 01/12/2018. Standby assist to contact guard assist for bed mobility, minimal assist for transfers. Ambulated 50 ft with minimal assist. Noted to be perseverative and confused. Needs [id number] cuing to complete a task. Dresses with minimal assistance and cues. Has a right hemineglect. * Continue Physical and Occupational Therapy to address lower and upper extremity strength deficits, coordinate efforts to address core weakness/ postural dysfunction. Gait training with FWW. Assess for balance and proprioceptive deficits. Aphasia/cognitive impairment. * Verified with son that [place] language is [place]. * Unsure as to the exact extent of expressive and receptive aphasia due to language barrier and possible underlying dementia. * MINE WIRER notes moderate to severe decreased memory, attention, safety awareness, and orientation. * Continue MINE WIRER. Somnolence/apathy. Somnolence improved, participating in therapies. * Seemed improved on 12/31/2017 after discontinuation of mirtazapine * Infectious workup 01/01/2018 with normal CBC, BMP and chest x-ray. Question of UTI. Had positive urinalysis on 12/26/2017 but no culture was performed and she has not received treatment. * UA 12/30/2017 positive for possible UTI. Culture with betts sensitive E coli. Now status post 3 days treatment with ciprofloxacin. Continues to have urinary frequency. * Scheduled toileting and bladder scanning per rehabilitation bladder program due to urinary frequency and urinary incontinence. * Repeat urinalysis 01/08/2018 normal. Urinary retention. Postvoid residual of 394 cc 01/05/2018, after voiding 100 cc. * Initiated bethanechol 10 mg four times daily on 01/05/2018.. Tamsulosin 0.4 mg q.day was 01/04/2018. * Increased bethanechol to 20 mg four times daily starting 01/06/2018. * Tamsulosin begun 01/08/2018. * Discontinued hydrochlorothiazide to start 01/07/2018. Dysphagia. DD 1 texture, thin liquids, advanced to DD 3 on 01/04/2018, subsequently downgraded to DD 1. . Hypertension. Adequate control. * Continue amlodipine 10 mg q.day starting 01/01/2018, and irbesartan 300 mg per day. * Discontinued hydrochlorothiazide due to urinary issues. Initiated metoprolol 12.5 mg twice daily on 01/07/2018. Dyslipidemia-continue atorvastatin 40 mg p.o. daily. Stroke prevention/recovery. * Continue Plavix 75 mg daily, atorvastatin and blood pressure control. * Initiate fluoxetine for neuro-recovery 10 mg q.day starting 12/31/2017. Titrated to 20 mg starting 01/07/2018. History of depression? * Mirtazapine discussed with pharmacy. Prescribed prior to acute hospital admission and picked up from outside pharmacy on 12/10/2017. Was not receiving mirtazapine during her acute hospitalization 12/23 to 12/26/2017. Mirtazapine was resumed with discharge orders from hospital to inpatient rehab on 12/26/2017. * Discontinue mirtazapine 12/30/2017 due to sedation. Initiated fluoxetine 2017. Pain management. Continue Tylenol 650 p.o. q.4 hours p.r.n. pain. Tramadol 50 mg p.o. twice daily p.r.n. pain. * Has not been using pain medication. Hypokalemia. Resolved. Magnesium normal. Discontinue potassium protocol 2017. Stable BMP on 01/04/2018 and 01/05/2018 while on hydrochlorothiazide. Constipation. Continue polyethylene glycol and senna/docusate. DVT prophylaxis. Lovenox 40 mg subcu daily. FOLLOW-UP: Neurology, Dr. Zambrano; cardiology, Dr. Canela or nurse practitioner Angelica Nolan. Cardiology scheduled for 01/01/2018 for staple removal; iman were removed on Inpatient Rehabilitation unit. DISPOSITION: Attended staffing, 15 min. Discussed with case management, dietitian, nursing, PT, OT, MINE WIRER. With continued decline in function and intermittent participation in therapies she is no longer meeting criteria to remain in inpatient rehabilitation. SNF discharge to [facility] has been arranged for tomorrow, 01/13/2018. 01/12/18 14:40 Subjective: No complaints. Slept well. Speech therapy reports that she was increasingly interactive today. Objective: Vital Signs Temp Pulse Resp BP Pulse Ox 37.0 C 60 15 158/76 H 94 01/12/18 06:05 01/12/18 06:05 01/12/18 06:05 01/12/18 09:43 01/12/18 06:05 Laboratory Results 01/11/18 06:00 01/11/18 06:00 01/11/18 01/12/18 01/13/18 05:59 05:59 05:59 Intake Total 780 700 240 Output Total 280 1350 400 Balance 500 -650 -160 - Time Spent With Patient Time Spent With Patient: Greater than 35 min floor time today, including more than 50% of time in coordination of care during staffing meeting, and counseling patient. Physical Exam - Physical Exam General Appearance: WD/WN, alert, no apparent distress Respiratory: normal breath sounds, No crackles, No rhonchi, No wheezing Cardiac/Chest: regular rate, rhythm, systolic murmur, No edema Skin: normal color, warm/dry Neuro/Psych: alert, normal mood/affect ICD10 Worksheet Patient Problems: Problems Problem Status Onset Diarrhea Acute Pre-syncope Acute Primary osteoarthritis of left knee Acute Primary osteoarthritis of one knee Acute
--- NOTE | 2018-01-12 14:47 | PDOREHIP ---
Admission [facility] - Admission - 3 Day Assessment Period Admission Date/Day 1: 12/26/17 Day 2: 12/27/17 Day 3: 12/28/17 Discharge [facility] - Discharge - 3 Day Assessment Period 2 Days Prior to Anticipated Discharge Date: 01/11/18 1 Day Prior to Anticipated Discharge Date: 01/12/18 Anticipated Discharge Date: 01/13/18 - Discharge Skin Conditions Unhealed Pressure Ulcer (1 or more/Stage 1 or >)-Discharge: 0. No
[2018-01-12 18:04] VITALS: BP 129/65
[2018-01-12] MEDS: VITAMIN B COMPLEX 1 EA CAP/TAB PO SCH (20:06)
--- NOTE | 2018-01-14 14:59 | PDDCSUM ---
[facility] Patient Name: MELANY RODRIGUEZ Rpt#: [id number] Unit Number: [id number] Attending: Zack Domingo MD Adm Date: 12/26/17 ADDENDUM TO PREVIOUSLY DICTATED REPORT A total of 40 min was spent on the floor in the care of the patient, the majority of which was spent counseling coordination of care of discharge planning. Raphael Shook MD 01/13/18 [id number] <Electronically signed by Raphael Shook MD> [id number] T: TERRI 01/13/18 CC: El Morris MD; Zack Domingo MD; Raphael Shook MD Discharge Summary Discharge Summary: Name: Melany Rodriguez Admission date: 12/26/2017 Discharge date: 01/13/2018 Discharging physician: Raphael Shook MD, Jasper Domingo MD Admitting diagnosis: 1.2, stroke with right body involvement, left brain Discharge diagnosis: Same Comorbid diagnoses: Aphasia, cognitive impairment, somnolence, apathy, urinary tract infection, urinary retention, dysphagia, hypertension, dyslipidemia, secondary stroke prevention, possible history of depression, pain management, hypokalemia, constipation Consultations: physical therapy, occupational therapy, speech language pathology, social work, dietary Procedures: Chest x-ray on 01/01/2018 with right basilar atelectasis, no pneumonia Reason for admission: Please see the history and physical by Dr. Zack Domingo from 12/26/2017 for full details, briefly the patient was admitted to [facility] on 12/21/2017 following multiple falls and diarrhea. MRI of the brain showed a left occipital stroke. Source was not definitively found. She she came to inpatient rehabilitation for further treatment Rehabilitation course: Her rehabilitation course was notable for gradually decreasing functional independence measure that was initially 57 on 12/30/2017 and was 48 as of 01/12/2018. She had a right-sided breanne inattention, she also had a very flat affect and apathy throughout the hospital course. Mirtazapine was discontinued on 12/31/2017 with some improvement but it persisted. She she is treated for urinary tract infection with 3 days of ciprofloxacin, continue to have some elevated postvoid residual she. Started on tamsulosin as well as bethanechol. Did not treat blood pressure with diuretic because of urinary retention issues. She continued to require a dysphagia diet. Hypertension was controlled on amlodipine and irbesartan. She stroke prevention was continued with Plavix as well. Fluoxetine was initiated for neural recovery and titrated to 20 mg a day. This may also treat her history of depression, as mirtazapine was stopped. Discharge plan: Charging to [facility] Condition: Requiring assistance with all ADLs and care Medications at discharge: Please see accompanying medication list for discharge medications and reconciliation Pending studies: At the time of this discharge summary, a repeat CBC was ordered to check for any change in her anemia that has fluctuated based on recent labs. The computer system is going and down time shortly, updates may have to happen afterwards Issues to be addressed at follow-up: Follow-up with Neurology for secondary stroke prevention as well as Cardiology for monitoring. Follow up: As mentioned above, she will follow up with Dr. Zambrano from Neurology, Dr. Canela from Cardiology On the day of discharge, she was in no apparent distress, vital signs were normal and stable. No new shortness of breath or chest pain, no new numbness, tingling, or weakness. She had no leg swelling, cardiac was regular rate and rhythm. She had persistent flat affect and weakness. Raphael Shook MD 01/13/18952 <Electronically signed by Raphael Shook MD> 3 T: TERRI 01/13/18943 CC: El Morris MD; Zack Domingo MD; Raphael Shook MD
== END 2018-01-13 13:00 | DRG 57 ==
LOC: BREH 17:34
PROVIDERS: ADMIT Internal Medicine; ATTEND Internal Medicine
PROC: F0636ZZ Communicative/Cognitive Integration Skills Treatment of Neurological System - Whole Body (ICD-10-PCS; principal; 2017-12-26)
PROC: F07M3ZZ Motor Function Treatment of Musculoskeletal System - Whole Body (ICD-10-PCS; principal; 2017-12-26)
PROC: F08Z7ZZ Vocational Activities and Functional Community or Work Reintegration Skills Treatment (ICD-10-PCS; principal; 2017-12-26)
DX: I69.398 Other sequelae of cerebral infarction (principal); R53.81 Other malaise; G31.84 Mild cognitive impairment of uncertain or unknown etiology; I69.320 Aphasia following cerebral infarction; E87.6 Hypokalemia; I10 Essential (primary) hypertension; E78.5 Hyperlipidemia, unspecified; E53.8 Deficiency of other specified B group vitamins; N39.0 Urinary tract infection, site not specified; B96.20 Unspecified Escherichia coli [E. coli] as the cause of diseases classified elsewhere; R40.0 Somnolence; R45.3 Demoralization and apathy; K59.00 Constipation, unspecified; D64.9 Anemia, unspecified
CPT/HCPCS: 92507-GN; 92508-GN; 92523-GN; 92526-GN; 92610-GN; 97110-GO; 97110-GP; 97112-GO; 97116-GP; 97161-GP; 97166-GO; 97530-GO; 97530-GP; 97535-GO; G0515-GO; J1650

== ENCOUNTER 2018-02-21 10:15 | Inpatient (IN) | payer OTHER, MEDICAID ==
--- NOTE | 2018-02-21 10:31 | CPEKG ---
Heart Rate: 63 RR Interval: 952 P-R Interval: 164 QRSD Interval: 98 QT Interval: 412 QTC Interval: 422 P [place]: 70 QRS [place]: 6 T Wave [place]: 58 EKG Severity - NORMAL ECG - EKG Impression: SINUS RHYTHM Electronically Signed By: Nimesh Gamino 21-Feb-2018 10:41:07
--- NOTE | 2018-02-21 10:33 | EDPHY ---
H & P Time Seen by Provider: 02/21/18 10:21 HPI/ROS: CHIEF COMPLAINT: Increasing weakness for 2 days HISTORY OF PRESENT ILLNESS: Patient had an ischemic stroke and was discharged from rehab on 01/13/2018. The discharge summaries reviewed personally and she presented on December 21 with falls and diarrhea. She had a left occipital stroke on MRI. In rehab she had some right-sided breanne inattention but she also did have a urinary tract infection treated with Cipro. REVIEW OF SYSTEMS: Eye: no change in vision ENT: no sore throat Cardiac: no chest pain or syncope Pulmonary: no cough or SOB Abdomen: no vomiting, diarrhea, abdominal pain Musculoskeletal: no back pain Skin: no rash Neuro: no headache Constitutional: no fever : no urinary symptoms A comprehensive 10 point review of systems is otherwise negative aside from elements mentioned in the history of present illness. PAST MEDICAL HISTORY: Includes ischemic stroke, chronic back pain and depression, hypertension, aortic regurgitation on echo in 2010 Social history: Nonsmoker General Appearance: Alert and conversant, cooperative. Eyes: No scleral icterus. ENT, Mouth: Normal mucous membranes. Respiratory: Normal respiratory effort, breath sounds equal, lungs are clear to auscultation. Cardiovascular: Regular rate and rhythm. 2/6 systolic murmur. Gastrointestinal: Abdomen is soft and non tender. Neurological: She is able to lift each leg off the bed. She has good bilateral security solutions architect strength. She can respond appropriately to questions. Her face is symmetric and her extraocular motions are intact. Skin: Warm and dry, no rashes. Musculoskeletal: No peripheral edema. Psychiatric: Not agitated. Emergency Department course/MDM: EKG and troponin, noncontrast head CT, urinalysis and labs to include electrolytes. 1112: Results discussed with the patient, admission for UTI making her systemically so weak it would be inappropriate for to go home because her baseline is using a walker to get around. Ceftriaxone 1 g IV and urine culture sent. Results and plan discussed with the patient. Smoking Status: Never smoked Constitutional: Initial Vital Signs Temperature (C) 36.9 C 02/21/18 10:18 Heart Rate 66 02/21/18 10:18 Respiratory Rate 18 02/21/18 10:18 Blood Pressure 159/77 H 02/21/18 10:18 O2 Sat (%) 94 02/21/18 10:18 O2 Delivery Mode Room Air Allergies/Adverse Reactions: Sulfa (Sulfonamide Antibiotics) Allergy (Unknown, Verified 02/21/18 10:17) Unknown Home Medications: Medication Instructions Recorded Cholecalciferol Vit D3 [Vitamin D3 5,000 units PO DAILY 05/21/13 2000 units] Irbesartan [Avapro 150 mg (*)] 300 mg PO DAILY 05/21/13 Acetaminophen [Tylenol 325mg (*)] 650 mg PO Q4HRS PRN tab 12/26/17 Atorvastatin Calcium [Lipitor 40 40 mg PO DAILY tab 12/26/17 mg (*)] Clopidogrel Bisulfate [Plavix (*)] 75 mg PO DAILY tab 12/26/17 Bethanechol [Urecholine (*)] 20 mg PO QID tab 01/12/18 Enoxaparin [Lovenox 40 MG (*)] 40 mg SC DAILY syr 01/12/18 FLUoxetine [Prozac 20 MG (*)] 20 mg PO DAILY cap 01/12/18 Polyethylene Glycol 3350 [Miralax 17 gm PO DAILY PRN pkt 01/12/18 17 gm (*)] Sennosides/Docusate Sodium 1 tab PO BID tab 01/12/18 [Senokot-S] Tamsulosin HCl [Flomax 0.4 MG (*)] 0.8 mg PO DAILY cap 01/12/18 Vitamin B Complex [Vitamin B 1 ea PO HS ea 01/12/18 Complex (OTC)] amLODIPine BESYLATE [Norvasc 5 mg 5 mg PO DAILY tab 01/12/18 (*)] traMADol [Ultram 50 mg (*)] 25 - 50 mg PO BID PRN tab 01/12/18 Medical Decision Making - Diagnostics EKG Interpretation: 12-lead EKG interpreted by me; official reading is in trace master. My interpretation is sinus rhythm without ischemic changes. Imaging Results: Imaging Impressions Head CT 02/21/18 10:34 Impression: 1. Interval development of encephalomalacia associated with left posterior temporal to occipital lobe medial infarct. 2. No hemorrhage, mass effect, or definite acute peripheral infarct. 3. Moderate nonspecific hypodensities in the white matter of bilateral cerebral hemispheres. Differential diagnosis includes microvascular ischemic disease, post-infectious/post-inflammatory sequela, atypical demyelinating disease, or migraine-related sequela. Small white matter lacunar infarcts may also have this appearance. 4. Stable mild to moderate age-related atrophy. 5. 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 If symptoms worsen, additional imaging may be necessary. Findings discussed with Nimesh Gamino M.D. at 11:19 hour, 02/21/2018. Old infarct on CT, Finer at 1119; otherwise no change. Imaging: Discussed imaging studies w/ call center operations manager Radiologist, I viewed and interpreted images myself Differential Diagnosis: Differential diagnosis considered for weakness including but not limited to electrolyte abnormality, depression, anxiety, CVA, spinal cord abnormality, and infectious causes. Consult/Admit Bed Type: [facility]6 - Data Points Laboratory Results: Laboratory Results 02/21/18 10:15 02/21/18 10:15 02/21/18 02/21/18 02/21/18 11:03 10:45 10:15 WBC RBC Hgb Hct MCV MCH MCHC RDW Plt Count MPV Neut % (Auto) Lymph % (Auto) [place] % (Auto) Eos % (Auto) Baso % (Auto) Nucleat RBC Rel Count Absolute Neuts (auto) Absolute Lymphs (auto) Absolute Monos (auto) Absolute Eos (auto) Absolute Basos (auto) Absolute Nucleated RBC Immature Gran % Immature Gran # Sodium 137 mEq/L mEq/L (135-145) Potassium 4.2 mEq/L mEq/L (3.3-5.0) Chloride 104 mEq/L mEq/L (97-110) Carbon Dioxide 24 mEq/l mEq/l (22-31) Anion Gap 9 mEq/L mEq/L (8-16) BUN 15 mg/dL mg/dL (7-23) Creatinine 1.0 mg/dL mg/dL (0.6-1.0) Estimated GFR 54 Glucose 84 mg/dL mg/dL (70-100) Calcium 10.7 mg/dL H mg/dL (8.5-10.4) Phosphorus 3.4 mg/dL mg/dL (2.5-4.5) POC Troponin I 0.02 ng/mL ng/mL (0.00-0.08) Urine Color ARIANA Urine Appearance HAZY Urine pH 6.0 (5.0-7.5) Ur Specific [place] 1.010 (1.002-1.030) Urine Protein NEGATIVE (NEGATIVE) Urine Ketones NEGATIVE (NEGATIVE) Urine Blood NEGATIVE (NEGATIVE) Urine Nitrate POSITIVE H (NEGATIVE) Urine Bilirubin NEGATIVE (NEGATIVE) Urine Urobilinogen 4.0 EU H EU (0.2-1.0) Ur Leukocyte Esterase 1+ H (NEGATIVE) Urine RBC 1-3 /hpf /hpf (0-3) Urine WBC 15-25 /hpf H /hpf (0-3) Ur Epithelial Cells TRACE /lpf /lpf (NONE-1+) Urine Bacteria 2+ /hpf H /hpf (NONE SEEN) Urine Glucose NEGATIVE (NEGATIVE) 02/21/18 10:15 WBC 4.89 10^3/uL 10^3/uL (3.80-9.50) RBC 4.26 10^6/uL 10^6/uL (4.18-5.33) Hgb 11.9 g/dL L g/dL (12.6-16.3) Hct 36.1 % L % (38.0-47.0) MCV 84.7 fL fL (81.5-99.8) MCH 27.9 pg pg (27.9-34.1) MCHC 33.0 g/dL g/dL (32.4-36.7) RDW 15.5 % H % (11.5-15.2) Plt Count 278 10^3/uL 10^3/uL (150-400) MPV 9.8 fL fL (8.7-11.7) Neut % (Auto) 49.7 % % (39.3-74.2) Lymph % (Auto) 36.0 % % (15.0-45.0) [place] % (Auto) 12.5 % % (4.5-13.0) Eos % (Auto) 1.2 % % (0.6-7.6) Baso % (Auto) 0.4 % % (0.3-1.7) Nucleat RBC Rel Count 0.0 % % (0.0-0.2) Absolute Neuts (auto) 2.43 10^3/uL 10^3/uL (1.70-6.50) Absolute Lymphs (auto) 1.76 10^3/uL 10^3/uL (1.00-3.00) Absolute Monos (auto) 0.61 10^3/uL 10^3/uL (0.30-0.80) Absolute Eos (auto) 0.06 10^3/uL 10^3/uL (0.03-0.40) Absolute Basos (auto) 0.02 10^3/uL 10^3/uL (0.02-0.10) Absolute Nucleated RBC 0.00 10^3/uL 10^3/uL (0-0.01) Immature Gran % 0.2 % % (0.0-1.1) Immature Gran # 0.01 10^3/uL 10^3/uL (0.00-0.10) Sodium Potassium Chloride Carbon Dioxide Anion Gap BUN Creatinine Estimated GFR Glucose Calcium Phosphorus POC Troponin I Urine Color Urine Appearance Urine pH Ur Specific [place] Urine Protein Urine Ketones Urine Blood Urine Nitrate Urine Bilirubin Urine Urobilinogen Ur Leukocyte Esterase Urine RBC Urine WBC Ur Epithelial Cells Urine Bacteria Urine Glucose Medications Given: Ceftriaxone Sodium/Dextrose (Rocephin 1 Gm (Premix)) 50 mls @ 100 mls/hr IV EDNOW ONE PRN Reason: Protocol Stop: 02/21/18 11:38 Last Admin: 02/21/18 11:14 Dose: 50 mls Discontinued Medications Sodium Chloride (Ns) 1,000 mls @ 0 mls/hr IV EDNOW ONE; Wide Open PRN Reason: Protocol Stop: 02/21/18 11:20 Last Admin: 02/21/18 11:25 Dose: 1,000 mls Point of Care Test Results: Chemistry 02/21/18 11:03 POC Troponin I 0.02 ng/mL ng/mL (0.00-0.08) Departure - Dep[facility]ure [facility] Clinical Impression: Weakness, UTI (urinary tract infection) Condition: Good
[2018-02-21 10:40] LABS: PLATELET COUNT 278 10^3/uL (150-400)
[2018-02-21] MEDS ORDERED: NS 1,000 ML IV ONE (11:19)
[2018-02-21] MEDS ORDERED: ONDANSETRON 4 MG/2 ML VIAL IVP PRN (11:41)
[2018-02-21] MEDS ORDERED: ONDANSETRON DISINTEGRATING 4 MG TAB PO PRN (11:41)
[2018-02-21] MEDS ORDERED: ACETAMINOPHEN 325 MG TAB PO PRN (11:41)
--- NOTE | 2018-02-21 11:57 | ASMTLACE ---
JUAN Acuity / Level of Answers: No Care: Did the patient have an inpatient admission? Comorbidities - select Answers: Cerebrovascular disease all that apply (CVA, TIA, aneurysms, vasc ular dementia) History of falls Opioid dependence / Chronic pain Other Notes: chronic back pain, depression, frequ ent UTIs # of Emergency department Answers: 1-2 visits in the last 6 months Social determinants Answers: Mental health diagnosis (anxiety, depression, pers onality disorders, etc.) Score: 13 Date Signed: 02/21/2018 11:56 AM Electronically Signed By:Paola Gamez RN
--- NOTE | 2018-02-21 12:18 | ASMTCMCOM ---
CM Note CM Note Notes: Pt presented to the ED via EMS from home for weakness, ongoing UTI symptoms. Pt recently admitted 12/21/17 after having a stroke. Pt was d/c'd 12/26 to [facility] Inpt Rehab and then d/c'd on 01/13 to a LTC bed at [facility] ([phone]). Pt recently discharged from [facility] on 02/19 at 1900 to home per patient and family's request due to pt's not doing well without pt there. Pt and live in a private home in [place] w/their daughter, Reema Chavez ([phone] or [phone]) and son-in-law, Franny Chavez ([phone],c: [phone]) as primary caregivers). This CM spoke w/ son-in-law Franny and he says that since patient returned home two days ago (without any homecare assistance in place), they have been struggling to be able to care for her and feel that she needs to return to [facility] or another facility to receive a higher level of care. There is also concern about their ability to care for pt's if pt is not living at home. Franny says patient has had multiple falls in the past two days and also presents very confused or disoriented; Franny says they take pt to the bathroom every 2 hrs but she doesn't always urinate but then continues to perseverate on needing to urinate; pt will remove her depends, be walking around the house naked but then is adamant that she is not naked and doesn't realize she was just incontinent of either urine and/or stool. Pt had [facility] before her stroke in December; pt's PCP is Dr Morris. Franny says they would love for patient to get into [facility] but has also been satisfied w/[facility] . Pt has Medicare part B only and Medicaid. Anticipate pt will need to dc to SNF on LTC. CM to follow. Date Signed: 02/21/2018 12:17 PM Electronically Signed By:Paola Gamez RN
[2018-02-21] MEDS: D5W 1/2 NS W/ 20 KCl/L 1,000 ML IV SCH (15:01)
--- NOTE | 2018-02-21 17:07 | PDGENHP ---
History and Physical - Chief Complaint Acute weakness - History of Present Illness Primary care provider: Dr. El Morris Primary banquet bartender: Dr. Canela Primary neurologist: Dr. Zambrano HPI: 77-year-old female presents with weakness characterized as generalized, resulting in associated falls, unusual and erratic behavior at home such as ambulating seemingly purposelessly without clothes on, she reaching, occasionally being indirectable. The onset of the symptoms were noted by the family 2 days ago and duration has been persistent thereafter. That being said , the patient was recently cared for at [facility] for the past month. Per family report, the patient had been engaging in some of these behaviors while she was at [facility], but they accommodated her and were able to work with her to keep her safe. She had reportedly had falls at [facility], and had also been found sitting down on the floor, which was not unusual to her behavior while she was at inpatient rehab approximately 1 month ago. She had been transferred to [facility] from inpatient rehab at [place] after she had failed to progress from a therapy perspective following a recent stroke. The patient otherwise denies any symptoms other than feeling cold and she would like to be covered up with blankets. She otherwise provides no history. 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 Recurrent urinary tract infections with most recent 1 treated December 30 with 3 days of ciprofloxacin. Urinary retention and frequent urinary symptoms, most recently frequency, urgency. Aortic insufficiency - Surgical History Reports: no pertinent surgical hx - Family History Additional family history: parents, the has numerous medical conditions undefined, and is currently residing within the family home - Social History Smoking Status: Never smoked Alcohol Use: None Drug Use: None Additional social history: As noted in HPI, the patient recently spent the past month at [facility] and she was transitioned home at the family's request because her was declining and they felt that the patient and her would benefit from being in close proximity to each other Review of Systems Review of Systems: ROS: 10pt was reviewed & negative except for what was stated in HPI & below Constitutional: Reports: chills, weakness Neurological: Reports: other (Intermittent erratic behavior) Physical Exam Physical Exam: Temp Pulse Resp BP Pulse Ox 36.1 C 60 16 163/89 H 99 02/21/18 12:07 02/21/18 14:37 02/21/18 12:07 02/21/18 14:37 02/21/18 14:56 Constitutional: no apparent distress, appears nourished, not in pain, uncomfortable (Secondary to cold) Eyes: PERRL, anicteric sclera, EOMI Ears, Nose, Mouth, Throat: moist mucous membranes, hearing normal, ears appear normal, no oral mucosal ulcers Cardiovascular: irregularly irregular (Sternal border), No systolic murmur, No tachycardia, No edema Respiratory: no respiratory distress, no rales or rhonchi, clear to auscultation Gastrointestinal: normoactive bowel sounds, soft, non-tender abdomen, no palpable masses, No distension Neurologic: facial droop (Right-sided facial palsy), No AAOx3 (Alert awake oriented x2 to person and place not to time), No weakness (Motor strength 5/5 bilateral upper extremity eap counselor strength) Psychiatric: not anxious, encephalopathic, poor insight, poor memory, No agitated Lab Data & Imaging Review 02/21/18 10:15 02/21/18 10:15 WBC 4.89 10^3/uL (3.80-9.50) 02/21/18 10:15 RBC 4.26 10^6/uL (4.18-5.33) 02/21/18 10:15 Hgb 11.9 g/dL (12.6-16.3) L 02/21/18 10:15 Hct 36.1 % (38.0-47.0) L 02/21/18 10:15 MCV 84.7 fL (81.5-99.8) 02/21/18 10:15 MCH 27.9 pg (27.9-34.1) 02/21/18 10:15 MCHC 33.0 g/dL (32.4-36.7) 02/21/18 10:15 RDW 15.5 % (11.5-15.2) H 02/21/18 10:15 Plt Count 278 10^3/uL (150-400) 02/21/18 10:15 MPV 9.8 fL (8.7-11.7) 02/21/18 10:15 Neut % (Auto) 49.7 % (39.3-74.2) 02/21/18 10:15 Lymph % (Auto) 36.0 % (15.0-45.0) 02/21/18 10:15 [place] % (Auto) 12.5 % (4.5-13.0) 02/21/18 10:15 Eos % (Auto) 1.2 % (0.6-7.6) 02/21/18 10:15 Baso % (Auto) 0.4 % (0.3-1.7) 02/21/18 10:15 Nucleat RBC Rel Count 0.0 % (0.0-0.2) 02/21/18 10:15 Absolute Neuts (auto) 2.43 10^3/uL (1.70-6.50) 02/21/18 10:15 Absolute Lymphs (auto) 1.76 10^3/uL (1.00-3.00) 02/21/18 10:15 Absolute Monos (auto) 0.61 10^3/uL (0.30-0.80) 02/21/18 10:15 Absolute Eos (auto) 0.06 10^3/uL (0.03-0.40) 02/21/18 10:15 Absolute Basos (auto) 0.02 10^3/uL (0.02-0.10) 02/21/18 10:15 Absolute Nucleated RBC 0.00 10^3/uL (0-0.01) 02/21/18 10:15 Immature Gran % 0.2 % (0.0-1.1) 02/21/18 10:15 Immature Gran # 0.01 10^3/uL (0.00-0.10) 02/21/18 10:15 Sodium 137 mEq/L (135-145) 02/21/18 10:15 Potassium 4.2 mEq/L (3.3-5.0) 02/21/18 10:15 Chloride 104 mEq/L (97-110) 02/21/18 10:15 Carbon Dioxide 24 mEq/l (22-31) 02/21/18 10:15 Anion Gap 9 mEq/L (8-16) 02/21/18 10:15 BUN 15 mg/dL (7-23) 02/21/18 10:15 Creatinine 1.0 mg/dL (0.6-1.0) 02/21/18 10:15 Estimated GFR 54 02/21/18 10:15 Glucose 84 mg/dL (70-100) 02/21/18 10:15 Calcium 10.7 mg/dL (8.5-10.4) H 02/21/18 10:15 Phosphorus 3.4 mg/dL (2.5-4.5) 02/21/18 10:15 POC Troponin I 0.02 ng/mL (0.00-0.08) 02/21/18 11:03 TSH 2.350 uIU/mL (0.465-4.680) 02/21/18 10:55 Urine Color ARIANA 02/21/18 10:45 Urine Appearance HAZY 02/21/18 10:45 Urine pH 6.0 (5.0-7.5) 02/21/18 10:45 Ur Specific [place] 1.010 (1.002-1.030) 02/21/18 10:45 Urine Protein NEGATIVE (NEGATIVE) 02/21/18 10:45 Urine Ketones NEGATIVE (NEGATIVE) 02/21/18 10:45 Urine Blood NEGATIVE (NEGATIVE) 02/21/18 10:45 Urine Nitrate POSITIVE (NEGATIVE) H 02/21/18 10:45 Urine Bilirubin NEGATIVE (NEGATIVE) 02/21/18 10:45 Urine Urobilinogen 4.0 EU (0.2-1.0) H 02/21/18 10:45 Ur Leukocyte Esterase 1+ (NEGATIVE) H 02/21/18 10:45 Urine RBC 1-3 /hpf (0-3) 02/21/18 10:45 Urine WBC 15-25 /hpf (0-3) H 02/21/18 10:45 Ur Epithelial Cells TRACE /lpf (NONE-1+) 02/21/18 10:45 Urine Bacteria 2+ /hpf (NONE SEEN) H 02/21/18 10:45 Urine Glucose NEGATIVE (NEGATIVE) 02/21/18 10:45 Visualized and Interpreted Chest x-ray results: Yes Chest X-Ray results: no infiltrate Visualized and Interpreted EKG results: Yes EKG Interpretation: Positive for: other (Normal sinus rhythm) Assessment & Plan Assessment: 77-year-old female presents with witnessed fall secondary to generalized weakness and inability to complete activities of daily living at home after being transition back there from long-term care Plan: 1. Weakness. Acute on chronic, new problem this provider, further workup indicated. I suspect that this is being acutely recognized by the patient's family over the past 2 days because they have transition her back home and are now completely responsible for activities of daily living. I suspect that the patient's weakness and functional status has been low over the past month, but has been properly supported at the appropriate level of care which is likely a fdc facility with long-term care. Reviewed outside records including the discharge summary by Dr. Perry from inpatient rehab on 01/13/2018, and he expresses that the patient's functional independence declined during her stay for intensive therapy and that she was discharged with ongoing right-sided breanne-neglect, paresis, flat affect. Will get respiratory viral panel to rule out any potential infectious precipitant and will monitor the urine culture to see if her possible urinary tract infection does speciation. -empirically give antibiotics for possible urinary tract infection which could be acutely worsening her functional status, continue IV ceftriaxone -check RVP -head CT with left-sided post encephalomalacia, white matter disease, atrophy, nothing acute -get physical, occupational, cognitive therapy assessments -discussed with case management in the emergency department, will begin looking into the patient's fdc facility options, as the patient's family have expressed that they are unable to care for her safely at home and will determine whether she qualifies to return to [facility] 2. Recent CVA. Continue Plavix, statin, antihypertensives 3. Urinary symptoms. Including frequency and urgency, patient had pervasive urinary symptoms during her inpatient rehab stay and we attempted medical management including bethanechol, pyridium, treat supportively 4. Chronic encephalopathy. Patient most likely has vascular dementia which has developed concomitantly with her recent CVA, her mental status currently appears to be where was approximately 1 month ago and as mentioned above will have a cognitive therapy evaluation to reaffirmed that she requires a level of care consistent with long-term, supportive care Diet. Regular Prophylaxis. High risk patient, Lovenox for Code. Full Disposition. Anticipated discharge 02/22 if the patient qualifies for fdc facility placement and she and her family are amenable. She is unsafe to be discharged back into her home setting at this time. Discussed with Dr. Nimesh Gamino in the emergency department, he and I both agree that the patient requires further medical in case management assistance.
[2018-02-21] MEDS: SENNOSIDES/DOCUSATE SODIUM TAB PO SCH (21:39)
[2018-02-21] MEDS: PHENAZOPYRIDINE HCL 200 MG TAB PO SCH (21:39)
[2018-02-22] MEDS: MELATONIN 3 MG TAB PO SCH ×2 (00:44→21:08)
[2018-02-22] MEDS: D5W 1/2 NS W/ 20 KCl/L 1,000 ML IV SCH (02:35)
[2018-02-22 05:04] LABS: PLATELET COUNT 215 10^3/uL (150-400)
[2018-02-22] MEDS: CLOPIDOGREL BISULFATE 75 MG TAB PO SCH (09:24)
[2018-02-22] MEDS: amLODIPine BESYLATE 5 MG TAB PO SCH (09:24)
[2018-02-22] MEDS: IRBESARTAN 150 MG TAB PO SCH (09:25)
[2018-02-22] MEDS: PHENAZOPYRIDINE HCL 200 MG TAB PO SCH ×3 (09:27→21:07)
[2018-02-22] MEDS: CHOLECALCIFEROL VIT D3 2,000 UNITS TAB/CAP PO SCH (09:27)
[2018-02-22] MEDS: ENOXAPARIN 40 MG/0.4 ML SYR SC SCH (09:30)
[2018-02-22] MEDS: SENNOSIDES/DOCUSATE SODIUM TAB PO SCH ×2 (09:32→21:07)
--- NOTE | 2018-02-22 13:35 | HOSPPROG ---
Hospitalist Progress Note Assessment/Plan: Assessment: 77-year-old female presents with witnessed fall secondary to generalized weakness and inability to complete activities of daily living at home after being transition back there from long-term care, possible UTI Plan: 1. Weakness. Acute on chronic, significant functional decline s/p recent CVA, potentially exacerbated by UTI -ongoing physical, occupational, cognitive therapy assessments -discussed with case management, we agree that [facility] ([facility]) is safest [place] locale 2. Recent CVA. Continue Plavix, statin, antihypertensives 3. Urinary symptoms. Including frequency and urgency, patient had pervasive urinary symptoms during her inpatient rehab stay and we attempted medical management including bethanechol, pyridium, treat supportively -RN performing scheduled voiding 4. Chronic encephalopathy. Patient most likely has vascular dementia which has developed concomitantly with her recent CVA, her mental status currently appears to be where was approximately 1 month ago and as mentioned above will have a cognitive therapy evaluation to reaffirmed that she requires a level of care consistent with long-term, supportive care 5. Possible UTI. POA, positive UA and acute functional decline, UCx pending -D#2/3 Abx Diet. Regular Prophylaxis. High risk patient, Lovenox for Code. Full Disposition. Anticipated discharge uncertain, upgrade to INPT status as patient is unsafe to be discharged back into her home setting at this time, anticipate LOS > 48hrs until appropriate level of care obtained. Subjective: patient reports she feels like she needs to urinate Objective: Vital Signs Temp Pulse Resp BP Pulse Ox 36.6 C 60 14 128/60 H 96 02/22/18 10:57 02/22/18 10:57 02/22/18 10:57 02/22/18 10:57 02/22/18 10:57 Microbiology 02/21/18 19:22 Respiratory Panel (PCR) - Final Nasal, Sinus - Swab No Organism Detected Laboratory Results 02/22/18 04:19 02/22/18 04:19 02/21/18 02/22/18 02/23/18 05:59 05:59 05:59 Intake Total 200 Output Total 200 400 Balance 0 -400 - Physical Exam Constitutional: no apparent distress, not in pain, chronically ill appearing, No uncomfortable Cardiovascular: regular rate and rhythym, systolic murmur (III/ at sternum), No irregularly irregular, No tachycardia, No bradycardia, No edema Respiratory: no respiratory distress, no rales or rhonchi, clear to auscultation Gastrointestinal: normoactive bowel sounds, soft, non-tender abdomen, no palpable masses Neurologic: facial droop (R facial palsy), No AAOx3 (AAOx1 (person only)), No weakness (motor 5/5 bilat UE/LE) Psychiatric: not anxious, encephalopathic, flat affect, poor insight, poor memory, No agitated ICD10 Worksheet Patient Problems: Problems Problem Status Onset Primary osteoarthritis of one knee Acute Primary osteoarthritis of left knee Acute Diarrhea Acute Pre-syncope Acute Weakness Acute UTI (urinary tract infection) Acute
--- NOTE | 2018-02-22 13:43 | ASMTCMCOM ---
CM Note CM Note Notes: 02/22/2018 Case Management Note Discussed case with Dr. Swift who is anticipating a SNF rehab discharge. Faxed referral to [facility]. Spoke with Talia from [facility], per Talia pt d/c from facility on 02/19/2018. Awaiting PT evals to send to [facility]. Case Management to assess on Friday if appropriate to apply for [facility] 100 and correction medicaid application. Case Management d/c poc: to be determined. Case Management to follow. Date Signed: 02/22/2018 01:43 PM Electronically Signed By:Alize Teresa RN
--- NOTE | 2018-02-22 17:13 | PDMN ---
Medical Necessity Medical necessity: Pt meets INPT criteria per MD as of 02/22/18 (est. LOS >2 MN for ongoing eval/mgmt of weakness s/p fall, recent CVA, urinary symptoms, possible UTI, chronic encephalopathy; pt unsafe to be discharged back to her home setting).
[2018-02-23] MEDS ORDERED: amLODIPine BESYLATE 5 MG TAB PO ONE (09:40)
[2018-02-23] MEDS: ENOXAPARIN 40 MG/0.4 ML SYR SC SCH (11:01)
[2018-02-23] MEDS: PHENAZOPYRIDINE HCL 200 MG TAB PO SCH ×3 (11:02→21:34)
[2018-02-23] MEDS: CLOPIDOGREL BISULFATE 75 MG TAB PO SCH (11:02)
[2018-02-23] MEDS: IRBESARTAN 150 MG TAB PO SCH (11:02)
[2018-02-23] MEDS: CHOLECALCIFEROL VIT D3 2,000 UNITS TAB/CAP PO SCH (11:02)
[2018-02-23] MEDS: SENNOSIDES/DOCUSATE SODIUM TAB PO SCH ×2 (11:03→21:35)
[2018-02-23] MEDS: amLODIPine BESYLATE 5 MG TAB PO SCH ×2 (11:12→11:13)
--- NOTE | 2018-02-23 16:24 | HOSPPROG ---
Hospitalist Progress Note Assessment/Plan: Assessment: 77-year-old female presents with witnessed fall secondary to generalized weakness and inability to complete activities of daily living at home after being transitioned back there from long-term care, possible UTI, suspected chronic encephalopathy (2/2 vascular dementia) Plan: 1. Weakness. Acute on chronic, significant functional decline s/p recent CVA, potentially exacerbated by UTI -ongoing physical, occupational, cognitive therapy assessments -discussed with case management, we agree that long-term care is appropriate level of support for patient, currently sending referrals 2. Recent CVA. Continue Plavix, statin, antihypertensives 3. Urinary symptoms. Including frequency and urgency, patient had pervasive urinary symptoms during her inpatient rehab stay and we attempted medical management including bethanechol, pyridium, treat supportively -RN performing scheduled voiding 4. Chronic encephalopathy. Patient most likely has vascular dementia which has developed concomitantly with her recent CVA, her mental status currently appears to be where it was approximately 1 month ago and as mentioned above will have a cognitive therapy evaluation to reaffirmed that she requires a level of care consistent with long-term -d/w palliative care, consultation being arranged w/ family to discuss goals of care (i.e. halfway care, getting her to possibly join her, adjusting expectations that her level of functioning will fluctuate mildly but will overall be very dependent) 5. Possible UTI. POA, positive UA and acute functional decline, UCx pending -D#3/3 Abx 6. Lower back pain. R lower back, likely MSK in setting of being mostly bed bound -PRN tylenol, heat pad Diet. Regular Prophylaxis. High risk patient, Lovenox 40 Code. Full Disposition. Anticipated discharge uncertain, requiring level of care not currently available, getting palliative consultation today. Subjective: patient reports some mild R lower back pain Objective: Vital Signs Temp Pulse Resp BP Pulse Ox 37.0 C 69 14 153/60 H 98 02/23/18 15:29 02/23/18 15:29 02/23/18 15:29 02/23/18 15:29 02/23/18 15:29 02/22/18 02/23/18 02/24/18 05:59 05:59 05:59 Intake Total 500 Output Total 200 550 Balance 300 -550 - Time Spent With Patient Time Spent with Patient: greater than 35 minutes Time Spent with Patient: Greater than 35 minutes spent on this patients care, greater than 50% of time spent counseling, educating, and coordinating care regarding the above mentioned plan. 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
--- NOTE | 2018-02-23 17:27 | ASMTCMCOM ---
CM Note CM Note Notes: Spoke with patient's daughter, Carmen who is concerned that her mother needs oil heaterman care in a SNF. She reported patient has already been approved through [facility] for [facility]. I did not have an opportunity to check this today so we still need to confirm. The family was asking about facilities and wanted me to send out referrals which I did to the facilities they were interested in. They are not sure they want their mother in [facility] on a long-term basis. CM will follow. Date Signed: 02/23/2018 05:26 PM Electronically Signed By:Sarah Daly LCSW
[2018-02-23] MEDS: MELATONIN 3 MG TAB PO SCH (21:35)
[2018-02-24 05:08] LABS: PLATELET COUNT 222 10^3/uL (150-400)
[2018-02-24] MEDS: ATORVASTATIN CALCIUM 10 MG TAB PO SCH (09:10)
[2018-02-24] MEDS: amLODIPine BESYLATE 5 MG TAB PO SCH (09:12)
[2018-02-24] MEDS: PHENAZOPYRIDINE HCL 200 MG TAB PO SCH (09:13)
[2018-02-24] MEDS: IRBESARTAN 150 MG TAB PO SCH (09:13)
[2018-02-24] MEDS: CLOPIDOGREL BISULFATE 75 MG TAB PO SCH (09:13)
[2018-02-24] MEDS: SENNOSIDES/DOCUSATE SODIUM TAB PO SCH ×2 (09:13→21:37)
[2018-02-24] MEDS: CHOLECALCIFEROL VIT D3 2,000 UNITS TAB/CAP PO SCH (09:14)
[2018-02-24] MEDS: ENOXAPARIN 40 MG/0.4 ML SYR SC SCH (09:17)
[2018-02-24] MEDS ORDERED: BISACODYL 10 MG SUPP PR PRN (11:25)
[2018-02-24] MEDS ORDERED: POLYETHYLENE GLYCOL 3350 17 GM PKT PO PRN (11:25)
[2018-02-24] MEDS ORDERED: MAGNESIUM HYDROXIDE 30 ML UDCUP PO PRN (11:25)
[2018-02-24] MEDS ORDERED: LACTULOSE 20 GM/30 ML UDCUP PO PRN (11:25)
--- NOTE | 2018-02-24 12:16 | ASMTCMCOM ---
CM Note CM Note Notes: I spoke with Jesse at [facility] - patient needs a re-eval in order to go to SNF. I completed and faxed at [facility]. I spoke with patient's daughter and son in law (he is MDPOA) on phone re: discharge planning. They understand that patient may not be an easy placement d/t Medicaid. We have already received some rejections. I explained that we could refer her to various facilities, which I have done. Regarding the facility she came from - [facility] - I advised the patient's family to speak with them directly if they'd like her to go back. The facility has suggested that they do not think they have an appropriate care level for patient. Family is not sure yet if they want to consider [facility] again, so will wait to hear back from other facilities. Case Management will follow. Date Signed: 02/24/2018 12:15 PM Electronically Signed By:Melly Chao RN
--- NOTE | 2018-02-24 13:50 | ASMTCMCOM ---
CM Note CM Note Notes: Spoke with Genet at [facility]. Patient's family went for a tour/meeting and have filled out some preliminary paperwork. 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 We are also waiting on [facility] approval. Case Management will continue to follow. Date Signed: 02/24/2018 01:49 PM Electronically Signed By:Melly Chao RN
--- NOTE | 2018-02-24 15:27 | HOSPPROG ---
Hospitalist Progress Note Assessment/Plan: Assessment: 77-year-old female presents with witnessed fall secondary to generalized weakness and inability to complete activities of daily living at home after being transitioned back there from long-term care, possible UTI, suspected chronic encephalopathy (2/2 vascular dementia) Plan: 1. Weakness. Acute on chronic, significant functional decline s/p recent CVA, potentially exacerbated by UTI -ongoing physical, occupational, cognitive therapy assessments -discussed with case management, we agree that long-term care is appropriate level of support for patient, referrals pending, family touring facilities 2. Recent CVA. Continue Plavix, statin, antihypertensives 3. Urinary symptoms. Including frequency and urgency, patient had pervasive urinary symptoms during her inpatient rehab stay and we attempted medical management including bethanechol, pyridium, treat supportively -RN performing scheduled voiding -d/w pharmacy, pyridium has run its course and will be stopped 4. Chronic encephalopathy. Patient most likely has vascular dementia which has developed concomitantly with her recent CVA, her mental status currently appears to be where it was approximately 1 month ago and as mentioned above will have a cognitive therapy evaluation to reaffirmed that she requires a level of care consistent with long-term -palliative care consultation being arranged w/ family to discuss goals of care (i.e. moth exterminator care, getting her to possibly join her, adjusting expectations that her level of functioning will fluctuate mildly but will overall be very dependent) 5. Possible Klebsiella UTI. POA, positive UA and acute functional decline -s/p 3 Abx 6. Lower back pain. R lower back, likely MSK in setting of being mostly bed bound -PRN tylenol, heat pad Diet. Regular Prophylaxis. High risk patient, Lovenox 40 Code. Full Disposition. Anticipated discharge 02/25, requiring level of care not currently available, getting palliative consultation today. Subjective: patient reports no pain Objective: Vital Signs Temp Pulse Resp BP Pulse Ox 36.4 C 60 18 104/65 91 L 02/24/18 04:00 02/24/18 12:00 02/24/18 12:00 02/24/18 12:00 02/24/18 09:11 Laboratory Results 02/24/18 04:58 02/24/18 04:58 02/23/18 02/24/18 02/25/18 05:59 05:59 05:59 Intake Total 500 800 Output Total 200 850 Balance 300 -50 - Pending Discharge Pending Discharge Within 24 Hours: Yes Pending Discharge Date: 02/25/18 Pending Discharge Time: 11:00 - Physical Exam Constitutional: no apparent distress, appears nourished, not in pain, No uncomfortable Cardiovascular: regular rate and rhythym, systolic murmur (I/ at sternum), No tachycardia, No edema Respiratory: no respiratory distress, no rales or rhonchi, clear to auscultation Gastrointestinal: normoactive bowel sounds, soft, non-tender abdomen, no palpable masses Neurologic: facial droop (R facial palsy), No AAOx3 (AAOx1 (person only)), No weakness (motor 5/5 bilat UE/LE) Psychiatric: encephalopathic, flat affect, poor insight, poor judgement, poor memory, other (lethargic but arousable) ICD10 Worksheet Patient Problems: Problems Problem Status Onset Primary osteoarthritis of one knee Acute Primary osteoarthritis of left knee Acute Diarrhea Acute Pre-syncope Acute Weakness Acute UTI (urinary tract infection) Acute
[2018-02-24] MEDS: MELATONIN 3 MG TAB PO SCH (21:37)
[2018-02-25] MEDS: amLODIPine BESYLATE 5 MG TAB PO SCH (08:06)
[2018-02-25] MEDS: CHOLECALCIFEROL VIT D3 2,000 UNITS TAB/CAP PO SCH (08:06)
[2018-02-25] MEDS: ATORVASTATIN CALCIUM 10 MG TAB PO SCH (08:07)
[2018-02-25] MEDS: CLOPIDOGREL BISULFATE 75 MG TAB PO SCH (08:07)
[2018-02-25] MEDS: SENNOSIDES/DOCUSATE SODIUM TAB PO SCH ×2 (08:07→20:58)
[2018-02-25] MEDS: ENOXAPARIN 40 MG/0.4 ML SYR SC SCH (08:07)
[2018-02-25] MEDS: IRBESARTAN 150 MG TAB PO SCH (08:07)
--- NOTE | 2018-02-25 15:42 | HOSPPROG ---
Hospitalist Progress Note Assessment/Plan: Assessment: 77-year-old female presents with witnessed fall secondary to generalized weakness and inability to complete activities of daily living at home after being transitioned back there from long-term care, possible UTI, suspected chronic encephalopathy (2/2 vascular dementia) Plan: 1. Weakness. Acute on chronic, significant functional decline s/p recent CVA, potentially exacerbated by UTI -ongoing physical, occupational, cognitive therapy assessments -discussed with case management, we agree that long-term care is appropriate level of support for patient, patient accepted at [facility], family refused discharge today, case mgmt will work w/ family to understand that there are no other appropriate levels of care and that LTC is most appropriate 2. Recent CVA. Continue Plavix, statin, antihypertensives 3. Urinary symptoms. Including frequency and urgency, patient had pervasive urinary symptoms during her inpatient rehab stay and we attempted medical management including bethanechol, pyridium, treat supportively -RN performing scheduled voiding -off pyridium 4. Chronic encephalopathy. Patient most likely has vascular dementia which has developed concomitantly with her recent CVA, her mental status currently appears to be where it was approximately 1 month ago and as mentioned above will have a cognitive therapy evaluation to reaffirmed that she requires a level of care consistent with long-term -palliative care consultation appreciated 5. Possible Klebsiella UTI. POA, positive UA and acute functional decline -s/p 3 Abx 6. Lower back pain. R lower back, likely MSK in setting of being mostly bed bound -PRN tylenol, heat pad Diet. Regular Prophylaxis. High risk patient, Lovenox 40 Code. Full Disposition. Anticipated discharge 02/26, requiring level of care not currently available Subjective: patient reports no pain, wants to void, had BM Objective: Vital Signs Temp Pulse Resp BP Pulse Ox 36.7 C 74 17 139/79 H 96 02/25/18 15:39 02/25/18 15:39 02/25/18 15:39 02/25/18 15:39 02/25/18 15:39 Laboratory Results 02/24/18 04:58 02/24/18 04:58 02/24/18 02/25/18 02/26/18 05:59 05:59 05:59 Intake Total 800 1100 Output Total 850 Balance -50 1100 - Pending Discharge Pending Discharge Within 24 Hours: Yes Pending Discharge Date: 02/26/18 Pending Discharge Time: 11:00 - Physical Exam Constitutional: no apparent distress, appears nourished, not in pain, chronically ill appearing Cardiovascular: systolic murmur (II/ at sternum), No irregularly irregular, No tachycardia, No edema Respiratory: no respiratory distress, no rales or rhonchi, clear to auscultation Gastrointestinal: normoactive bowel sounds, soft, non-tender abdomen, no palpable masses Neurologic: facial droop (R facial palsy), No AAOx3 (AAOx2 (person and place)), No weakness (motor 5/5 R 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
--- NOTE | 2018-02-25 16:41 | ASMTCMCOM ---
CM Note CM Note Notes: [facility] case loader operator Katie came to [facility] to evaluate patient for SNF placement and approved her. [facility] accepted. When I called patient's daughter to relay the news, she became upset and said that they did not want her to leave today but rather tomorrow. She felt that we were lacking compassion in her mother's care. She subsequently spoke with Genet in admissions at [facility] and requested that patient be transferred there at 11AM tomorrow. I informed hospitalist and also informed my life enrichment manager Neydarebel Marie that patient's daughter was upset. Neyda will contact her. We will plan for an AM discharge to [facility] tomorrow. Date Signed: 02/25/2018 04:41 PM Electronically Signed By:Melly Chao RN
[2018-02-25] MEDS: MELATONIN 3 MG TAB PO SCH (20:58)
[2018-02-26 04:12] VITALS: BP 129/54
[2018-02-26] MEDS: CHOLECALCIFEROL VIT D3 2,000 UNITS TAB/CAP PO SCH (08:09)
[2018-02-26] MEDS: IRBESARTAN 150 MG TAB PO SCH (08:09)
[2018-02-26] MEDS: amLODIPine BESYLATE 5 MG TAB PO SCH (08:09)
[2018-02-26] MEDS: SENNOSIDES/DOCUSATE SODIUM TAB PO SCH (08:09)
[2018-02-26] MEDS: CLOPIDOGREL BISULFATE 75 MG TAB PO SCH (08:09)
[2018-02-26] MEDS: ATORVASTATIN CALCIUM 10 MG TAB PO SCH (08:10)
[2018-02-26] MEDS: ENOXAPARIN 40 MG/0.4 ML SYR SC SCH (08:10)
--- NOTE | 2018-02-26 10:23 | PDIAF ---
- Diagnosis Diagnosis: Vascular dementia, chronic urinary urgency Code Status: Full Code - Medication Management Discharge Medications: Medications to Continue on Transfer Cholecalciferol Vit D3 [Vitamin D3 2000 units] 5,000 units PO DAILY 05/21/13 [ Last Taken 05/24/13] Irbesartan [Avapro 150 mg (*)] 300 mg PO DAILY 05/21/13 [Last Taken 05/24/13 09: 00] Acetaminophen [Tylenol 325mg (*)] 650 mg PO Q4HRS PRN tab 12/26/17 [Last Taken 12/21/17 19:42] Clopidogrel Bisulfate [Plavix (*)] 75 mg PO DAILY tab 12/26/17 [Last Taken 08:38] Sennosides/Docusate Sodium [Senokot-S] 1 tab PO BID tab 01/12/18 [Last Taken Unknown] Atorvastatin Calcium [Lipitor 10 mg (*)] 10 mg PO DAILY tab 02/26/18 [Last Taken Unknown] Melatonin [Melatonin 3 MG (*)] 6 mg PO HS #0 tab 02/26/18 [Last Taken Unknown] amLODIPine BESYLATE [Norvasc 5 mg (*)] 10 mg PO DAILY tab 02/26/18 [Last Taken Unknown] Career Coach Antibiotics: NA Discharge Medications: Refer to the Discharge Home Medication list for PRN reason. PICC Care - Routine: N/A - Orders Services needed: Registered Nurse, Certified Locomotive Lubricating Systems Clerk, Master Director General , Physical Therapy, Occupational Therapy, Speech Language Pathologist Isolation Type: None Oxygen: NA Diet Texture: Dysphagia 1 - Pureed, Thin Liquids, Meds Whole w/Liquids, Meds Whole in Puree Weigh Patient: weekly Orta: Not applicable Additional Instructions: Please perform scheduled voiding (urinary) every 2 hours during daytime, as patient has chronic urinary frequency/urgency which is NOT indicative of a UTI, but is her baseline. Scheduled voidings help address her symptoms, which she has a difficult time understanding b/c of her vascular dementia and memory impairment. - Follow Up Care Current Providers and Referrals: Alex Zambrano DO [Medical Doctor] - follow up in 2 weeks El Morris MD [Primary Care Provider] - As per Instructions
--- NOTE | 2018-02-26 13:09 | PDDCSUM ---
Discharge Summary Discharge Summary: DISCHARGE SUMMARY FOLLOW-UP ITEMS: Schedule outpatient neurology follow-up appointment DATE OF ADMISSION: 02/21/2018 DATE OF DISCHARGE: 02/26/2018 DISCHARGE DIAGNOSES: 1. Acute on chronic generalized weakness 2. Recent CVA 3. Chronic urinary frequency and urgency 4. Possible Klebsiella urinary tract infection present on admission 5. Chronic encephalopathy secondary to vascular dementia 6. Chronic lower back pain CONSULTATIONS: Palliative PROCEDURES / IMAGING: None CHIEF COMPLAINT: Acute on chronic weakness and inability to complete activities of daily living SUBJECTIVE: Patient is feeling well at time discharge, she denies any pain PHYSICAL EXAM ON DISCHARGE: Systolic blood pressure is 130, heart rate 50, afebrile overnight, satting well on room air, alert awake oriented times 1 to person only, follows commands, lungs are clear to auscultation, heart rhythm regular with a 2 6 systolic murmur at the sternum LABS ON DISCHARGE: Creatinine 0.8, potassium 3.8, liver panel unremarkable, TSH 2.35 HOSPITAL COURSE BY PROBLEM: The patient presented with acute on chronic weakness and inability to perform activities of daily living after she had been transition home 2 days prior from a group home facility. The patient had been experiencing these challenges at the group home facility, but she had had the appropriate care level to serve her needs. Upon returning home, the patient demonstrated inability to complete activities of daily living and her family was unable to assist her with all of her needs. The patient's situation may have been exacerbated by possible Klebsiella urinary tract infection which may have been present on admission, and she received 3 days of appropriate antibiotics during this stay. Her overall functional status did not significantly improve after antibiotics , and the patient remains completely dependent at this time. The patient has a known vascular dementia resulting in chronic encephalopathy following her most recent CVA. Of note, the patient's functional status was worse after she left inpatient rehab then when she started, indicating the patient benefits very little from ongoing therapy. She is being continued on medications for secondary prevention of recurrent CVA, including Plavix, statin, antihypertensives, which have been up titrated during this length of stay. It should also be noted that the patient has chronic urinary symptoms including frequency and urgency which are not secondary to urinary tract infection, but are fairly pervasive to the the patient's overall functioning. We have been working with trial voids every 2 hr in order to provide patient with the reassurance that she requires that she will be able to urinate regularly. She has had bethanechol and peridium treatment in the past without any significant benefit. Palliative care performed a consultation with this patient her family to establish overall goals of care we recommend ongoing palliative care in the outpatient setting. DISCHARGE MEDICATIONS: Please see official discharge medication reconciliation sheet in chart , continue home medications with the up titration of amlodipine to 10 mg daily, addition of atorvastatin 10, continue other medications. DISCHARGE INSTRUCTIONS: Please schedule follow-up with the outpatient neurologist and arrange outpatient palliative care TIME SPENT: Greater than 30 minutes were spent on direct patient care, as well as discharge planning and preparation.
--- NOTE | 2018-02-26 14:21 | ASMTCMCOM ---
CM Note CM Note Notes: Pt DC'd to [facility] today.[place] provided transport at 11:15. Final orders faxed. RN called report. Date Signed: 02/26/2018 02:20 PM Electronically Signed By:Kimi Patton LCSW
--- NOTE | 2018-02-26 14:22 | ASDISCHSUM ---
Discharge Information Plan Status: Medically Cleared to Leave: Discharge Date:02/26/2018 11:07 AM CM D/C Disposition: ADT D/C Disposition:Alf Facility Projected Discharge Date:02/25/2018 11:00 AM Transportation at D/C: Discharge Delay Reason: Follow-Up Date:02/25/2018 11:00 AM Discharge Slot: Final Diagnosis: Placement Information Referral Type:*Care Home/SNF Referral ID:[id number] Provider Name:[facility] Address 1:[address] Address 2: City:[place] Selection Factors: State:[place] Patient Contact Information Contact Name:WILLIAN Relationship:Other Address:[address] City:[place] Alternate Phone: State/Zip Code:[place] [address] Email: Financial Information Financial Class:Medicare Primary Plan Desc:MEDICARE IP PART B ONLY Primary Plan Number:[id number] Secondary Plan Desc:[place] Secondary Plan Number:[id number] Assessment Information LACE LACE Acuity / Level of Answers: No Care: Did the patient have an inpatient admission? Comorbidities - select Answers: Cerebrovascular disease all that apply (CVA, TIA, aneurysms, vasc ular dementia) History of falls Opioid dependence / Chronic pain Other Notes: chronic back pain, depression, frequ ent UTIs # of Emergency department Answers: 1-2 visits in the last 6 months Social determinants Answers: Mental health diagnosis (anxiety, depression, pers onality disorders, etc.) Score: 13 Date Signed: 02/21/2018 11:56 AM Electronically Signed By:Paola Gamez RN [facility] Progress Note CM Note CM Note Notes: Pt presented to the ED via EMS from home for weakness, ongoing UTI symptoms. Pt recently admitted 12/21/17 after having a stroke. Pt was d/c'd 12/26 to [facility] In Rehab and then d/c'd on 01/13 to a LTC bed at [facility] ([phone]). Pt recently discharged from [facility] on 02/19 at 1900 to home per patient and family's request due to pt's not doing well without pt there. Pt and live in a private home in [place] w/their daughter, Reema Chavez ([phone] or [phone]) and son-in-law, Franny Chavez ([phone],c: [phone]) as primary caregivers). This CM spoke w/ son-in-law Franny and he says that since patient returned home two days ago (without any homecare assistance in place), they have been struggling to be able to care for her and feel that she needs to return to [facility] or another facility to receive a higher level of care. There is also concern about their ability to care for pt's if pt is not living at home. Franny says patient has had multiple falls in the past two days and also presents very confused or disoriented; Franny says they take pt to the bathroom every 2 hrs but she doesn't always urinate but then continues to perseverate on needing to urinate; pt will remove her depends, be walking around the house naked but then is adamant that she is not naked and doesn't realize she was just incontinent of either urine and/or stool. Pt had [facility] before her stroke in December; pt's PCP is Dr Morris. Franny says they would love for patient to get into [facility] but has also been satisfied w/[facility] . Pt has Medicare part B only and Medicaid. Anticipate pt will need to dc to SNF on LTC. CM to follow. Date Signed: 02/21/2018 12:17 PM Electronically Signed By:Paola Gamez RN [facility] Progress Note CM Note CM Note Notes: 02/22/2018 Case Management Note Discussed case with Dr. Swift who is anticipating a SNF rehab discharge. Faxed referral to [facility]. Spoke with Talia from [facility], per Talia pt d/c from facility on 02/19/2018. Awaiting PT morris to send to [facility]. Case Management to assess on Friday if appropriate to apply for [facility] 100 and adjunct faculty for medical terminology medicaid application. Case Management d/c poc: to be determined. Case Management to follow. Date Signed: 02/22/2018 01:43 PM Electronically Signed By:Alize Teresa RN [facility] Progress Note CM Note CM Note Notes: Spoke with patient's daughter, Carmen who is concerned that her mother needs long-term care in a SNF. She reported [facility]. I did not have an opportunity to check this today so we still need to confirm. The family was asking about facilities and wanted me to send out referrals which I did to the facilities they were interested in. They are not sure they want their mother in [facility] on a long-term basis. CM will follow. Date Signed: 02/23/2018 05:26 PM Electronically Signed By:Sarah Daly LCSW [facility] Progress Note CM Note CM Note Notes: I spoke with Jesse at [facility] - patient needs a re-eval in order to go to SNF. I completed and faxed at [facility]. I spoke with patient's daughter and son in law (he is MDPOA) on phone re: discharge planning. They understand that patient may not be an easy placement d/t Medicaid. We have already received some rejections. I explained that we could refer her to various facilities, which I have done. Regarding the facility she came from - [facility] - I advised the patient's family to speak with them directly if they'd like her to go back. The facility has suggested that they do not think they have an appropriate care level for patient. Family is not sure yet if they want to consider [facility] again, so will wait to hear back from other facilities. Case Management will follow. Date Signed: 02/24/2018 12:15 PM Electronically Signed By:Melly Chao RN [facility] Progress Note CM Note CM Note Notes: Spoke with Genet at [facility]. Patient's family went for a tour/meeting and have filled out some preliminary paperwork. Per Genet, patient's adjunct faculty for medical terminology Medicaid is with [facility] and will need to be switched to [place]. We are also waiting on [facility] approval. Case Management will continue to follow. Date Signed: 02/24/2018 01:49 PM Electronically Signed By:Melly Chao RN [facility] CM Progress Note CM Note CM Note Notes: [facility] returned case inspector Katie came to [facility] to evaluate patient for SNF placement and approved her. [facility] accepted. When I called patient's daughter to relay the news, she became upset and said that they did not want her to leave today but rather tomorrow. She felt that we were lacking compassion in her mother's care. She subsequently spoke with Genet in admissions at [facility] and requested that patient be transferred there at 11AM tomorrow. I informed hospitalist and also informed my online affiliate marketing manager Neyda Ledo that patient's daughter was upset. Neyda will contact her. We will plan for an AM discharge to [facility] tomorrow. Date Signed: 02/25/2018 04:41 PM Electronically Signed By:Melly Chao RN [facility] CM Progress Note CM Note CM Note Notes: Pt DC'd to [facility] today.[employer] provided transport at 11:15. Final orders faxed. JAROD called report. Date Signed: 02/26/2018 02:20 PM Electronically Signed By:Kimi Patton LCSW Intervention Information Intervention Type:Post Acute Communication Date of Service:02/21/2018 12:17 PM Patient Type:Inpatient Staff Member:JAROD Gamez, Paola Hours:0.25 Discipline:Mirror Painter Severity: Comment: Intervention Type:[place]-Refused Date of Service:02/22/2018 01:50 PM Patient Type:Observation Staff Member:JAROD Teresa, [facility] Hours: Discipline: Severity: Comment:Pt refused to sign. Sent case managem ent from the room "so I can sleep".
== END 2018-02-26 11:07 | DRG 948 ==
LOC: EDUNIT# → UNDOADMOB 11:25 → INTOOBSV 11:25 → F1N 11:45 → OBSVTOIN 02-22 13:30 → INTOOBSV 02-22 13:30 → UNDODISIN 02-26 11:07
PROVIDERS: ADMIT Internal Medicine; ATTEND Internal Medicine
DX: R53.1 Weakness (principal); I69.898 Other sequelae of other cerebrovascular disease; F01.50 Vascular dementia, unspecified severity, without behavioral disturbance, psychotic disturbance, mood disturbance, and anxiety; Z79.02 Long term (current) use of antithrombotics/antiplatelets; N39.0 Urinary tract infection, site not specified; B96.1 Klebsiella pneumoniae [K. pneumoniae] as the cause of diseases classified elsewhere; M54.5 Low back pain
CPT/HCPCS: 84484-PO; 92610-GN; 96365; 97116-GP; 97162-GP; 97166-GO; 97530-GO; 97530-GP; 97535-GO; G0378; G8978-GP-CK; G8979-GP-CI; G8987-GO-CL; G8988-GO-CJ; G8996-GN-CI; G8997-GN-CI; G8998-GN-CI; J0696; J1650

== ENCOUNTER 2018-08-30 21:42 | Inpatient (IN) | payer OTHER, MEDICAID ==
[2018-08-30 22:03] LABS: PLATELET COUNT 238 10^3/uL (150-400)
--- NOTE | 2018-08-30 22:34 | EDPHY ---
H & P Stated Complaint: Palliative care from [facility] 2 seizures. Received versed 2.5 and zofran Time Seen by Provider: 08/30/18 22:17 HPI/ROS: HPI The patient presents with seizure, brought in by ambulance from [facility] where she resides. She had a witnessed episode that was tonic colonic lasting for several minutes at [facility] observed by the staff there. 911 was called. During her transfer she had a 2nd seizure which lasted for several minutes improved with 2.5 mg of Versed. It is unclear if there was a lucid. In between these 2 events. This was associated with vomiting. The patient has no prior history of seizure. 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 REVIEW OF SYSTEMS 10 systems were reviewed and negative with the exception of the elements mentioned in the history of present illness. 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, chronic encephalitis with vascular dementia Soc Hx: Resides at [facility], she has paperwork stating that she is a full code PHYSICAL General Appearance: Alert, no distress Eyes: Pupils equal and round no pallor or injection ENT, Mouth: Mucous membranes moist Respiratory: There are no retractions, lungs are clear to auscultation Cardiovascular: Regular rate and rhythm Gastrointestinal: Abdomen is soft and non-tender, no masses, bowel sounds normal Neurological: Alert, nonverbal, tracks, left arm held in flexion Skin: Warm and dry, no rashes Musculoskeletal: Neck is supple non tender Extremities: symmetrical, full range of motion Psychiatric: there is no agitation Source: Family, EMS, Old records Exam Limitations: Clinical condition - Medical/Surgical History Hx Asthma: No Hx Chronic Respiratory Disease: No Hx Diabetes: No Hx Cardiac Disease: Yes Hx Renal Disease: No Hx Cirrhosis: No Hx Alcoholism: No Hx HIV/AIDS: No Hx Splenectomy or Spleen Trauma: No Other PMH: Nontraumatic Subarachnoid hemorrhage, weakness, encephalopathy, insomnia, hyperlipidemia dysphagia, scoliosis; hypertension; spinal surgery; bilateral knee surgery; vertigo; chronic pain (back), general weakness, implanted Linq monitor into chest 12/26/17 - Social History Smoking Status: Never smoked Constitutional: Initial Vital Signs Temperature (C) 36.7 C 08/30/18 21:47 Heart Rate 84 08/30/18 21:47 Respiratory Rate 33 H 08/30/18 21:47 Blood Pressure 150/100 H 08/30/18 21:47 O2 Sat (%) 94 08/30/18 21:47 O2 Delivery Mode Room Air Allergies/Adverse Reactions: Sulfa (Sulfonamide Antibiotics) Allergy (Unknown, Verified 02/21/18 10:17) Unknown Home Medications: Medication Instructions Recorded Cholecalciferol Vit D3 [Vitamin D3 5,000 units PO DAILY 05/21/13 2000 units] Irbesartan [Avapro 150 mg (*)] 300 mg PO DAILY 05/21/13 Acetaminophen [Tylenol 325mg (*)] 650 mg PO Q4HRS PRN tab 12/26/17 Clopidogrel Bisulfate [Plavix (*)] 75 mg PO DAILY tab 12/26/17 Sennosides/Docusate Sodium 1 tab PO BID tab 01/12/18 [Senokot-S] Atorvastatin Calcium [Lipitor 10 10 mg PO DAILY tab 02/26/18 mg (*)] Melatonin [Melatonin 3 MG (*)] 6 mg PO HS #0 tab 02/26/18 CRANBERRY 300 mg 08/30/18 Seroquel 12.5 mg 08/30/18 Zoloft 100mg (*) 100 mg 08/30/18 amLODIPine BESYLATE 10 mg 08/30/18 traMADol 25 mg 08/30/18 Medical Decision Making - Diagnostics Imaging Results: Imaging Impressions Head CT 08/30/18 21:52 Impression: 1. Large area of encephalomalacia could act as a seizure focus. 2. Negative for intracranial hemorrhage. 3. Elderly brain with atrophy and probable white matter small vessel disease. 4. See above report for additional findings. Results called and discussed with Dr. Sol on 08/30/2018 at 22:18. Imaging: Discussed imaging studies w/ process control supervisor Radiologist, I viewed and interpreted images myself Differential Diagnosis: 78-year-old female with history of left-sided occipital CVA presents with 2 seizures today. Patient received Versed in the ambulance and is now quite sedate. This could be related to postictal state. CT scan of her head was performed which showed large amount of encephalomalacia , likely cause of her seizure. The patient was observed. Patient's labs were checked and were unremarkable. I consulted with [facility] who recommended Keppra load and initiating Keppra for her. Given her CT findings she does not need MRI or EEG as cause of seizures fairly obvious in her case. The patient was observed for approximately 5 hr in the emergency department and remained quite sedate. Her daughter came to the bedside and we discussed her case. Daughter reports that she actually had multiple seizures today at her long term according to the nurses that the daughter spoke with. This is more concerning to me. The patient at baseline answers basic questions though Bruneian is not her primary language. She needs help with any changes in position. Her daughter asks what her prognosis is as she is quite concerned that she is near the end of her life. I explained that this is likely true. We did discuss the patient' s MOST form which states that she is full code with all interventions. I explained to her daughter that this may not be appropriate given her quite ill state. We agree that she should be DNR and daughter does not want her to have chest compressions ir any invasive measures at this time. She is interested in palliative care or hospice for her. The patient continued to be quite sedate and did not return to her baseline after multiple hours in the emergency department. Thus, I will admit her to Dr. Brennan the hospitalist hand expansion envelope maker. - Data Points Laboratory Results: Laboratory Results 08/30/18 21:30 08/30/18 21:30 08/31/18 08/30/18 08/30/18 01:55 21:30 21:30 WBC 8.07 10^3/uL 10^3/uL (3.80-9.50) RBC 5.04 10^6/uL 10^6/uL (4.18-5.33) Hgb 14.8 g/dL g/dL (12.6-16.3) Hct 45.1 % % (38.0-47.0) MCV 89.5 fL fL (81.5-99.8) MCH 29.4 pg pg (27.9-34.1) MCHC 32.8 g/dL g/dL (32.4-36.7) RDW 13.3 % % (11.5-15.2) Plt Count 238 10^3/uL 10^3/uL (150-400) MPV 9.3 fL fL (8.7-11.7) Neut % (Auto) 44.2 % % (39.3-74.2) Lymph % (Auto) 42.4 % % (15.0-45.0) Castro % (Auto) 11.8 % % (4.5-13.0) Eos % (Auto) 1.2 % % (0.6-7.6) Baso % (Auto) 0.2 % L % (0.3-1.7) Nucleat RBC Rel Count 0.0 % % (0.0-0.2) Absolute Neuts (auto) 3.56 10^3/uL 10^3/uL (1.70-6.50) Absolute Lymphs (auto) 3.42 10^3/uL H 10^3/uL (1.00-3.00) Absolute Monos (auto) 0.95 10^3/uL H 10^3/uL (0.30-0.80) Absolute Eos (auto) 0.10 10^3/uL 10^3/uL (0.03-0.40) Absolute Basos (auto) 0.02 10^3/uL 10^3/uL (0.02-0.10) Absolute Nucleated RBC 0.00 10^3/uL 10^3/uL (0-0.01) Immature Gran % 0.2 % % (0.0-1.1) Immature Gran # 0.02 10^3/uL 10^3/uL (0.00-0.10) Sodium 136 mEq/L mEq/L (135-145) Potassium 4.4 mEq/L mEq/L (3.5-5.2) Chloride 100 mEq/L mEq/L (97-110) Carbon Dioxide 18 mEq/l L mEq/l (22-31) Anion Gap 18 mEq/L H mEq/L (6-14) BUN 17 mg/dL mg/dL (7-23) Creatinine 1.1 mg/dL H mg/dL (0.6-1.0) Estimated GFR 48 Glucose 116 mg/dL H mg/dL (70-100) Calcium 11.0 mg/dL H mg/dL (8.5-10.4) Phosphorus 3.6 mg/dL mg/dL (2.5-4.5) Urine Color YELLOW Urine Appearance CLEAR Urine pH 6.0 (5.0-7.5) Ur Specific [place] 1.006 (1.002-1.030) Urine Protein NEGATIVE (NEGATIVE) Urine Ketones NEGATIVE (NEGATIVE) Urine Blood NEGATIVE (NEGATIVE) Urine Nitrate NEGATIVE (NEGATIVE) Urine Bilirubin NEGATIVE (NEGATIVE) Urine Urobilinogen NEGATIVE EU EU (0.2-1.0) Ur Leukocyte Esterase NEGATIVE (NEGATIVE) Urine Glucose NEGATIVE (NEGATIVE) Medications Given: Sodium Chloride (Ns) 1,000 mls @ 75 mls/hr IV CONT JANEEN Stop: 02/27/19 02:59 Last Admin: 08/31/18 05:14 Dose: 1,000 mls Discontinued Medications Levetiracetam (Keppra (Premix)) 100 mls @ 400 mls/hr IV EDNOW ONE Stop: 08/30/18 22:54 Last Admin: 08/30/18 23:00 Dose: 100 mls Sodium Chloride (Ns) 500 mls @ 1,500 mls/hr IV ONCE ONE Stop: 08/31/18 01:46 Last Admin: 08/31/18 01:29 Dose: 500 mls Departure - Departure Disposition: [facility] Inpatient Acute Clinical Impression: New onset seizure, History of CVA (cerebrovascular accident) Condition: Fair
[2018-08-30] MEDS ORDERED: levETIRAcetam 1000MG/NACL 100 ML IV ONE (22:40)
[2018-08-31] MEDS ORDERED: NS 500 ML IV ONE (01:27)
[2018-08-31] MEDS ORDERED: ACETAMINOPHEN 650 MG SUPP PR PRN (02:51)
[2018-08-31] MEDS ORDERED: ONDANSETRON 4 MG/2 ML VIAL IVP PRN (02:51)
[2018-08-31] MEDS ORDERED: LORazepam 2 MG/ML INJ IVP PRN (02:51)
[2018-08-31] MEDS: NS 1,000 ML IV SCH ×2 (05:14→19:54)
--- NOTE | 2018-08-31 07:23 | PDGENHP ---
History and Physical - Chief Complaint Seizure - History of Present Illness Source-patient is currently postictal and confused. She is able to open her eyes but she is nonverbal at this time. EMR was reviewed and case discussed with ED provider. HPI-this is a 78-year-old female with past medical history significant for vascular dementia, CVA with history of breanne-neglect, aphasia, dysphagia who is essentially wheelchair bound, HTN, HLD who presents emergency department today from [facility] via EMS after patient had a witnessed seizure for several minutes. Seizure was reported to be tonic clonic per report. On route patient again sustained a tonic-clonic seizure and was given 2.5 mg of Versed. Since that time patient has remained minimally responsive and sedated. I discussed the case with Dr. Kristina luque who spoke with the patient's daughter. At baseline patient does have some aphasia. Her primary language however is not [place]ian but she is able to respond and understand. Patient is essentially wheelchair bound and has had progressive decline in her symptoms. Daughter requests hospice evaluation. History Information - Allergies/Home Medication List Allergies/Adverse Reactions: Sulfa (Sulfonamide Antibiotics) Allergy (Unknown, Verified 02/21/18 10:17) Unknown Home Medications: Cholecalciferol Vit D3 [Vitamin D3 2000 units] 5,000 units PO DAILY 05/21/13 [ Last Taken 05/24/13] Irbesartan [Avapro 150 mg (*)] 300 mg PO DAILY 05/21/13 [Last Taken 05/24/13 09: 00] CRANBERRY 300 mg 08/30/18 [Last Taken Unknown] Seroquel 12.5 mg 08/30/18 [Last Taken Unknown] Zoloft 100mg (*) 100 mg 08/30/18 [Last Taken Unknown] amLODIPine BESYLATE 10 mg 08/30/18 [Last Taken Unknown] traMADol 25 mg 08/30/18 [Last Taken Unknown] I have personally reviewed and updated: family history, medical history, social history, surgical history - Past Medical History CVA (Left thalamic and occipital CVA with resultant right-sided breanne-neglect, hemiparesis), hypertension Additional medical history: Depression. Recurrent urinary tract infections. Urinary retention and frequent urinary symptoms. Aortic insufficiency. HLD. encephalopathy related to vascular dementia. hx CVA with right hemineglect, aphasia, dysphagia. vertigo. chronic pain. generalized weakness and debility. SAH. HTN, hLD - Surgical History Reports: no pertinent surgical hx Additional surgical history: spine. bilateral knee. LINQ 12/2017 - Family History Additional family history: parents. Patient comes from [facility] - Social History Smoking Status: Never smoked Alcohol Use: None Drug Use: None Additional social history: resides at [facility]. COR - after discussion between Dr. Sol and patient's daughter she requests persuing comfort care. pt MOST lists full cor but will be changed to DNR/DNI 08/31/18 Review of Systems Review of Systems: Unable to obtain due to patient and altered mental status. Physical Exam Physical Exam: Selected Entries 08/30/18 21:47 Blood Pressure Automatic Method Heart Rate 84 Respiratory 33 H Rate O2 Sat (%) 94 Temperature (C) 36.7 C Blood Pressure 150/100 H Mean Arterial 116 H Pressure (MAP) O2 Delivery Room Air Mode Temperature Axillary Source Temp Pulse Resp BP Pulse Ox 36.6 C 60 12 154/57 H 94 08/31/18 04:29 08/31/18 04:29 08/31/18 04:29 08/31/18 04:29 08/31/18 04:29 Constitutional: no apparent distress, chronically ill appearing, other (NAD. Frail elderly appearing female is lying quietly in bed she is snoring softly. She does open her eyes to name but then returns back to sleep.) Eyes: anicteric sclera, other (Limited exam due to patient's somnolence), No scleral injection Ears, Nose, Mouth, Throat: poor dentition (Edentulous.), dry mucous membranes, other (No nasal discharge.) Cardiovascular: regular rate and rhythym, no murmur, rub, or gallop, other ( Distant heart sounds.), No edema Peripheral Pulses: 1+: dorsalis-pedis (R), dorsalis-pedis (L) Respiratory: no respiratory distress, no rales or rhonchi, clear to auscultation , reduced air movement (Diminished bibasilarly.), other (Patient is snoring softly.), No inspiratory crackles Gastrointestinal: soft, non-tender abdomen, other (Hypoactive bowel sounds), No distension Genitourinary: no bladder tenderness, No white in urethra Skin: warm, normal color, no rashes or abrasions Musculoskeletal: other (Limited due to patient altered mental status and somnolence.) Neurologic: other (Limited exam as above.) Psychiatric: other (Unable to assess.) Lab Data & Imaging Review 08/30/18 21:30 08/30/18 21:30 WBC 8.07 10^3/uL (3.80-9.50) 08/30/18 21: RBC 5.04 10^6/uL (4.18-5.33) 08/30/18 21: Hgb 14.8 g/dL (12.6-16.3) 08/30/18 21: Hct 45.1 % (38.0-47.0) 08/30/18 21: MCV 89.5 fL (81.5-99.8) 08/30/18 21: MCH 29.4 pg (27.9-34.1) 08/30/18 21: MCHC 32.8 g/dL (32.4-36.7) 08/30/18 21: RDW 13.3 % (11.5-15.2) 08/30/18 21: Plt Count 238 10^3/uL (150-400) 08/30/18 21: MPV 9.3 fL (8.7-11.7) 08/30/18 21: Neut % (Auto) 44.2 % (39.3-74.2) 08/30/18 21: Lymph % (Auto) 42.4 % (15.0-45.0) 08/30/18: [place] % (Auto) 11.8 % (4.5-13.0) 08/30/18 21: Eos % (Auto) 1.2 % (0.6-7.6) 08/30/18: Baso % (Auto) 0.2 % (0.3-1.7) L 08/30/18: Nucleat RBC Rel Count 0.0 % (0.0-0.2) 08/30/18 21: Absolute Neuts (auto) 3.56 10^3/uL (1.70-6.50) 08/30/18 21: Absolute Lymphs (auto) 3.42 10^3/uL (1.00-3.00) H 08/30/18 21:30 Absolute Monos (auto) 0.95 10^3/uL (0.30-0.80) H 08/30/18 21:30 Absolute Eos (auto) 0.10 10^3/uL (0.03-0.40) 08/30/18 21:30 Absolute Basos (auto) 0.02 10^3/uL (0.02-0.10) 08/30/18 21:30 Absolute Nucleated RBC 0.00 10^3/uL (0-0.01) 08/30/18 21:30 Immature Gran % 0.2 % (0.0-1.1) 08/30/18 21:30 Immature Gran # 0.02 10^3/uL (0.00-0.10) 08/30/18 21:30 Sodium 136 mEq/L (135-145) 08/30/18 21:30 Potassium 4.4 mEq/L (3.5-5.2) 08/30/18 21:30 Chloride 100 mEq/L (97-110) 08/30/18 21:30 Carbon Dioxide 18 mEq/l (22-31) L 08/30/18 21:30 Anion Gap 18 mEq/L (6-14) H 08/30/18 21:30 BUN 17 mg/dL (7-23) 08/30/18 21:30 Creatinine 1.1 mg/dL (0.6-1.0) H 08/30/18 21:30 Estimated GFR 48 08/30/18 21:30 Glucose 116 mg/dL (70-100) H 08/30/18 21:30 Calcium 11.0 mg/dL (8.5-10.4) H 08/30/18 21:30 Phosphorus 3.6 mg/dL (2.5-4.5) 08/30/18 21:30 Urine Color YELLOW 08/31/18 01:55 Urine Appearance CLEAR 08/31/18 01:55 Urine pH 6.0 (5.0-7.5) 08/31/18 01:55 Ur Specific [place] 1.006 (1.002-1.030) 08/31/18 01:55 Urine Protein NEGATIVE (NEGATIVE) 08/31/18 01:55 Urine Ketones NEGATIVE (NEGATIVE) 08/31/18 01:55 Urine Blood NEGATIVE (NEGATIVE) 08/31/18 01:55 Urine Nitrate NEGATIVE (NEGATIVE) 08/31/18 01:55 Urine Bilirubin NEGATIVE (NEGATIVE) 08/31/18 01:55 Urine Urobilinogen NEGATIVE EU (0.2-1.0) 08/31/18 01:55 Ur Leukocyte Esterase NEGATIVE (NEGATIVE) 08/31/18 01:55 Urine Glucose NEGATIVE (NEGATIVE) 08/31/18 01:55 Imaging Review: CT Brain (Without Contrast) History: Altered mental status and possible seizure in a 78-year-old female.. Technique: Axial computed tomographic images of the brain are obtained from the base to the vertex without contrast. Images are obtained at 5 mm thickness and reformatted at 1.5 mm. Sagittal and coronal reformations are performed and the study is reviewed at multiple window/level settings. Comparison to the prior study February 21, 2018. Dose reduction techniques were utilized. Findings: Ventricles, cisterns, and sulci are widened consistent with atrophy. There is no hydrocephalus, midline shift/herniation, or epidural/subdural hematoma. Again noted is a large area of encephalomalacia in the left posterior parietal/occipital lobe. This has not changed significantly and is consistent with residua of prior infarct No intraparenchymal hemorrhage or mass effect is identified. Hypodensities are noted in the periventricular and subcortical white matter bilaterally. No acute cortical ischemia is identified. Cerebrovascular atherosclerosis is identified. Bone windows demonstrate no displaced fractures. Paranasal sinuses and mastoid air cells are clear. Impression: 1. Large area of encephalomalacia could act as a seizure focus. 2. Negative for intracranial hemorrhage. 3. Elderly brain with atrophy and probable white matter small vessel disease. 4. See above report for additional findings. Results called and discussed with Dr. Sol on 08/30/2018 at 22:18. Dictated By: Asim Ayala MD Visualized and Interpreted imaging results: Yes Assessment & Plan Assessment: This is a 78-year-old female with past medical history significant for vascular dementia, CVA with history of breanne-neglect, aphasia, dysphagia who is essentially wheelchair bound, HTN, HLD who presents emergency department today from [facility] via EMS after patient had a witnessed seizure # seizure, new onset - likely related to patient's history of CVA. CT head was negative for any acute bleed but it did show her persistent encephalomalacia. She does not appear to be toxic. Electrolytes appear to be adequate. She does have a slight anion gap at this is likely is related to her seizure. Patient received 2.5 mg Versed and has somnolent and encephalopathic since that time likely postictal. [facility] was consulted from the emergency department in the recommended loading dose of Keppra 1000 mg to continue with this. They did not recommend proceeding with MRI or any additional studies. Patient would not be able to swallow pills as a continued therapy so will leave IV twice daily for now. Daughter has requested that patient be evaluated for hospice back at [facility]. Will hold off on further Neurology consultation. Ativan will be available p.r.n. Seizure precautions. # acute renal insufficiency - mildly elevated creatinine from baseline. Likely related to dehydration as patient does appear clinically dry. IV fluids for gentle hydration to continue. Patient received 500 cc in the ED. chronic medical issues #benign essential HTN - hydralazine p.r.n. #HLD - holding medications. #vascular dementia - if patient mentation improves to baseline Seroquel and Zoloft. #hx CVA with right hemineglect, aphasia, dysphasia - NPO status at this time - holding Plavix FEN - IVF overnight. Electrolytes adequate did not require placement. NPO status at this time pending patient's returned to her baseline in setting of a history of aphasia. PPX-SCDs. Holding anticoagulation. Cor status-changed to DNR DNI. Patient previously a full code on her most form. Daughter has requested hospice evaluation. Disposition-patient admitted to observation status on [facility] floor.
[2018-08-31] MEDS: levETIRAcetam 750 MG in NS 100 ML IV SCH ×2 (10:35→22:39)
--- NOTE | 2018-08-31 12:20 | PDMN ---
Medical Necessity Medical necessity: [facility] M327 Seizure: 78 yo w/ witnessed seizure (new onset) x2, post-ictal, non-verbal, confused. Started on IV anti-seizure meds as unable to take PO. IVF. Daughter requesting hospice eval. Meets [facility] IP criteria for new onset seizure w/o return to baseline neuro fx w/in 30min post seizure. HX vascular dementia, CVA with history of breanne-neglect, aphasia, dysphagia who is essentially wheelchair bound, HTN, HLD
--- NOTE | 2018-08-31 13:34 | HOSPPROG ---
Hospitalist Progress Note Assessment/Plan: 78 yo F w vascular dementia, R sided weakness, L sided encephalomalacia here w seizure daughter has requested hospice eval I am trying to get in touch w her Subjective: sleping but responds to voice. incontinent of stool Objective: Vital Signs Temp Pulse Resp BP Pulse Ox 36.6 C 64 15 168/85 H 94 08/31/18 11:31 08/31/18 11:31 08/31/18 11:31 08/31/18 11:31 08/31/18 11:31 08/30/18 08/31/18 09/01/18 05:59 05:59 05:59 Intake Total 690 Balance 690 ICD10 Worksheet Patient Problems: Problems Problem Status Onset History of CVA (cerebrovascular accident) Acute New onset seizure Acute Diarrhea Acute Pre-syncope Acute Primary osteoarthritis of left knee Acute Primary osteoarthritis of one knee Acute UTI (urinary tract infection) Acute Weakness Acute
--- NOTE | 2018-08-31 17:00 | ASMTCASEMG ---
Living Arrangements What is your living Answers: With Other (Not Family) arrangement? Who do you live with? Type Of Residence What kind of residence do Answers: [facility] Facility you live in? Type of Residence Facility Name Notes: Patient lives at [facility] Discharge Plan Comments Coordination Status Comments Notes: Patient is a 78yo female who has a past medical hx of vascular dementia who came from [facility] via EMS after patient had a witnessed seizure. Patient has been admitted OBS for new onset seizure and acute renal insufficiency. [employer] has been ordered. Hospice eval has also been ordered. Family has been conflicted about hospice. Dr. Adams to meet with the family to answer questions and review options. D/C plan TBD. CM will follow. Date Signed: 08/31/2018 04:59 PM Electronically Signed By:Sarah Daly LCSW
[2018-09-01] MEDS: levETIRAcetam 750 MG in NS 100 ML IV SCH (08:17)
[2018-09-01] MEDS: NS 1,000 ML IV SCH (08:18)
--- NOTE | 2018-09-01 15:03 | HOSPPROG ---
Hospitalist Progress Note Assessment/Plan: 78 yo F w vascular dementia, R sided weakness, L sided encephalomalacia here w seizure plan of care: daughter considering hospice- meeting being set up she had this debilitating stroke 12/19 w poor quality of life since seizure: on keppra no clear etiology although large encephalomalacia could be cause code: dnr htn: holding meds given above bp modestly elevated depression: restart meds dispo: inpt Subjective: spoke w daughter at length yesterday- she is inertested in meeting w hospice, although not certain it is right for her mother. Objective: Vital Signs Temp Pulse Resp BP Pulse Ox 36.9 C 77 14 154/83 H 96 09/01/18 08:07 09/01/18 08:07 09/01/18 08:07 09/01/18 08:07 09/01/18 08:07 08/31/18 09/01/18 09/02/18 05:59 05:59 05:59 Intake Total 690 1798 Output Total 1300 Balance 690 498 - Physical Exam Constitutional: no apparent distress, appears nourished Eyes: PERRL, anicteric sclera Ears, Nose, Mouth, Throat: moist mucous membranes, hearing normal Cardiovascular: regular rate and rhythym, no murmur, rub, or gallop Respiratory: no respiratory distress, no rales or rhonchi Gastrointestinal: normoactive bowel sounds, soft, non-tender abdomen Genitourinary: no bladder fullness, No white in urethra Skin: warm, normal color Musculoskeletal: other (sided weakness), No full muscle strength Neurologic: weakness, No AAOx3, No sensation intact bilaterally Psychiatric: No interacting appropriately ICD10 Worksheet Patient Problems: Problems Problem Status Onset History of CVA (cerebrovascular accident) Acute New onset seizure Acute Diarrhea Acute Pre-syncope Acute Primary osteoarthritis of left knee Acute Primary osteoarthritis of one knee Acute UTI (urinary tract infection) Acute Weakness Acute
--- NOTE | 2018-09-01 15:46 | ASMTCMCOM ---
CM Note CM Note Notes: I sent a referral to [facility], and Sylvia reached out to patient's daughter Zeina ([phone]). They discussed palliative vs hospice and will meet at [facility] tomorrow at 0900 for a formal eval. Per Sylvia, patient's daughter wants to bring her home from but her doesn't. We will let the family decide their goals and then help facilitate. Case Management will follow. Date Signed: 09/01/2018 03:45 PM Electronically Signed By:Melly Chao RN
[2018-09-01] MEDS: QUEtiapine FUMARATE 25 MG TAB PO SCH (17:45)
[2018-09-01] MEDS: SERTRALINE HCL 100 MG TAB PO SCH (17:45)
[2018-09-01] MEDS: ACETAMINOPHEN 325 MG TAB PO PRN (18:11)
[2018-09-01] MEDS: levETIRAcetam 500 MG TAB PO SCH (20:46)
[2018-09-01] MEDS: MELATONIN 3 MG TAB PO SCH (20:46)
[2018-09-01] MEDS: SENNOSIDES 1 TAB PO SCH (20:46)
[2018-09-01] MEDS: traMADol 50 MG TAB PO PRN (20:52)
[2018-09-02] MEDS: levETIRAcetam 500 MG TAB PO SCH ×2 (08:22→22:57)
[2018-09-02] MEDS: SENNOSIDES 1 TAB PO SCH ×2 (08:23→22:57)
[2018-09-02] MEDS: SERTRALINE HCL 100 MG TAB PO SCH (08:23)
[2018-09-02] MEDS: QUEtiapine FUMARATE 25 MG TAB PO SCH (08:23)
[2018-09-02] MEDS: ACETAMINOPHEN 325 MG TAB PO PRN (14:52)
--- NOTE | 2018-09-02 15:00 | ASMTCMCOM ---
CM Note CM Note Notes: Sylvia Montoya met with pt family this morning, providing information on hospice vs. palliative. Pt dghtr now realizes pt has to go back to [facility] due to her needs. Pt will return to , family wants time to decide if it will with hospice or palliative. referral sent in [employer]. confirms what [facility] has on record for insurance: Medicare B only and Medicaid. CM to follow. Date Signed: 09/02/2018 02:59 PM Electronically Signed By:AMADOU Burton
--- NOTE | 2018-09-02 16:47 | HOSPPROG ---
Hospitalist Progress Note Assessment/Plan: 78 yo F w vascular dementia, R sided weakness, L sided encephalomalacia here w seizure plan of care: daughter considering hospice- meeting being set up she had this debilitating stroke 12/19 w poor quality of life since family has elected hospice at [facility] seizure: on keppra no clear etiology although large encephalomalacia could be cause code: dnr htn: holding meds given above bp modestly elevated depression: restart meds dispo: inpt Subjective: per report, family has elected hospice services at [facility] Objective: Vital Signs Temp Pulse Resp BP Pulse Ox 37.0 C 65 16 181/77 H 95 09/02/18 14:57 09/02/18 14:57 09/02/18 14:57 09/02/18 07:15 09/02/18 14:57 09/01/18 09/02/18 09/03/18 05:59 05:59 05:59 Intake Total 1798 550 960 Output Total 1300 850 Balance 498 -300 960 - Physical Exam Constitutional: no apparent distress, appears nourished Eyes: PERRL, anicteric sclera Ears, Nose, Mouth, Throat: moist mucous membranes, hearing normal Cardiovascular: regular rate and rhythym, no murmur, rub, or gallop Respiratory: no respiratory distress, no rales or rhonchi Gastrointestinal: normoactive bowel sounds, soft, non-tender abdomen Genitourinary: No white in urethra Skin: warm, normal color Musculoskeletal: No full muscle strength Neurologic: No AAOx3 Psychiatric: No interacting appropriately ICD10 Worksheet Patient Problems: Problems Problem Status Onset History of CVA (cerebrovascular accident) Acute New onset seizure Acute Diarrhea Acute Pre-syncope Acute Primary osteoarthritis of left knee Acute Primary osteoarthritis of one knee Acute UTI (urinary tract infection) Acute Weakness Acute
[2018-09-02] MEDS: MELATONIN 3 MG TAB PO SCH (22:55)
[2018-09-02] MEDS: traMADol 50 MG TAB PO PRN (22:57)
[2018-09-03] MEDS: ACETAMINOPHEN 325 MG TAB PO PRN ×2 (06:30→12:27)
[2018-09-03] MEDS: SENNOSIDES 1 TAB PO SCH (08:55)
[2018-09-03] MEDS: levETIRAcetam 500 MG TAB PO SCH (08:55)
[2018-09-03] MEDS: QUEtiapine FUMARATE 25 MG TAB PO SCH (08:55)
[2018-09-03] MEDS: traMADol 50 MG TAB PO PRN ×2 (08:56→12:27)
[2018-09-03] MEDS: SERTRALINE HCL 100 MG TAB PO SCH (08:57)
[2018-09-03 10:41] VITALS: BP 118/74
[2018-09-03] MEDS ORDERED: CLOPIDOGREL BISULFATE 75 MG TAB PO SCH (12:30)
--- NOTE | 2018-09-03 14:05 | PDIAF ---
- Diagnosis Diagnosis: SEIZURE Code Status: Do Not Resuscitate - Medication Management Discharge Medications: electronically signed and located in the Home Medication List. - Orders Isolation Type: None Diet Recommendation: no restrictions on diet Diet Texture: Dysphagia 1 - Pureed, [place] Thick Liquids - Follow Up Care Current Providers and Referrals: Patient,NotPresent [Unknown] - As per Instructions
--- NOTE | 2018-09-03 14:05 | PDDCSUM ---
Discharge Summary Discharge Summary: 78 yo F w vascular dementia, R sided weakness, L sided encephalomalacia admitted w seizure and confusion from [facility]. The patient remained encephalopathic and the plan was to discharge with hospice and proxy. However, her cognition is improved today. She is being d/c back to [facility] and hospice will meet with her and her family there. She was started on Keppra. BP was labile and therefore meds have been adjusted. DDX: Hx of debilitating stroke 12/19 w poor quality of life since seizure: on keppra, new med this admission no clear etiology although large encephalomalacia could be cause htn: holding home meds given lability depression: restart home meds Encephalopathy, likely acute on chronic, much improved today. Likely close to her baseline. Exam: NAD ALERT, AWAKE, KNOWS SHE IS IN THE HOSPITAL RRR CTA B S/NT/ND MEDS: SEE MED REC F/U: WITH PCP NEXT WEEK TOTAL TIME SPENT ON D/C IS 35 MINS
--- NOTE | 2018-09-03 14:30 | ASMTDCNOTE ---
Case Management Discharge Discharge Order Complete? Answers: Yes Patient to Obtain Answers: Other Notes: [facility] Medications Transportation Arranged Answers: [facility] Stretcher Case Management Transport Answers: Yes Notes: PCS completed for [facility] Form Complete Faxed Final Orders Answers: Yes Notes: [facility] Agency/Facility Transfer Answers: Yes Notes: [facility] Report Printed & Faxed to Receiving Agency Family Notified Answers: Yes Notes: by phone Discharge Comments Notes: 09/03/2018 Case Management Note [facility] to call report. Notified family. [facility] hospice to meet family at [facility] at 1500 for pt to sign onto Hospice at [facility] arranged stretcher transport through [facility]. Case Management d/c poc: [facility] with [facility] to follow upon discharge. Date Signed: 09/03/2018 02:30 PM Electronically Signed By:Alize Teresa RN
--- NOTE | 2018-09-03 14:31 | ASDISCHSUM ---
Discharge Information Plan Status:SNF Medically Cleared to Leave:09/02/2018 Discharge Date:09/02/2018 CM D/C Disposition:[facility] ADT D/C Disposition:[facility] Projected Discharge Date:09/02/2018 11:00 AM Transportation at D/C:ALS/BLS Discharge Delay Reason: Follow-Up Date:09/02/2018 11:00 AM Discharge Slot: Final Diagnosis: Placement Information Referral Type:*Hospice Referral ID:[id number] Provider Name:[facility] Address 1:[address] [place] [address] Phone Number: Address 2: Fax Number: [facility]:[place] Selection Factors: State:[place] Referral Type:*Fdc/SNF Referral ID:[id number] Provider Name:[facility] Address 1:[address] [facility] Address 2: [facility]:[place] Selection Factors: State:[place] Patient Contact Information Contact Name:WILLIAN Relationship:Other Address:[facility] [address] City:[place] Alternate Phone: State/Zip Code:[place] [address] Email: Financial Information Financial Class:Medicare Primary Plan Desc:MEDICARE IP PART B ONLY Primary Plan Number:[id number] Secondary Plan Desc:[place] Secondary Plan Number:[id number] Assessment Information [facility] Initial CM Assessment Living Arrangements What is your living Answers: With Other (Not Family) arrangement? Who do you live with? Type Of Residence What kind of residence do Answers: [facility]? Type of Residence Facility Name Notes: Patient lives at [facility] Discharge Plan Comments Coordination Status Comments Notes: Patient is a 78yo female who has a past medical hx of vascular dementia who came from [facility] via EMS after patient had a witnessed seizure. Patient has been admitted OBS for new onset seizure and acute renal insufficiency. SECURITIES SETTLEMENT PROCESSOR has been ordered. Hospice eval has also been ordered. Family has been conflicted about hospice. Dr. Adams to meet with the family to answer questions and review options. D/C plan TBD. CM will follow. Date Signed: 08/31/2018 04:59 PM Electronically Signed By:Sarah Daly LCSW LACE LACE Length of stay for Answers: 3 days current admission Acuity / Level of Answers: Yes Care: Did the patient have an inpatient admission? Comorbidities - select Answers: Cerebrovascular disease all that apply (CVA, TIA, aneurysms, vasc ular dementia) Dementia Opioid dependence / Chronic pain Other Notes: HTN; HLD # of Emergency department Answers: 1-2 visits in the last 6 months Social determinants Answers: Mental health diagnosis (anxiety, depression, pers onality disorders, etc.) Score: 19 Date Signed: 09/03/2018 02:31 PM Electronically Signed By:Alize Teresa RN [facility] CM Progress Note CM Note CM Note Notes: I sent a referral to [facility], and Sylvia reached out to patient's daughter Zeina ([phone]). They discussed palliative vs hospice and will meet at [facility] tomorrow at 0900 for a formal eval. Per Sylvia, patient's daughter wants to bring her home from but her doesn't. We will let the family decide their goals and then help facilitate. Case Management will follow. Date Signed: 09/01/2018 03:45 PM Electronically Signed By:Melly Chao RN [facility] CM Progress Note CM Note CM Note Notes: Sylvia javier Montoya met with pt family this morning, providing information on hospice vs. palliative. Pt dghtr now realizes pt has to go back to [facility] due to her needs. Pt will return to , family wants time to decide if it will with hospice or palliative. referral sent in [employer]. confirms what [facility] has on record for insurance: Medicare B only and Medicaid. CM to follow. Date Signed: 09/02/2018 02:59 PM Electronically Signed By:AMADOU Burton Case Management Discharge Plan Note Case Management Discharge Discharge Order Complete? Answers: Yes Patient to Obtain Answers: Other Notes: [facility] Transportation Arranged Answers: [facility] Stretcher Case Management Transport Answers: Yes Notes: PCS completed for [facility] Form Complete Faxed Final Orders Answers: Yes Notes: [facility] Agency/Facility Transfer Answers: Yes Notes: [facility] Report Printed & Faxed to Receiving Agency Family Notified Answers: Yes Notes: by phone Discharge Comments Notes: 09/03/2018 Case Management Note Faxed final orders to [facility]. RN to call report. Notified family. [facility] to meet family at [facility] at 1500 for pt to sign onto [facility] arranged stretcher transport through [facility]. Case Management d/c poc: [facility] to follow upon discharge. Date Signed: 09/03/2018 02:30 PM Electronically Signed By:Alize Teresa RN Intervention Information Intervention Type:*Incorrect Registration Date of Service:08/31/2018 09:53 AM Patient Type:Observation Staff Member:Maribel Mitchell Hours: Discipline: Severity: Comment:
[2018-09-03] MEDS ORDERED: ATORVASTATIN CALCIUM 10 MG TAB PO SCH (21:00)
== END 2018-09-03 14:57 | DRG 101 ==
LOC: EDUNIT# → OBSVTOIN 08-31 02:54 → F3N 08-31 04:16
PROVIDERS: ADMIT Family Medicine; ATTEND Family Medicine
DX: G40.909 Epilepsy, unspecified, not intractable, without status epilepticus (principal); G93.49 Other encephalopathy; I69.351 Hemiplegia and hemiparesis following cerebral infarction affecting right dominant side; F01.50 Vascular dementia, unspecified severity, without behavioral disturbance, psychotic disturbance, mood disturbance, and anxiety; G93.89 Other specified disorders of brain; I10 Essential (primary) hypertension; F32.9 Major depressive disorder, single episode, unspecified; I69.320 Aphasia following cerebral infarction; I69.391 Dysphagia following cerebral infarction; E78.5 Hyperlipidemia, unspecified; Z99.3 Dependence on wheelchair; Z66 Do not resuscitate
CPT/HCPCS: 92526-GN; 92610-GN; 96374; J1953